=== PATIENT | female | born 1945 | race Caucasian/White ===

== ENCOUNTER 2018-04-28 12:58 | Inpatient (IN) | payer MEDICARE, OTHER ==
--- NOTE | 2017-05-03 07:02 | NUR ---
NO CHANGE IN PT'S STATUS, DENIES, ANY DISCOMFORTS. REPORTED OFF TO KASIE BRANHAM
[~2018-04-28] VITALS: Ht 162.6 cm; Wt 86.3 kg
[~2018-04-28 12:58] MED LIST: ALDACTONE25 MG PO; ASPIRIN81 MG PO; COREG CR10 MG PO; FISH OIL500 MG PO; GABAPENTIN300 MG PO; GLIPIZIDE10 MG PO; JANUVIA100 MG PO; LASIX40 MG PO; LEVOTHYROXINE50 MCG PO; LIPITOR10 MG PO; METFORMIN HCL500 MG PO; PLAVIX75 MG PO; VENLAFAXINE HCL50 MG PO; VITAMIN B-121000 MCG PO; VITAMIN D32000 UNI1 PO; ZESTRIL10 MG PO
--- OUTSIDE RECORDS SUMMARY | 2018-04-28 13:02 | XMS REPORT | Continuity of Care Document ---
Author Author [facility] Interface Address Unknown Phone Unavailable Problems Problem Status Onset Date Classification Date Reported Comments Source RIGHT ARM Active 11/12/2017 [facility] LT HEART CATH / CORONARY STENTS Active 09/06/2017 [facility] LT HEAT CATH / STENT PLACEMENT Active 08/21/2017 [facility] HTN heart dis, benign, with CHF Active Problem 10/30/2013 [facility] Hypercholesterolemia Active Problem 10/30/2013 Grace Weldon NE Old myocardial infarction Active Problem 10/30/2013 Mohannamarie Weldon Claudication Active Problem 10/30/2013 [facility] Weldon Chest pain at rest Active Problem 10/30/2013 [facility] Weldon Chronic diastolic heart failure Active Problem 10/30/2013 Grace Weldon PTCA Status Active Problem 10/30/2013 Mohannamarie Weldon Abnormal EKG Active Problem 10/30/2013 Grace Weldon Angina Active Problem 10/30/2013 Grace Weldon Dizziness and giddiness Active Problem 10/30/2013 Mohannamarie Weldon CHF Chronic Systolic Heart Failure Active Problem 10/30/2013 Grace Weldon Unspecified acute edema of lung Active Problem 10/30/2013 Grace Weldon LBBB Left Bundle Branch Block Active Problem 10/30/2013 Grace Weldon Diabetes with renal manifestations, type II or unspecified type, not stated as uncontrolled Active Problem 10/30/2013 Grace Weldon CAD, [place] Coronary Artery Active Problem 10/30/2013 Grace Weldon Hearing decreased Active Problem 09/11/2017 [facility] Depression Active Problem 09/11/2017 [facility] DM (<span ID="[id number]">Confirmed</span>) Active Problem 09/11/2017 [facility] Thyroid disease Active Problem 09/11/2017 [facility] SOB on exertion(<span ID="[id number]">Confirmed</span>) Active Problem 09/11/2017 [facility] Hypercholesteremia Active Problem 09/11/2017 [facility] HTN (<span ID="[id number]">Confirmed</span>) Active Problem 09/11/2017 [facility] Heart attack Resolved Problem 09/11/2017 [facility] ATHSCL HEART DISEASE OF [place] CORONARY Active [facility] STIFFNESS OF RIGHT SHOULDER, NOT ELSEWHE Active [facility] ADHESIVE CAPSULITIS OF RIGHT SHOULDER Active [facility] OTHER SHOULDER LESIONS, RIGHT SHOULDER Active [facility] PAIN IN RIGHT SHOULDER Active [facility] Medications Medication Details Route Status Patient Instructions Ordering Provider Order Date Source pioglitazone 15 mg, 1 tab, Route: PO, Drug form: TAB, Daily, Dosing Weight 80.909, kg, Start date: 09/08/17 9:00:00 CDT, Duration: 30 day, Stop date: 10/07/17 9:00:00 CDTNotes: (Same as: Actos) Inactive 09/08/2017 [facility] Fish Oil 1,200 mg, Route: PO, Drug form: CAP, TID, Dosing Weight 80.909, kg, Start date: 09/08/17 9:00:00 CDT, Duration: 30 day, Stop date: 10/07/17 17:00:00 CDT No Longer Active 09/08/2017 [facility] 24 HR Metoprolol Tartrate 25 MG Extended Release Tablet [Toprol] 25 mg, 1 tab, Route: PO, Drug form: ERTAB, Daily, Start date: 09/08/17 9:00:00 CDT, Duration: 30 day, Stop date: 10/07/17 9:00:00 CDTNotes: (Same as: Toprol XL) Do Not Crush Inactive 09/08/2017 [facility] Lisinopril 10 mg, 2 tab, Route: PO, Drug form: TAB, Daily, Dosing Weight 80.909, kg, Start date: 09/08/17 9:00:00 CDT, Duration: 30 day, Stop date: 10/07/17 9:00:00 CDTNotes: (Same as: Prinivil, Zestril) Inactive 09/08/2017 [facility] gabapentin 300 MG Oral Capsule 300 mg, 1 cap, Route: PO, Drug form: CAP, Daily, Dosing Weight 80.909, kg, Start date: 09/08/17 9:00:00 CDT, Duration: 30 day, Stop date: 10/07/17 9:00:00 CDTNotes: (Same as: Neurontin) Inactive 09/08/2017 [facility] Furosemide 20 MG Oral Tablet 20 mg, 1 tab, Route: PO, Drug form: TAB, Daily, Dosing Weight 80.909, kg, Start date: 09/08/17 9:00:00 CDT, Duration: 30 day, Stop date: 10/07/17 9:00:00 CDTNotes: (Same as: Lasix) May cause GI upset. Give with food or milk. Inactive 09/08/2017 [facility] clopidogrel 75 mg, 1 tab, Route: PO, Drug form: TAB, Daily, Dosing Weight 80.909, kg, Start date: 09/08/17 9:00:00 CDT, Duration: 30 day, Stop date: 10/07/17 9:00:00 CDTNotes: (Same As: Plavix) Inactive 09/08/2017 [facility] atorvastatin 20 mg, 2 tab, Route: PO, Drug form: TAB, Daily, Dosing Weight 80.909, kg, Start date: 09/08/17 9:00:00 CDT, Duration: 30 day, Stop date: 10/07/17 9:00:00 CDTNotes: (Same As: Lipitor) Inactive 09/08/2017 [facility] MaxEPA 1 gm, 1 cap, Route: PO, Drug form: CAP, TID, Start date: 09/08/17 9:00:00 CDT, Duration: 30 day, Stop date: 10/07/17 17:00:00 CDTNotes: (Same as: MaxEPA, [place] 3 fish oil ) Non-Formulary Drug Inactive 09/08/2017 [facility] Thyroxine 100 microgram, 1 tab, Route: PO, Drug form: TAB, Q630AM, Dosing Weight 80.909, kg, Start date: 09/08/17 6:30:00 CDT, Duration: 30 day, Stop date: 10/07/17 6:30:00 CDTNotes: Take 1 hour before or 2 hours after meal; Enteral feeds may interefere with the absorption of this medication. (Same as:Levothroid, Synthroid) Inactive 09/08/2017 [facility] Famotidine 20 mg, 1 tab, Route: PO, Drug form: TAB, Q24H, Dosing Weight 80.909, kg, Start date: 09/07/17 21:00:00 CDT, Duration: 30 day, Stop date: 10/06/17 21:00:00 CDTNotes: (Same as: Pepcid) No Longer Active 09/08/2017 [facility] Aspirin 81 MG Enteric Coated Tablet 81 mg, 1 tab, Route: PO, Drug form: ECTAB, Daily, Dosing Weight 80.909, kg, Start date: 09/07/17 18:14:00 CDT, Duration: 30 day, Stop date: 10/07/17 9:00:00 CDTNotes: Do not crush or chew. (Same As: Ecotrin) No Longer Active 09/07/2017 [facility] Nitroglycerin 0.4 mg, 1 tab, Route: SL, Drug form: TAB, Q5Min, Dosing Weight 80.909, kg, PRN Chest Pain, Start date: 09/07/17 17:48:00 CDT, Duration: 3 doses or times, Stop date: Limited # of timesNotes: (Same as: Nitroquick, Nitrostat) "Do Not Crush" Sublingual tablet No Longer Active 09/07/2017 [facility] Diphenhydramine 25 mg, 1 tab, Route: PO, Drug form: TAB, Bedtime, Dosing Weight 80.909, kg, PRN Insomnia, Start date: 09/07/17 17:48:00 CDT, Duration: 30 day, Stop date: 10/07/17 17:47:00 CDT No Longer Active 09/07/2017 [facility] Morphine 4 mg, 2 mL, Route: IVP, Drug form: SOLN, Q2H, Dosing Weight 80.909, kg, PRN Pain Score 7-10, Start date: 09/07/17 17:48:00 CDT, Duration: 30 day, Stop date: 10/07/17 17:47:00 CDT No Longer Active 09/07/2017 [facility] Ondansetron 4 mg, 1 tab, Route: PO, Drug form: TAB, Q8H, Dosing Weight 80.909, kg, PRN Nausea & Vomiting, Start date: 09/07/17 17:48:00 CDT, Duration: 30 day, Stop date: 10/07/17 17:47:00 CDTNotes: (Same as: Zofran) No Longer Active 09/07/2017 [facility] Acetaminophen 325 MG / Hydrocodone Bitartrate 5 MG Oral Tablet 1 tab, Route: PO, Drug Form: TAB, Dosing Weight 80.909, kg, Q4H, PRN Pain Score 4-6, Start date: 09/07/17 17:48:00 CDT, Duration: 30 day, Stop date: 10/07/17 17:47:00 CDTNotes: (Same as: [place] 325/5) Do not exceed 4gm/day of acetaminophen. No Longer Active 09/07/2017 [facility] Sodium Chloride 0.9% IV 750 mL 750 mL, Rate: 75 ml/hr, Infuse over: 10 hr, Route: IV, Dosing Weight 80.909 kg, Total Volume: 750, Start date: 09/07/17 17:48:00 CDT, Duration: 10 hr, Stop date: 09/08/17 3:47:00 CDT, 1.94, m2 No Longer Active 09/07/2017 [facility] Sodium Chloride 0.9% IV 1,000 mL 1,000 mL, Rate: 100 ml/hr, Infuse over: 10 hr, Route: IV, Dosing Weight 80.909 kg, Total Volume: 1,000, Start date: 09/07/17 12:42:00 CDT, Duration: 30 day, Stop date: 10/07/17 12:41:00 CDT, 1.94, m2 No Longer Active 09/07/2017 [facility] Benadryl 50 mg, Route: PO, ONCE, Dosing Weight 80.909, kg, Start date: 09/07/17 12:42:00 CDT, Stop date: 09/07/17 12:42:00 CDT Inactive 09/07/2017 [facility] Alprazolam 0.5 MG Oral Tablet [Xanax] 0.5 mg, Route: PO, Drug form: TAB, ONCE, Dosing Weight 80.909, kg, Start date: 09/07/17 12:42:00 CDT, Stop date: 09/07/17 12:42:00 CDT Inactive 09/07/2017 [facility] Vitamin D3 See Instructions, 0 Refill(s) Active 09/07/2017 [facility] naproxen 500 mg oral tablet 500 mg=1 tab, PO, BID, # 60 tab, 0 Refill(s) Active 09/07/2017 [facility] ciprofloxacin 500 mg/5 mL oral liquid 250 mg=2.5 mL, PO, Q12H, # 100 mL, 0 Refill(s) Active 09/07/2017 [facility] Nitroglycerin 0.4 mg, Route: SL, Drug form: TAB, Q5Min, Dosing Weight 81.818, kg, PRN Chest Pain, Start date: 08/29/17 16:50:00 CDT, Duration: 3 doses or times, Stop date: Limited # of times Inactive 08/29/2017 [facility] Acetaminophen 325 MG / Hydrocodone Bitartrate 5 MG Oral Tablet 1 tab, Route: PO, Dosing Weight 81.818, kg, Q4H, PRN Pain Score 4-6, Start date: 08/29/17 16:50:00 CDT, Duration: 30 day, Stop date: 09/28/17 16:49:00 CDT Inactive 08/29/2017 [facility] Morphine 4 mg, Route: IVP, Q2H, Dosing Weight 81.818, kg, PRN Pain Score 7-10, Start date: 08/29/17 16:50:00 CDT, Duration: 30 day, Stop date: 09/28/17 16:49:00 CDT Inactive 08/29/2017 [facility] Sodium Chloride 0.9% IV 750 mL 750 mL, Rate: 75 ml/hr, Infuse over: 10 hr, Route: IV, Dosing Weight 81.818 kg, Total Volume: 750, Start date: 08/29/17 16:50:00 CDT, Duration: 10 hr, Stop date: 08/30/17 2:49:00 CDT, 1.95, m2 Inactive 08/29/2017 [facility] clopidogrel 75 mg oral tablet 75 mg=1 tab, PO, Daily, # 90 tab, 1 Refill(s) Active 08/29/2017 [facility] normal saline 0.9% IV 1,000 mL 1,000 mL, Rate: 100 ml/hr, Infuse over: 10 hr, Route: IV, Dosing Weight 81.818 kg, Total Volume: 1,000, Start date: 08/29/17 14:40:00 CDT, Duration: 30 day, Stop date: 09/28/17 14:39:00 CDT, 1.95, m2 Inactive 08/29/2017 [facility] Benadryl 50 mg, 1 cap, Route: PO, Drug form: CAP, ONCE, Dosing Weight 81.818, kg, Start date: 08/29/17 14:17:00 CDT, Stop date: 08/29/17 14:17:00 CDTNotes: (Same as: Benadryl) Inactive 08/29/2017 [facility] Alprazolam 0.5 MG Oral Tablet [Xanax] 0.5 mg, 1 tab, Route: PO, Drug form: TAB, TID, Dosing Weight 81.818, kg, PRN Anxiety, Start date: 08/29/17 14:17:00 CDT, Duration: 30 day, Stop date: 09/28/17 14:16:00 CDTNotes: With food or milk (Same as: Xanax) Inactive 08/29/2017 [facility] Acetaminophen 300 MG / Codeine Phosphate 60 MG Oral Tablet 1 tab, PO, Q6H, 0 Refill(s) Active 08/23/2017 [facility] Fish Oil 1200 mg oral capsule 1,200 mg=1 cap, PO, TID, 0 Refill(s) Active 08/23/2017 [facility] Aspirin 81 MG Enteric Coated Tablet 81 mg=1 tab, PO, Daily, # 90 tab, 3 Refill(s) Active 08/23/2017 [facility] metFORMIN 1000 mg oral tablet, extended release 1,000 mg=1 tab, PO, Daily, 0 Refill(s) Active 08/23/2017 [facility] lisinopril 10 mg oral tablet 10 mg=1 tab, PO, Daily, 0 Refill(s) Active 08/23/2017 [facility] levothyroxine 100 mcg (0.1 mg) oral tablet 100 microgram=1 tab, PO, Daily, 0 Refill(s) Active 08/23/2017 [facility] Vitamin D2 PO, 0 Refill(s) Active 08/23/2017 [facility] atorvastatin 20 mg oral tablet 20 mg=1 tab, PO, Daily, 0 Refill(s) Active 08/23/2017 [facility] pioglitazone 15 mg oral tablet 15 mg=1 tab, PO, Daily, 0 Refill(s) Active 08/23/2017 [facility] gabapentin 300 MG Oral Capsule 300 mg=1 cap, PO, Daily, # 90 cap, 0 Refill(s) Active 08/23/2017 [facility] Furosemide 20 MG Oral Tablet 20 mg=1 tab, PO, Daily, 0 Refill(s) Active 08/23/2017 [facility] metoprolol 25 mg oral tablet, extended release 25 mg=1 tab, PO, Daily, # 30 tab, 0 Refill(s) Active 08/23/2017 [facility] Allergies, Adverse Reactions, Alerts Substance Category Reaction Severity Reaction type Status Date Reported Comments Source Immunizations Immunization Date Given Site Status Last Updated Comments Source Results Order Name Results Value Reference Range Date Interpretation Comments Source ELECTROLYTES AGAP 15.4 meq/L 10.0 - 20.0 09/07/2017 [facility] ELECTROLYTES eGFR 30 mL/min/1.73m2 09/07/2017 Result Comment: The eGFR is calculated using the CKD-EPI formula. In most young, healthy individuals the eGFR will be >90 mL/min/1.73m2. The eGFR declines with age. An eGFR of 60-89 may be normal in some populations, particularly the elderly, for whom the CKD-EPI formula has not been extensively validated. Use of the eGFR is not recommended in the following populations: Individuals with unstable creatinine concentrations, including patients and those with serious co-morbid conditions. Patients with extremes in muscle mass or diet. The data above are obtained from the National Kidney Disease Education Program (NKDEP) which additionally recommends that when the eGFR is used in patients with extremes of body mass index for purposes of drug dosing, the eGFR should be multiplied by the estimated BMI. [facility] ELECTROLYTES Potassium Lvl 4.4 meq/L 3.5 - 5.1 09/07/2017 [facility] ELECTROLYTES Sodium Lvl 142 meq/L 135 - 145 09/07/2017 [facility] ELECTROLYTES Calcium Lvl 9.2 mg/dL 8.5 - 10.5 09/07/2017 [facility] ELECTROLYTES CO2 26 meq/L 24 - 32 09/07/2017 [facility] ELECTROLYTES Chloride Lvl 105 meq/L 95 - 109 09/07/2017 [facility] ELECTROLYTES Creatinine Lvl 1.69 mg/dL 0.50 - 1.40 09/07/2017 [facility] ELECTROLYTES BUN 22 mg/dL 7 - 22 09/07/2017 [facility] ELECTROLYTES Glucose Lvl 89 mg/dL 70 - 99 09/07/2017 [facility] HEMATOLOGY Basophils # 0.1 K/CMM 0.0 - 0.2 09/07/2017 [facility] HEMATOLOGY Lymphocytes # 2.8 K/CMM 1.0 - 5.5 09/07/2017 [facility] HEMATOLOGY Monocytes # 1.1 K/CMM 0.0 - 0.8 09/07/2017 [facility] HEMATOLOGY Segs-Bands # 6.2 K/CMM 1.5 - 8.1 09/07/2017 [facility] Basophils 0.7 % 0.0 - 1.0 09/07/2017 [facility] HEMATOLOGY Eosinophils # 0.3 K/CMM 0.0 - 0.5 09/07/2017 [facility] HEMATOLOGY Segs 58.8 % 45.0 - 75.0 09/07/2017 [facility] Monocytes 10.9 % 2.0 - 12.0 09/07/2017 [facility] Eosinophils 2.6 % 0.0 - 4.0 09/07/2017 [facility] Lymphocytes 27.0 % 20.0 - 40.0 09/07/2017 [facility] MCHC 33.3 g/dL 32.0 - 36.0 09/07/2017 [facility] RDW 12.3 % 11.5 - 14.5 09/07/2017 [facility] Platelet 249 K/CMM 133 - 450 09/07/2017 [facility] MPV 9.1 fL 7.4 - 10.4 09/07/2017 [facility] MCH 33.0 pg 27.0 - 31.0 09/07/2017 [facility] MCV 99.0 fL 80.0 - 98.0 09/07/2017 [facility] Hgb 10.4 g/dL 12.0 - 16.0 09/07/2017 [facility] Hct 31.2 % 36.0 - 48.0 09/07/2017 [facility] RBC 3.15 M/CMM 4.20 - 5.40 09/07/2017 [facility] WBC 10.4 K/CMM 3.7 - 10.4 09/07/2017 [facility] CHEM PANEL eGFR 41 mL/min/1.73m2 08/23/2017 Result Comment: The eGFR is calculated using the CKD-EPI formula. In most young, healthy individuals the eGFR will be >90 mL/min/1.73m2. The eGFR declines with age. An eGFR of 60-89 may be normal in some populations, particularly the elderly, for whom the CKD-EPI formula has not been extensively validated. Use of the eGFR is not recommended in the following populations: Individuals with unstable creatinine concentrations, including patients and those with serious co-morbid conditions. Patients with extremes in muscle mass or diet. The data above are obtained from the National Kidney Disease Education Program (NKDEP) which additionally recommends that when the eGFR is used in patients with extremes of body mass index for purposes of drug dosing, the eGFR should be multiplied by the estimated BMI. [facility] CHEM PANEL Alk Phos 56 unit/L 39 - 136 08/23/2017 [facility]M PANEL Bili Total 0.4 mg/dL 0.2 - 1.3 08/23/2017 [facility]M PANEL ALT 16 unit/L 0 - 65 08/23/2017 [facility] PANEL AST 17 unit/L 0 - 37 08/23/2017 [facility] PAN[facility] Sodium Lvl 144 meq/L 135 - 145 08/23/2017 [facility] Creatinine Lvl 1.29 mg/dL 0.50 - 1.40 08/23/2017 [facility] Chloride Lvl 105 meq/L 95 - 109 08/23/2017 [facility] PANEL Potassium Lvl 3.7 meq/L 3.5 - 5.1 08/23/2017 [facility]M PANEL CO2 30 meq/L 24 - 32 08/23/2017 [facility] PAN[facility] BUN 18 mg/dL 7 - 22 08/23/2017 [facility] PAN[facility] Glucose Lvl 192 mg/dL 70 - 99 08/23/2017 [facility] PANEL Total Protein 8.0 g/dL 6.4 - 8.4 08/23/2017 [facility] PAN[facility] Calcium Lvl 9.6 mg/dL 8.5 - 10.5 08/23/2017 [facility] PANEL Albumin Lvl 3.4 g/dL 3.5 - 5.0 08/23/2017 [facility] PAN[facility] Globulin 4.6 g/dL 2.7 - 4.2 08/23/2017 [facility] PAN[facility] A/G Ratio 0.7 0.7 - 1.6 08/23/2017 [facility] PAN[facility] B/C Ratio 14 6 - 25 08/23/2017 [facility]M PANEL AGAP 12.7 meq/L 10.0 - 20.0 08/23/2017 [facility] HEMATOLOGY INR 0.94 0.85 - 1.17 08/23/2017 [facility] HEMATOLOGY PT 12.6 s 12.0 - 14.7 08/23/2017 [facility] HEMATOLOGY Eosinophils # 0.1 K/CMM 0.0 - 0.5 08/23/2017 [facility] HEMATOLOGY Monocytes # 0.6 K/CMM 0.0 - 0.8 08/23/2017 [facility] HEMATOLOGY Eosinophils 1.5 % 0.0 - 4.0 08/23/2017 [facility] HEMATOLOGY Basophils 0.5 % 0.0 - 1.0 08/23/2017 [facility] HEMATOLOGY Lymphocytes # 1.6 K/CMM 1.0 - 5.5 08/23/2017 [facility] HEMATOLOGY Segs-Bands # 5.2 K/CMM 1.5 - 8.1 08/23/2017 [facility] HEMATOLOGY Segs 68.6 % 45.0 - 75.0 08/23/2017 [facility] HEMATOLOGY Monocytes 8.2 % 2.0 - 12.0 08/23/2017 [facility] Lymphocytes 21.2 % 20.0 - 40.0 08/23/2017 [facility] HEMATOLOGY MPV 9.1 fL 7.4 - 10.4 08/23/2017 [facility] HEMATOLOGY RDW 11.9 % 11.5 - 14.5 08/23/2017 [facility] HEMATOLOGY Platelet 248 K/CMM 133 - 450 08/23/2017 [facility] MCHC 33.5 g/dL 32.0 - 36.0 08/23/2017 [facility] Hgb 10.8 g/dL 12.0 - 16.0 08/23/2017 [facility] HEMATOLOGY RBC 3.30 M/CMM 4.20 - 5.40 08/23/2017 [facility] WBC 7.6 K/CMM 3.7 - 10.4 08/23/2017 [facility] MCH 32.8 pg 27.0 - 31.0 08/23/2017 [facility] HEMATOLOGY MCV 98.1 fL 80.0 - 98.0 08/23/2017 [facility] HEMATOLOGY Hct 32.4 % 36.0 - 48.0 08/23/2017 [facility] LIPIDS VLDL 16 08/23/2017 [facility] LIPIDS LDL (Calculated) 68 mg/dL <=99 mg/dL 08/23/2017 [facility] LIPIDS Chol 138 mg/dL <=199 mg/dL 08/23/2017 [facility] LIPIDS Trig 80 mg/dL <=149 mg/dL 08/23/2017 [facility] LIPIDS HDL 54 mg/dL >=61 mg/dL 08/23/2017 [facility] LIPIDS CHD Risk 2.56 3.90 - 5.80 08/23/2017 [facility] Vital Signs Vital Sign Value Date Comments Source Respitory Rate 10 09/08/2017 [facility] Systolic (mm Hg) 132 09/08/2017 [facility] Diastolic (mm Hg) 60 09/08/2017 [facility] Respitory Rate 11 09/08/2017 [facility] Systolic (mm Hg) 129 09/08/2017 [facility] Diastolic (mm Hg) 55 09/08/2017 [facility] Systolic (mm Hg) 129 09/08/2017 [facility] Diastolic (mm Hg) 72 09/08/2017 [facility] Respitory Rate 15 09/08/2017 [facility] BMI Calculated 30.62 09/07/2017 [facility] Weight 80.909 09/07/2017 [facility] Height 162.56 cm 09/07/2017 [facility] Height 162.56 cm 08/29/2017 [facility] Weight 81.818 08/29/2017 [facility] BMI Calculated 30.96 08/29/2017 [facility] Respitory Rate 16 08/23/2017 [facility] Systolic (mm Hg) 164 08/23/2017 [facility] Diastolic (mm Hg) 79 08/23/2017 [facility] Heart Rate 69 08/23/2017 [facility] Temperature Oral (F) 98.2 F 08/23/2017 [facility] BMI Calculated 29.76 08/23/2017 [facility] Height 162.56 cm 08/23/2017 [facility] Weight 78.636 08/23/2017 [facility] Encounters Location Location Details Encounter Type Encounter Number Reason For Visit Attending Provider ADM Date DC Date Status Source Grace Weldon MD PA Unknown [id number] 10/15/2013 10/15/2013 Grace Weldon [facility] Bedded Outpatient [id number] Bebo Goldstein 08/29/2017 08/30/2017 [facility] Bedded Outpatient [id number] Junior Young 09/07/2017 09/08/2017 [facility] Procedures Procedure Code Date Perfomer Comments Source Cardiac catheterisation [id number] 04/10/2010 [facility] Bilateral tubal ligation [id number] [facility] Cardiac catheterization [id number] [facility] Cholecystectomy [id number] [facility] Stent placement [id number] [facility]
--- OUTSIDE RECORDS SUMMARY | 2018-04-28 13:02 | XMS REPORT | Summary of Care ---
Author Author [facility] Organization [facility] Address Unknown Phone Unavailable Encounter ROBINA Taylor(PRACHI) [id number] Date(s): 08/29/17 - 08/29/17 [facility] [address] [place] [address]- Discharge Disposition: Home or Self Care Attending Physician: Junior Young MD Referring Physician: Bebo Hernandez MD Vital Signs Most recent to 1 2 oldest [Reference Range]: Height 162.56 cm 162.56 cm (08/29/17 2:12 PM) (08/23/17 11:32 AM) Temperature Oral 98.2 DegF [96.4-99.1 DegF] (08/23/17 11:33 AM) Blood Pressure 164/79 mmHg [90-140/60-90 mmHg] *HI* (08/23/17 11:33 AM) Respiratory Rate 16 BRMIN [14-20 BRMIN] (08/23/17 11:33 AM) Peripheral Pulse 69 bpm Rate [60-100 bpm] (08/23/17 11:33 AM) Weight 81.818 kg 78.636 kg (08/29/17 2:12 PM) (08/23/17 11:32 AM) Body Mass Index 30.96 m2 29.76 m2 (08/29/17 2:12 PM) (08/23/17 11:32 AM) Problem List Condition Effective Dates Status Health Status Informant Hearing Active decreased(Confirmed) Depression(Confirmed Active ) DM (diabetes Active mellitus)(Confirmed) Thyroid Active disease(Confirmed) SOB (shortness of Active breath) on exertion(Confirmed) Hypercholesteremia(C Active onfirmed) HTN Active (hypertension)(Confi rmed) Heart Resolved attack(Confirmed) Allergies, Adverse Reactions, Alerts Substance Reaction Severity Status NKDA Active Medications acetaminophen-codeine 300 mg-60 mg oral tablet 1 tab, PO, Q6H, 0 Refill(s) Start Date: 08/23/17 Status: Ordered acetaminophen-hydrocodone 325 mg-5 mg oral tablet 1 tab, Route: PO, Dosing Weight 81.818, kg, Q4H, PRN Pain Score 4-6, Start date: 08/29/17 16:50:00 CDT, Duration: 30 day, Stop date: 09/28/17 16:49:00 CDT Start Date: 08/29/17 Stop Date: 08/29/17 Status: Discontinued aspirin 81 mg tablet, enteric coated 81 mg=1 tab, PO, Daily, # 90 tab, 3 Refill(s) Start Date: 08/23/17 Status: Ordered atorvastatin 20 mg oral tablet 20 mg=1 tab, PO, Daily, 0 Refill(s) Start Date: 08/23/17 Status: Ordered Benadryl 50 mg, 1 cap, Route: PO, Drug form: CAP, ONCE, Dosing Weight 81.818, kg, Start d ate: 08/29/17 14:17:00 CDT, Stop date: 08/29/17 14:17:00 CDT Notes: (Same as: Benadryl) Start Date: 08/29/17 Stop Date: 08/29/17 Status: Ordered clopidogrel 75 mg oral tablet 75 mg=1 tab, PO, Daily, # 90 tab, 1 Refill(s) Start Date: 08/29/17 Stop Date: 02/25/18 Status: Ordered Fish Oil 1200 mg oral capsule 1,200 mg=1 cap, PO, TID, 0 Refill(s) Start Date: 08/23/17 Status: Ordered furosemide 20 mg oral tablet 20 mg=1 tab, PO, Daily, 0 Refill(s) Start Date: 08/23/17 Status: Ordered gabapentin 300 mg oral capsule 300 mg=1 cap, PO, Daily, # 90 cap, 0 Refill(s) Start Date: 08/23/17 Status: Ordered levothyroxine 100 mcg (0.1 mg) oral tablet 100 microgram=1 tab, PO, Daily, 0 Refill(s) Start Date: 08/23/17 Status: Ordered lisinopril 10 mg oral tablet 10 mg=1 tab, PO, Daily, 0 Refill(s) Start Date: 08/23/17 Status: Ordered metFORMIN 1000 mg oral tablet, extended release 1,000 mg=1 tab, PO, Daily, 0 Refill(s) Start Date: 08/23/17 Status: Ordered metoprolol 25 mg oral tablet, extended release 25 mg=1 tab, PO, Daily, # 30 tab, 0 Refill(s) Start Date: 08/23/17 Status: Ordered morphine Sulfate 4 mg, Route: IVP, Q2H, Dosing Weight 81.818, kg, PRN Pain Score 7-10, Start date : 08/29/17 16:50:00 CDT, Duration: 30 day, Stop date: 09/28/17 16:49:00 CDT Start Date: 08/29/17 Stop Date: 08/29/17 Status: Discontinued nitroglycerin SL Tab 0.4 mg, Route: SL, Drug form: TAB, Q5Min, Dosing Weight 81.818, kg, PRN Chest Pa in, Start date: 08/29/17 16:50:00 CDT, Duration: 3 doses or times, Stop date: Taylor gillette # of times Start Date: 08/29/17 Stop Date: 08/29/17 Status: Discontinued normal saline 0.9% IV 1,000 mL 1,000 mL, Rate: 100 ml/hr, Infuse over: 10 hr, Route: IV, Dosing Weight 81.818 k g, Total Volume: 1,000, Start date: 08/29/17 14:40:00 CDT, Duration: 30 day, Sto p date: 09/28/17 14:39:00 CDT, 1.95, m2 Start Date: 08/29/17 Stop Date: 08/29/17 Status: Discontinued pioglitazone 15 mg oral tablet 15 mg=1 tab, PO, Daily, 0 Refill(s) Start Date: 08/23/17 Status: Ordered Sodium Chloride 0.9% IV 750 mL 750 mL, Rate: 75 ml/hr, Infuse over: 10 hr, Route: IV, Dosing Weight 81.818 kg, Total Volume: 750, Start date: 08/29/17 16:50:00 CDT, Duration: 10 hr, Stop date : 08/30/17 2:49:00 CDT, 1.95, m2 Start Date: 08/29/17 Stop Date: 08/29/17 Status: Discontinued Vitamin D2 PO, 0 Refill(s) Start Date: 08/23/17 Status: Ordered Xanax 0.5 mg oral tablet 0.5 mg, 1 tab, Route: PO, Drug form: TAB, TID, Dosing Weight 81.818, kg, PRN Anx iety, Start date: 08/29/17 14:17:00 CDT, Duration: 30 day, Stop date: 09/28/17 1 4:16:00 CDT Notes: With food or milk(Same as: Xanax) Start Date: 08/29/17 Stop Date: 08/29/17 Status: Discontinued Results ELECTROLYTES Most recent to 1 oldest [Reference Range]: Sodium Lvl [135-145 144 mEq/L mEq/L] (08/23/17 11:43 AM) Potassium Lvl 3.7 mEq/L [3.5-5.1 mEq/L] (08/23/17 11:43 AM) Chloride Lvl [95-109 105 mEq/L mEq/L] (08/23/17 11:43 AM) CO2 [24-32 mEq/L] 30 mEq/L (08/23/17 11:43 AM) AGAP [10.0-20.0 12.7 mEq/L mEq/L] (08/23/17 11:43 AM) CHEM PANEL Most recent to 1 oldest [Reference Range]: Creatinine Lvl 1.29 mg/dL [0.50-1.40 mg/dL] (08/23/17 11:43 AM) eGFR 41 mL/min/1.73m2 1 *NA* (08/23/17 11:43 AM) BUN [7-22 mg/dL] 18 mg/dL (08/23/17 11:43 AM) B/C Ratio [6-25] 14 (08/23/17 11:43 AM) Glucose Lvl [70-99 192 mg/dL mg/dL] *HI* (08/23/17 11:43 AM) Total Protein 8.0 g/dL [6.4-8.4 g/dL] (08/23/17 11:43 AM) Albumin Lvl [3.5-5.0 3.4 g/dL g/dL] *LOW* (08/23/17 11:43 AM) Globulin [2.7-4.2 4.6 g/dL g/dL] *HI* (08/23/17 11:43 AM) A/G Ratio [0.7-1.6] 0.7 (08/23/17 11:43 AM) Calcium Lvl 9.6 mg/dL [8.5-10.5 mg/dL] (08/23/17 11:43 AM) ALT [0-65 unit/L] 16 unit/L (08/23/17 11:43 AM) AST [0-37 unit/L] 17 unit/L (08/23/17 11:43 AM) Alk Phos [39-136 56 unit/L unit/L] (08/23/17 11:43 AM) Bili Total [0.2-1.3 0.4 mg/dL mg/dL] (08/23/17 11:43 AM) 1Result Comment: The eGFR is calculated using the [...] from the National Kidney Disease Education Program ( NKDEP) which additionally recommends that when the eGFR is used in patients with extremes of body mass index for purposes of drug dosing, the eGFR should be mul tiplied by the estimated BMI. LIPIDS Most recent to 1 oldest [Reference Range]: CHD Risk [3.90-5.80] 2.56 *LOW* (08/23/17 11:43 AM) Chol [<=199 mg/dL] 138 mg/dL (08/23/17 11:43 AM) Trig [<=149 mg/dL] 80 mg/dL (08/23/17 11:43 AM) HDL [>=61 mg/dL] 54 mg/dL *LOW* (08/23/17 11:43 AM) LDL (Calculated) 68 mg/dL [<=99 mg/dL] (08/23/17 11:43 AM) VLDL 16 *NA* (08/23/17 11:43 AM) HEMATOLOGY Most recent to 1 oldest [Reference Range]: WBC [3.7-10.4 K/CMM] 7.6 K/CMM (08/23/17 11:43 AM) RBC [4.20-5.40 3.30 M/CMM M/CMM] *LOW* (08/23/17 11:43 AM) Hgb [12.0-16.0 g/dL] 10.8 g/dL *LOW* (08/23/17 11:43 AM) Hct [36.0-48.0 %] 32.4 % *LOW* (08/23/17:43 AM) MCV [80.0-98.0 fL] 98.1 fL *HI* (08/23/17:43 AM) MCH [27.0-31.0 pg] 32.8 pg *HI* (08/23/17 11:43 AM) MCHC [32.0-36.0 33.5 g/dL g/dL] (08/23/17 11:43 AM) RDW [11.5-14.5 %] 11.9 % (08/23/17 11:43 AM) MPV [7.4-10.4 fL] 9.1 fL (08/23/17 11:43 AM) Platelet [133-450 248 K/CMM K/CMM] (08/23/17 11:43 AM) Segs [45.0-75.0 %] 68.6 % (08/23/17 11:43 AM) Lymphocytes 21.2 % [20.0-40.0 %] (08/23/17 11:43 AM) Monocytes [2.0-12.0 8.2 % %] (08/23/17 11:43 AM) Eosinophils [0.0-4.0 1.5 % %] (08/23/17 11:43 AM) Basophils [0.0-1.0 0.5 % %] (08/23/17 11:43 AM) Segs-Bands # 5.2 K/CMM [1.5-8.1 K/CMM] (08/23/17 11:43 AM) Lymphocytes # 1.6 K/CMM [1.0-5.5 K/CMM] (08/23/17 11:43 AM) Monocytes # [0.0-0.8 0.6 K/CMM K/CMM] (08/23/17 11:43 AM) Eosinophils # 0.1 K/CMM [0.0-0.5 K/CMM] (08/23/17 11:43 AM) PT [12.0-14.7 12.6 seconds seconds] (08/23/17 11:43 AM) INR [0.85-1.17] 0.94 (08/23/17 11:43 AM) Immunizations No data available for this section Procedures Procedure Date Related Diagnosis Body Site Status Cardiac catheterisation 2010 Completed Bilateral tubal ligation Completed Cholecystectomy Completed Social History Social History Type Response Smoking Status Never smoker; Exposure to Tobacco Smoke None; Cigarette Smoking Last 365 Days No; Reg Smoking Cessation Counseling No entered on: 08/29/17 Assessment and Plan No data available for this section
--- OUTSIDE RECORDS SUMMARY | 2018-04-28 13:02 | XMS REPORT ---
Author Author Grace Weldon Organization [employer] Address Unknown Phone Unavailable Care Team Providers Care Ream Cutter Name Role Phone Grace Weldon CP Unavailable Encounters Encounter Location Date Unknown Grace Weldon MD [place] October 15, 2013 Problems Problem Type Condition ICD-9 Code Onset Dates Condition Status Problem HTN heart dis, benign, with CHF 402.11 Active Problem Hypercholesterolemia 272.0 Active Problem PA Old myocardial infarction 412 Active Problem Claudication 443.9 Active Problem Chest pain at rest 786.50 Active Problem Chronic diastolic heart failure 428.32 Active Problem PTCA Status V45.82 Active Problem Abnormal EKG 794.31 Active Problem Angina 413.9 Active Problem Dizziness and giddiness 780.4 Active Problem CHF Chronic Systolic Heart Failure 428.22 Active Problem Unspecified acute edema of lung 518.4 Active Problem LBBB Left Bundle Branch Block 426.3 Active Problem Diabetes with renal manifestations, type II or unspecified type, not stated as uncontrolled 250.40 Active Problem CAD, [place] Coronary Artery 414.01 Active Social History Social History Element Qualifiers Date Reported Smoking . Status Never Smoker September 16, 2013 Alcohol Use No. September 16, 2013 Alcohol Screening: No. Points: 0, Interpretation: Negative September 16, 2013 Marital Status: . September 16, 2013 Do you drink alcohol? No. September 16, 2013 Summary Purpose [employer] Submission
--- OUTSIDE RECORDS SUMMARY | 2018-04-28 13:03 | XMS REPORT | Summary of Care ---
Author Author [facility] Organization [facility] Address Unknown Phone Unavailable Encounter ROBINA Taylor(PRACHI) [id number] Date(s): 09/07/17 - 09/08/17 [facility] [address] [place] [address]- [phone] Discharge Disposition: Home or Self Care Attending Physician: Junior Young MD Referring Physician: Junior Young MD Vital Signs 1 2 3 Most recent to oldest [Reference Range]: 162.56 cm (09/07/17 11:24 AM) Height 132/60 mmHg (09/08/17 6:00 AM) 129/55 mmHg (09/08/17 2:00 AM) 129/72 mmHg (09/08/17 12:00 AM) Blood Pressure [90-140/60-90 mmHg] 10 BRMIN *LOW* (09/08/17 6:00 AM) 11 BRMIN *LOW* (09/08/17 2:00 AM) 15 BRMIN (09/08/17 12:00 AM) Respiratory Rate [14-20 BRMIN] 80.909 kg (09/07/17 11:24 AM) Weight 30.62 m2 (09/07/17 11:24 AM) Body Mass Index Problem List Condition Effective Dates Status Health Status Informant Hearing Active decreased(Confirmed) Depression(Confirmed Active ) DM (diabetes Active mellitus)(Confirmed) Thyroid Active disease(Confirmed) SOB (shortness of Active breath) on exertion(Confirmed) Hypercholesteremia(C Active onfirmed) HTN Active (hypertension)(Confi rmed) Heart Resolved attack(Confirmed) Allergies, Adverse Reactions, Alerts Substance Reaction Severity Status NKDA Active Medications acetaminophen-hydrocodone 325 mg-5 mg oral tablet 1 tab, Route: PO, Drug Form: TAB, Dosing Weight 80.909, kg, Q4H, PRN Pain Score 4-6, Start date: 09/07/17 17:48:00 CDT, Duration: 30 day, Stop date: 10/07/17 17 :47:00 CDT Notes: (Same as: [place] 325/5) Do not exceed 4gm/day of acetaminophen. Start Date: 09/07/17 Stop Date: 09/08/17 Status: Discontinued aspirin 81 mg tablet, enteric coated 81 mg, 1 tab, Route: PO, Drug form: ECTAB, Daily, Dosing Weight 80.909, kg, Star t date: 09/07/17 18:14:00 CDT, Duration: 30 day, Stop date: 10/07/17 9:00:00 CDT Notes: Do not crush or chew.(Same As: Ecotrin) Start Date: 09/07/17 Stop Date: 09/08/17 Status: Discontinued atorvastatin 20 mg, 2 tab, Route: PO, Drug form: TAB, Daily, Dosing Weight 80.909, kg, Start date: 09/08/17 9:00:00 CDT, Duration: 30 day, Stop date: 10/07/17 9:00:00 CDT Notes: (Same As: Lipitor) Start Date: 09/08/17 Stop Date: 09/08/17 Status: Discontinued Benadryl 50 mg, Route: PO, ONCE, Dosing Weight 80.909, kg, Start date: 09/07/17 12:42:00 CDT, Stop date: 09/07/17 12:42:00 CDT Start Date: 09/07/17 Stop Date: 09/07/17 Status: Completed ciprofloxacin 500 mg/5 mL oral liquid 250 mg=2.5 mL, PO, Q12H, # 100 mL, 0 Refill(s) Start Date: 09/07/17 Stop Date: 09/17/17 Status: Ordered clopidogrel 75 mg, 1 tab, Route: PO, Drug form: TAB, Daily, Dosing Weight 80.909, kg, Start date: 09/08/17 9:00:00 CDT, Duration: 30 day, Stop date: 10/07/17 9:00:00 CDT Notes: (Same As: Plavix) Start Date: 09/08/17 Stop Date: 09/08/17 Status: Discontinued diphenhydrAMINE 25 mg, 1 tab, Route: PO, Drug form: TAB, Bedtime, Dosing Weight 80.909, kg, PRN Insomnia, Start date: 09/07/17 17:48:00 CDT, Duration: 30 day, Stop date: 17:47:00 CDT Start Date: 09/07/17 Stop Date: 09/08/17 Status: Discontinued famotidine 20 mg, 1 tab, Route: PO, Drug form: TAB, Q24H, Dosing Weight 80.909, kg, Start d ate: 09/07/17 21:00:00 CDT, Duration: 30 day, Stop date: 10/06/17 21:00:00 CDT Notes: (Same as: Pepcid) Start Date: 09/07/17 Stop Date: 09/08/17 Status: Discontinued Fish Oil 1,200 mg, Route: PO, Drug form: CAP, TID, Dosing Weight 80.909, kg, Start date: 09/08/17 9:00:00 CDT, Duration: 30 day, Stop date: 10/07/17 17:00:00 CDT Start Date: 09/08/17 Stop Date: 09/07/17 Status: Deleted furosemide 20 mg oral tablet 20 mg, 1 tab, Route: PO, Drug form: TAB, Daily, Dosing Weight 80.909, kg, Start date: 09/08/17 9:00:00 CDT, Duration: 30 day, Stop date: 10/07/17 9:00:00 CDT Notes: (Same as: Lasix) May cause GI upset. Give with food or milk. Start Date: 09/08/17 Stop Date: 09/08/17 Status: Discontinued gabapentin 300 mg oral capsule 300 mg, 1 cap, Route: PO, Drug form: CAP, Daily, Dosing Weight 80.909, kg, Start date: 09/08/17 9:00:00 CDT, Duration: 30 day, Stop date: 10/07/17 9:00:00 CDT Notes: (Same as: Neurontin) Start Date: 09/08/17 Stop Date: 09/08/17 Status: Discontinued levothyroxine 100 microgram, 1 tab, Route: PO, Drug form: TAB, Q630AM, Dosing Weight 80.909, k g, Start date: 09/08/17 6:30:00 CDT, Duration: 30 day, Stop date: 10/07/17 6:30: 00 CDT Notes: Take 1 hour before or 2 hours after meal; Enteral feeds may interefere wi th the absorption of this medication. (Same as:Levothroid, Synthroid) Start Date: 09/08/17 Stop Date: 09/08/17 Status: Discontinued lisinopril 10 mg, 2 tab, Route: PO, Drug form: TAB, Daily, Dosing Weight 80.909, kg, Start date: 09/08/17 9:00:00 CDT, Duration: 30 day, Stop date: 10/07/17 9:00:00 CDT Notes: (Same as: Prinivil, Zestril) Start Date: 09/08/17 Stop Date: 09/08/17 Status: Discontinued MaxEPA 1 gm, 1 cap, Route: PO, Drug form: CAP, TID, Start date: 09/08/17 9:00:00 CDT, D uration: 30 day, Stop date: 10/07/17 17:00:00 CDT Notes: (Same as: MaxEPA, [place] 3 fish oil )Non-Formulary Drug Start Date: 09/08/17 Stop Date: 09/08/17 Status: Discontinued morphine Sulfate 4 mg, 2 mL, Route: IVP, Drug form: SOLN, Q2H, Dosing Weight 80.909, kg, PRN Pain Score 7-10, Start date: 09/07/17 17:48:00 CDT, Duration: 30 day, Stop date: 17:47:00 CDT Start Date: 09/07/17 Stop Date: 09/08/17 Status: Discontinued naproxen 500 mg oral tablet 500 mg=1 tab, PO, BID, # 60 tab, 0 Refill(s) Start Date: 09/07/17 Status: Ordered nitroglycerin SL Tab 0.4 mg, 1 tab, Route: SL, Drug form: TAB, Q5Min, Dosing Weight 80.909, kg, PRN C hest Pain, Start date: 09/07/17 17:48:00 CDT, Duration: 3 doses or times, Stop d ate: Limited # of times Notes: (Same as:Nitroquick, Nitrostat)"Do Not Crush" Sublingual tablet Start Date: 09/07/17 Stop Date: 09/08/17 Status: Discontinued ondansetron 4 mg, 1 tab, Route: PO, Drug form: TAB, Q8H, Dosing Weight 80.909, kg, PRN Nause a & Vomiting, Start date: 09/07/17 17:48:00 CDT, Duration: 30 day, Stop date: 10/07/17 17:47:00 CDT Notes: (Same as: Zofran) Start Date: 09/07/17 Stop Date: 09/08/17 Status: Discontinued pioglitazone 15 mg, 1 tab, Route: PO, Drug form: TAB, Daily, Dosing Weight 80.909, kg, Start date: 09/08/17 9:00:00 CDT, Duration: 30 day, Stop date: 10/07/17 9:00:00 CDT Notes: (Same as: Actos) Start Date: 09/08/17 Stop Date: 09/08/17 Status: Discontinued Sodium Chloride 0.9% IV 1,000 mL 1,000 mL, Rate: 100 ml/hr, Infuse over: 10 hr, Route: IV, Dosing Weight 80.909 k g, Total Volume: 1,000, Start date: 09/07/17 12:42:00 CDT, Duration: 30 day, Sto p date: 10/07/17 12:41:00 CDT, 1.94, m2 Start Date: 09/07/17 Stop Date: 09/08/17 Status: Discontinued Sodium Chloride 0.9% IV 750 mL 750 mL, Rate: 75 ml/hr, Infuse over: 10 hr, Route: IV, Dosing Weight 80.909 kg, Total Volume: 750, Start date: 09/07/17 17:48:00 CDT, Duration: 10 hr, Stop date : 09/08/17 3:47:00 CDT, 1.94, m2 Start Date: 09/07/17 Stop Date: 09/08/17 Status: Completed Toprol-XL 25 mg oral tablet, extended release 25 mg, 1 tab, Route: PO, Drug form: ERTAB, Daily, Start date: 09/08/17 9:00:00 C DT, Duration: 30 day, Stop date: 10/07/17 9:00:00 CDT Notes: (Same as: Toprol XL) Do Not Crush Start Date: 09/08/17 Stop Date: 09/08/17 Status: Discontinued Vitamin D3 See Instructions, 0 Refill(s) Start Date: 09/07/17 Status: Ordered Xanax 0.5 mg oral tablet 0.5 mg, Route: PO, Drug form: TAB, ONCE, Dosing Weight 80.909, kg, Start date: 0 09/07/17 12:42:00 CDT, Stop date: 09/07/17 12:42:00 CDT Start Date: 09/07/17 Stop Date: 09/07/17 Status: Completed Results ELECTROLYTES Most recent to 1 oldest [Reference Range]: Sodium Lvl [135-145 142 mEq/L mEq/L] (09/07/17 11:26 AM) Potassium Lvl 4.4 mEq/L [3.5-5.1 mEq/L] (09/07/17 11:26 AM) Chloride Lvl [95-109 105 mEq/L mEq/L] (09/07/17 11:26 AM) CO2 [24-32 mEq/L] 26 mEq/L (09/07/17 11:26 AM) AGAP [10.0-20.0 15.4 mEq/L mEq/L] (09/07/17 11:26 AM) CHEM PANEL Most recent to 1 oldest [Reference Range]: Creatinine Lvl 1.69 mg/dL [0.50-1.40 mg/dL] *HI* (09/07/17 11:26 AM) eGFR 30 mL/min/1.73m2 1 *NA* (09/07/17 11:26 AM) BUN [7-22 mg/dL] 22 mg/dL (09/07/17 11:26 AM) Glucose Lvl [70-99 89 mg/dL mg/dL] (09/07/17 11:26 AM) Calcium Lvl 9.2 mg/dL [8.5-10.5 mg/dL] (09/07/17 11:26 AM) 1Result Comment: The eGFR is calculated [...] be mul tiplied by the estimated BMI. HEMATOLOGY Most recent to 1 oldest [Reference Range]: WBC [3.7-10.4 K/CMM] 10.4 K/CMM (09/07/17 11: AM) RBC [4.20-5.40 3.15 M/CMM M/CMM] *LOW* (09/07/17: AM) Hgb [12.0-16.0 g/dL] 10.4 g/dL *LOW* (09/07/17: AM) Hct [36.0-48.0 %] 31.2 % *LOW* (09/07/17: AM) MCV [80.0-98.0 fL] 99.0 fL *HI* (09/07/17: AM) MCH [27.0-31.0 pg] 33.0 pg *HI* (09/07/17: AM) MCHC [32.0-36.0 33.3 g/dL g/dL] (09/07/17 11: AM) RDW [11.5-14.5 %] 12.3 % (09/07/17 11: AM) MPV [7.4-10.4 fL] 9.1 fL (09/07/17 11: AM) Platelet [133-450 249 K/CMM K/CMM] (09/07/17 11:26 AM) Segs [45.0-75.0 %] 58.8 % (09/07/17 11: AM) Lymphocytes 27.0 % [20.0-40.0 %] (09/07/17 11: AM) Monocytes [2.0-12.0 10.9 % %] (09/07/17 11:26 AM) Eosinophils [0.0-4.0 2.6 % %] (09/07/17 11:26 AM) Basophils [0.0-1.0 0.7 % %] (09/07/17 11:26 AM) Segs-Bands # 6.2 K/CMM [1.5-8.1 K/CMM] (09/07/17 11:26 AM) Lymphocytes # 2.8 K/CMM [1.0-5.5 K/CMM] (09/07/17 11:26 AM) Monocytes # [0.0-0.8 1.1 K/CMM K/CMM] *HI* (09/07/17 11:26 AM) Eosinophils # 0.3 K/CMM [0.0-0.5 K/CMM] (09/07/17 11:26 AM) Basophils # [0.0-0.2 0.1 K/CMM K/CMM] (09/07/17 11:26 AM) Immunizations No data available for this section Procedures Procedure Date Related Diagnosis Body Site Status Cardiac catheterisation 2010 Completed Bilateral tubal ligation Completed Cardiac catheterization Completed Cholecystectomy Completed Stent placement Completed Social History Social History Type Response Alcohol Never Smoking Status Never smoker; Exposure to Tobacco Smoke None; Cigarette Smoking Last 365 Days No; Reg Smoking Cessation Counseling No entered on: 09/07/17 Assessment and Plan No data available for this section
--- OUTSIDE RECORDS SUMMARY | 2018-04-28 13:03 | XMS REPORT ---
Author Author [facility] Address Unknown Phone Unavailable Care Team Providers Care Head Of Geography Name Role Phone Unavailable Unavailable Payers Payer Name Policy Type Policy Number Effective Date Expiration Date Problems This patient has no known problems. Allergies, Adverse Reactions, Alerts Allergy Name Allergy Type Status Severity Reaction(s) Onset Date Inactive Date Treating Clinician Comments OSCAR Solares 2014-06-19 00:00:00 Medications This patient has no known medications.
[2018-04-28] MEDS ORDERED: SODIUM CHLORIDE 0.9% 1000ML 1,000 ML IV STA (13:07)
[2018-04-28] MEDS ORDERED: ONDANSETRON HCL INJ 2MG/ML 2ML 2 MG/ML VIAL IV ONE (13:30)
--- NOTE | 2018-04-28 13:36 | Diagnostic Imaging Report ---
A single frontal view of the chest. HISTORY: Vomiting blood COMPARISON: Chest radiograph March 19, 2011 DISCUSSION: Portable technique, limits sensitivity of the exam. Soft tissue attenuation partially limits sensitivity of the exam. Tubes/Lines: None Lungs and pleura: The lungs are well inflated. No evidence of a consolidative pneumonia or pulmonary alveolar edema. No definite pleural effusion or pneumothorax is identified. Heart and mediastinum: The cardiomediastinal silhouette appears unremarkable. Bones and soft tissues: Appear unremarkable, given this limited exam. IMPRESSION: 1. No acute radiographic abnormality. 2. No significant interval change. Signed by: Dr. Clayton Ambrocio D.O., M.M.M. on 04/28/2018 1:32 PM
[2018-04-28 13:47] LABS: BASOPHILS # (AUTO) 0.1 (0.0-0.1); BASOPHILS % 0.5 % (0.0-1.0); EOSINOPHILS # (AUTO) 0.1 (0.0-0.4); LYMPHOCYTES # (AUTO) 1.8 (1.0-3.2); LYMPHOCYTES % 18.2 % (18.0-39.1); MEAN CORPUSCULAR HEMOGLOBIN 33.2 pg (28-32); MEAN CORPUSCULAR HGB CONC 31.4 g/dL (31-35); MEAN CORPUSCULAR VOLUME 105.5 fL (81-99); MONOCYTES # (AUTO) 0.6 (0.2-0.8); MONOCYTES % 6.1 % (4.4-11.3); NEUTROPHILS # (AUTO) 7.3 (2.1-6.9); NEUTROPHILS % 73.8 % (38.7-80.0); PLATELET COUNT 217 x10e3/uL (140-360); RED BLOOD COUNT 1.99 x10e6/uL (3.6-5.1); RED CELL DISTRIBUTION WIDTH 12.6 % (11.7-14.4)
[2018-04-28] MEDS ORDERED: AMLODIPINE BESYL5 MG PO (13:51)
[2018-04-28] MEDS ORDERED: METOPROLOL SUCC25 MG (13:51)
[2018-04-28] MEDS ORDERED: METFORMIN HCL500 M2 PO (13:51)
[2018-04-28] MEDS ORDERED: LEVOTHYROXINE75 MCG PO (13:51)
[2018-04-28] MEDS ORDERED: ATORVASTATIN CA10 MG PO (13:51)
[2018-04-28] MEDS ORDERED: PIOGLITAZONE HC45 MG PO (13:51)
[2018-04-28 13:53] LABS: HEMOGLOBIN 6.6 g/dL (12.0-16.0)
[2018-04-28] MEDS ORDERED: SODIUM CHLORIDE 0.9% 250ML 250 ML IV ONE (14:00)
[2018-04-28] MEDS ORDERED: PANTOPRAZOLE 40 MG 10ML VIAL IV ONE (14:00)
[2018-04-28] MEDS: D5.45%NS/KCL 20MEQ 1,000 ML IV SCH ×2 (14:01→22:01)
[2018-04-28 14:03] LABS: INR 1.04; PROTHROMBIN TIME 14.5 seconds (11.9-14.5)
[2018-04-28 14:04] LABS: PARTIAL THROMBOPLASTIN TIME 25.2 seconds (23.8-35.5)
[2018-04-28 14:12] LABS: ALBUMIN 2.9 g/dL (3.5-5.0); ALBUMIN/GLOBULIN RATIO 0.8 (0.8-2.0); ANION GAP 17.9 mmol/L (8-16); CREATININE, SERUM 1.46 mg/dL (0.57-1.11); POTASSIUM 4.9 mmol/L (3.5-5.1)
[2018-04-28] MEDS ORDERED: OCTREOTIDE ACETATE 0.05 MG/ML AMP IV ONE (14:15)
[2018-04-28] MEDS ORDERED: OCTREOTIDE ACETATE 500 MCG in SODIUM CHLORIDE 0.9% 500ML 1 ML IV SCH (14:15)
[2018-04-28 14:20] LABS: CREATINE KINASE MB 1.8 ng/mL (0-5.0)
[2018-04-28 14:34] LABS: COLOR,URINE YELLOW (YELLOW)
[2018-04-28 14:35] LABS: BILIRUBIN,URINE NEGATIVE (NEGATIVE); KETONES,URINE TRACE (NEGATIVE); LEUKOCYTE ESTERASE ,URINE NEGATIVE (NEGATIVE); NITRITE,URINE NEGATIVE (NEGATIVE); PROTEIN,URINE DIPSTICK TRACE (NEGATIVE); URINE UROBILINOGEN 0.2 mg/dL (0.2 - 1)
[2018-04-28 14:37] LABS: CLARITY,URINE CLEAR (CLEAR)
[2018-04-28] MEDS ORDERED: DEXTROSE 50% SYRINGE 50 ML IV PRN ×2 (14:45→22:45)
[2018-04-28] MEDS ORDERED: OCTREOTIDE ACETATE 500 MCG in SODIUM CHLORIDE 0.9% 250ML 249 ML SQ SCH (14:45)
[2018-04-28 14:52] LABS: EPITHELIAL CELLS,URINE FEW /LPF; RBC,URINE 0-5 /HPF (0-5)
[2018-04-28] MEDS: OCTREOTIDE ACETATE 500 MCG in SODIUM CHLORIDE 0.9% 250ML 249 ML IV SCH (15:11)
[2018-04-28] MEDS: PANTOPRAZOL 40MG/SOD CHL 0.9% 50 ML IV SCH (15:28)
[2018-04-28] MEDS: INSULIN REGULAR, HUMAN 100 UNIT/1 ML 3ML VIAL SQ SCH ×2 (16:30→21:00)
[2018-04-28] MEDS ORDERED: ONDANSETRON HCL INJ 2MG/ML 2ML 2 MG/ML VIAL IV PRN (16:30)
[2018-04-28] MEDS ORDERED: METOCLOPRAMIDE HCL 10 MG/2ML VIAL ONE (16:41)
--- NOTE | 2018-04-28 16:45 | NUR ---
1ST UNIT BLOOD TRANSFUSING AT THIS TIME. SEE FLOW SHEET FOR DETAILS
[2018-04-28] MEDS: METOCLOPRAMIDE HCL 10 MG/2ML VIAL IV PRN (16:49)
--- NOTE | 2018-04-28 18:00 | NUR ---
Received patient from ER blood transfusion infusing, to right forearm IV site # 20 gauge, Octreotide drip infusing to IV site left forearm, #18 gauge. she is alert and oriented x3, assisted patient to bathroom, patient had a bowel movement dark stool. No redness, no open areas to buttocks, skin is intact. Oriented to room and use of call light verbalized understanding to call when needing assistance.
[2018-04-28] MEDS ORDERED: SODIUM CHLORIDE 0.9% 250ML 250 ML ONE (19:56)
[2018-04-28 20:00] VITALS: BP 165/57
[2018-04-28] MEDS ORDERED: ATORVASTATIN 10 MG TAB PO SCH (21:00)
--- NOTE | 2018-04-28 21:55 | NUR ---
PT TOLERATED BLOOD TRANSFUSION WELL, RESTING WITH EYES CLOSED EASY TO AWAKEN.
[2018-04-28 22:34] LABS: HEMOGLOBIN 7.3 g/dL (12.0-16.0)
[2018-04-28 22:36] LABS: HEMATOCRIT 22.9 % (34.2-44.1)
[2018-04-28] MEDS ORDERED: FUROSEMIDE INJ 10 MG/ML 2 ML VIAL IV ONE (22:45)
[2018-04-29] VITALS (12 sets, daily range): BP systolic 114–156; BP diastolic 39–82
[2018-04-29] MEDS: PANTOPRAZOL 40MG/SOD CHL 0.9% 50 ML IV SCH ×3 (01:00→06:31)
[2018-04-29] MEDS: GABAPENTIN 300 MG CAP PO SCH ×2 (01:29→08:22)
[2018-04-29] MEDS: OCTREOTIDE ACETATE 500 MCG in SODIUM CHLORIDE 0.9% 250ML 249 ML IV SCH (01:30)
[2018-04-29] MEDS: METOCLOPRAMIDE HCL 10 MG/2ML VIAL IV PRN (01:31)
[2018-04-29] MEDS: ACETAMINOPHEN/CODEINE 300MG - 30MG TAB PO PRN ×3 (01:31→22:12)
--- NOTE | 2018-04-29 03:14 | NUR ---
RECEIVED REPORT FROM YANDEL MCCAULEY ON PT AT PT'S BEDSIDE, ONE UNIT OF PRBC'S INFUSING AT THIS TIME. PT'S FAMILY SPOUSE & DAUGHTER AT BEDSIDE. . TEACHING REGARDING ADMINISTRATION OF BLOOD AND WHAT TYPE'S OF REACTION SIGNS TO LOOK FOR. PT VERBALIZED UNDERSTAND.
--- NOTE | 2018-04-29 03:54 | NUR ---
BLOOD TRANSFUSION COMPLETED, FAMILY WENT HOME TO CATCH ON MUCH NEEDED REST. INFORMED PT USE CALL BPERIANAL CARE PROVIDED DUE TO INCONTINENT EPISO,
--- NOTE | 2018-04-29 05:00 | NUR ---
PT'S MONITOR STARTS BEEPING PT HEART RATE IS LOW, APPEARS TO BE BRADYCARDIA, PT SLEEPY, LETHARGIC, HOWEVER EASILY AROUSABLE.
[2018-04-29 05:47] LABS: BASOPHILS % 0.3 % (0.0-1.0); HEMOGLOBIN 7.3 g/dL (12.0-16.0); LYMPHOCYTES # (AUTO) 1.7 (1.0-3.2); LYMPHOCYTES % 14.2 % (18.0-39.1); MEAN CORPUSCULAR HEMOGLOBIN 31.7 pg (28-32); MEAN CORPUSCULAR HGB CONC 32.9 g/dL (31-35); MEAN CORPUSCULAR VOLUME 96.5 fL (81-99); MONOCYTES # (AUTO) 1.3 (0.2-0.8); MONOCYTES % 11.3 % (4.4-11.3); NEUTROPHILS # (AUTO) 8.7 (2.1-6.9); NEUTROPHILS % 73.5 % (38.7-80.0); PLATELET COUNT 164 x10e3/uL (140-360); RED CELL DISTRIBUTION WIDTH 15.6 % (11.7-14.4)
[2018-04-29 05:56] LABS: HEMATOCRIT 22.2 % (34.2-44.1)
[2018-04-29] MEDS: D5.45%NS/KCL 20MEQ 1,000 ML IV SCH (06:01)
[2018-04-29 06:04] LABS: ANION GAP 15.6 mmol/L (8-16); CALCIUM 8.4 mg/dL (8.4-10.2); CREATININE, SERUM 1.48 mg/dL (0.57-1.11); POTASSIUM 4.6 mmol/L (3.5-5.1)
[2018-04-29 06:29] LABS: FERRITIN 42.69 ng/mL (4.63-204.00)
--- NOTE | 2018-04-29 07:20 | NUR ---
CALLED DR. MONTEJO REGARDING PT'S HEART RATE DROPPING, CRITICAL LAB VALUE OF HGB 7.3/HCT 22.2, AND MEDICATION METOPROLOL BEING HELD LAST NIGHT. NEW ORDERS GIVEN TO HOLD NEURONTIN. EKG OBTAINED VAI PROTOCOL, PT ABLE TO ANSWER QUESTIONS, EASILY AROUSABLE TO VERBAL STIMULI, YANDEL LEE NURSE WAS STANDING NEXT TO THIS NURSE WHEN DR. MONTEJO WAS GIVING VERBAL ORDERS.
[2018-04-29] MEDS: INSULIN LISPRO 100 UNIT/1 ML 3ML VIAL SQ SCH ×4 (07:30→21:00)
[2018-04-29] MEDS: LEVOTHYROXINE SODIUM 75 MCG TAB PO SCH (07:30)
[2018-04-29] MEDS ORDERED: DIATRIZOATE MEGL/DIATRIZOA SOD 30 ML BTL PO ONE (08:05)
[2018-04-29] MEDS: AMLODIPINE BESYLATE 5 MG TAB PO SCH (08:24)
[2018-04-29] MEDS ORDERED: PANTOPRAZOLE 40 MG 10ML VIAL IV SCH (09:00)
[2018-04-29] MEDS ORDERED: PIOGLITAZONE HCL 45 MG TAB PO SCH (09:00)
[2018-04-29] MEDS ORDERED: METOPROLOL SUCCINATE 25 MG TAB XL PO SCH (09:00)
[2018-04-29] MEDS ORDERED: METFORMIN HCL 500 MG TAB CR PO SCH (09:00)
--- NOTE | 2018-04-29 09:57 | Diagnostic Imaging Report ---
EXAM: CT of the abdomen and pelvis WITHOUT contrast HISTORY: Abdominal pain, anemia, upper GI bleed, renal impairment COMPARISON: None available. TECHNIQUE: The abdomen and pelvis were scanned utilizing a multidetector helical scanner. Coronal and sagittal reformats are available. PROTOCOL: Routine IV CONTRAST: None, which limits sensitivity and specificity of evaluation of the soft tissues and vascular structures. ORAL CONTRAST: Dilute Gastrografin RADIATION DOSE: Total DLP: 565.74 mGy*cm Estimated effective dose: (DLP x 0.015 x size factor) Dose modulation, iterative reconstruction, and/or weight based adjustment of the mA/kV was utilized to reduce the radiation dose to as low as reasonably achievable. COMPLICATIONS: None FINDINGS: LOWER THORAX: Small low-density left pleural effusion with adjacent atelectasis. HEPATOBILIARY: No definite focal hepatic lesions. No biliary ductal dilatation. Metallic clips in the right upper quadrant of the abdomen are compatible with prior cholecystectomy. SPLEEN: No splenomegaly. Numerous punctate calcifications within the spleen. PANCREAS: No focal masses or ductal dilatation. Severe diffuse parenchymal atrophy. ADRENALS: No adrenal nodule. KIDNEYS/URETERS: The kidneys bilaterally appear small, 7.8 cm craniocaudal. Bilaterally punctate nonobstructing calcifications, small stones versus vascular calcifications. PELVIC ORGANS/BLADDER: The urinary bladder is distended. PERITONEUM / RETROPERITONEUM: No free air or fluid. GI TRACT: Radiopaque contrast material within the stomach, small bowel, and proximal colon. Postsurgical changes of the stomach. Prominent heterogeneous intraluminal debris versus clot within the stomach, intermixed with the radiopaque contrast. LYMPH NODES: No pathologically enlarged lymph nodes. VESSELS: Low density blood pool, compatible with anemia. Scattered atherosclerotic vascular calcifications, including the coronary arteries. BONES: Diffusely decreased mineralization of the osseous structures limits bone detail. Multilevel mild to severe degenerative changes throughout the visualized axial skeleton. SOFT TISSUES: Diffuse muscle atrophy. Superficial soft tissue edema. IMPRESSION: 1. Heterogeneous debris versus blood clot within the stomach along with postsurgical changes of the stomach. 2. Anemia. 3. Small left pleural effusion with adjacent atelectasis. 4. Diffuse osseous demineralization. 5. Coronary atherosclerosis. 6. A few punctate nonobstructing renal calculi versus intrarenal vascular calcifications. Signed by: Dr. Clayton Ambrocio D.O., M.M.M. on 04/29/2018 9:53 AM
--- NOTE | 2018-04-29 10:00 | NUR ---
spoke to er and had the attending physician changed to dr. owen.
[2018-04-29] MEDS ORDERED: FOLIC ACID 1 MG TAB PO ONE (10:30)
[2018-04-29] MEDS: CYANOCOBALAMIN INJ 1,000 MCG/ML VIAL IM SCH (10:34)
--- NOTE | 2018-04-29 12:26 | History and Physical ---
PRIMARY CARE PROVIDER: Dr. Kristi Fiore. CONSULTANTS 1. Dr. Junior Young. 2. Dr. Enrique Weems. CHIEF COMPLAINT: Symptomatic anemia and shortness of breath. HISTORY OF PRESENT ILLNESS: The patient is a pleasant 72-year-old female complaining of nausea and vomiting and abdominal cramps. Patient has the symptoms for the past few days. Came into the hospital, patient found to have significant anemia. Her hemoglobin and hematocrit was low 6.6 and 21.0. Patient apparently had multiple stents. Previously she was on Plavix and aspirin. The last stent is greater than [address] Junior Young. Patient antiplatelet platelet medication stopped and she did receive 2 units of blood transfusion. Patient had tachy-geovanny syndrome. Her heart rate went up to as high as in the 100 and then came down to the 40. Patient was on beta tessie at home. She is otherwise stable. She is in the [facility] for further workup. PAST MEDICAL HISTORY 1. Coronary disease with previous stents. 2. Chronic kidney disease. 3. Hypertension. 4. Hypothyroidism. 5. Diabetes type 2. 6. Dyslipidemia. 7. Morbid obesity. PAST SURGICAL HISTORY 1. Abdominal surgery including cholecystectomy. 2. Hysterectomy. 3. Skin cancer removal. SOCIAL HISTORY: Patient lives with her spouse. She does not smoke or use alcohol. No recreational drug use. ALLERGIES: NO KNOWN ALLERGY. HOME MEDICATIONS 1. Norvasc. 2. Aspirin. 3. Lipitor. 4. Plavix. 5. Gabapentin. 6. Levothyroxine. 7. Metformin. 8. Metoprolol. 9. Actos. 10. Coleman-3 fatty acid. PHYSICAL EXAMINATION GENERAL: The patient seems comfortable. She is not in any distress. She is communicating. She had no focal weakness to complain of. VITAL SIGNS: Temperature is 99.5, blood pressure 136/48, pulse rate 40 to 98, respirations 18 to 20. HEENT: Normocephalic and atraumatic. NECK: Supple grossly. PULMONARY: Clear. CARDIOVASCULAR: Geovanny-tachy episode. ABDOMEN: Obese. Midline scar. Non-distention, nontender. EXTREMITIES: No cyanosis. There is multiple petechial rash in the lower extremities (most likely from Plavix and aspirin.) NEUROLOGIC: Exam no focal deficit. Awake and alert x3. LABORATORY: Sodium is 141, potassium 4.9, chloride 107, bicarb 21, BUN is 52, creatinine 1.46, glucose 192. WBC is 9.8, hemoglobin 6.6. Hematocrit 21, platelets is 217. Urinalysis trace protein, trace ketone. Serology is influenza A and B negative. AST 11, ALT 10, alkaline phosphatase 45, troponin are negative. Albumin is 2.9, globulin 3.6, vitamin B12 is 124, Roche is 13, iron is 161. Total iron binding capacity 301 and iron saturation is 53, transferrin is 250. IMPRESSION 1. Pernicious anemia with low B12 level. 2. Chronic kidney disease. 3. Tachy-geovanny syndrome. 4. Coronary disease previously with stent greater than 6 months on Plavix and aspirin. 5. Morbid obesity with multiple chronic medical problem. PLAN: Since the patient anemia is most likely a combination of pernicious anemia, B12 deficiency and chronic kidney disease, we will give the patient B12 injection. She will need to continue with further workup, however, for blood loss anemia. At the same time, she did receive 2 units of blood. With her tachy-geovanny she will need to see Dr. Junior Young, but in the meantime, we will discontinue her beta tessie and obtain echocardiogram. We will check for stool for occult blood. Dr. Enrique Weems has seen the patient. We will continue to monitor closely. Stop IV fluids. No need for potassium replacement and continue with monitor her blood count. Insulin sliding scale coverage. Discontinue metformin due to chronic kidney disease and discontinue Actos due to coronary disease. We will adjust the patient's home medications and go from there. Job#: [id number] STY cc:DR. KRISTI FIORE
--- NOTE | 2018-04-29 16:35 | NUR ---
Dr. Basilia Young in to do consult on patient, I received orders to notify Chan Weems to hold EGD for tomorrow, because patient requires pacemaker insertion.
--- NOTE | 2018-04-29 17:16 | Consultation ---
DATE OF CONSULTATION: April 29, 2018 CARDIOLOGY CONSULTATION NOTE INDICATION: Bradycardia. HISTORY OF PRESENT ILLNESS: Ms. Mendez is a 72-year-old female with past history of stent, comes in with GI bleeding. She has received blood transfusion. She was found to have marked bradycardia. She is asymptomatic, but does feel weak and lethargic. She has had an old left bundle branch block. PAST MEDICAL HISTORY: As listed above. SOCIAL HISTORY: No smoking or drinking. She is accompanied by her . ALLERGIES: NO KNOWN DRUG ALLERGIES. REVIEW OF SYSTEMS: Negative except as dictated in the history of present illness. PHYSICAL EXAMINATION VITALS: Temperature 99.3, heart rate 40, blood pressure 132/56. CARDIOVASCULAR: Irregular rhythm, systolic murmur. LUNGS: Clear to auscultation bilaterally. ABDOMEN: Soft, mildly distended, and tender. LABORATORY DATA: Reviewed. EKG shows marked second-degree AV block. Hemoglobin is 7.3. Serum creatinine is 1.5. TSH is normal. ASSESSMENT: Symptomatic bradycardia with heart block and left bundle branch block. RECOMMENDATIONS: Continue on telemetry. The patient is asymptomatic. Electrophysiology consult for permanent pacemaker placement. Beta tessie should be held. It is okay to hold her dual-antiplatelet therapy given her GI bleed and her stents are more than 6 months of age. I thank, Dr. Ellis for this consultation. Job#: [id number] HAILY
[2018-04-29] MEDS: SODIUM CHLORIDE 0.9% 1000ML 1,000 ML IV SCH ×2 (20:00→22:00)
--- NOTE | 2018-04-29 20:12 | NUR ---
Spoke with Dr. Young and he ordered a Left Heart Catheterization and temporary pacemaker placement. Called Dr. Eldridge to clarify the procedure for tomorrow morning since Hannah was wanting to come in at [address] Eldridge will clarify with Dr. Young on when the procedure is taking place.
[2018-04-29] MEDS ORDERED: MIDAZOLAM HCL 2 MG/2 ML VIAL ONE (20:37)
[2018-04-29] MEDS ORDERED: IOPAMIDOL 370 MG/ML 200 ML INFUS..BTL INJ ONE (20:37)
[2018-04-29] MEDS ORDERED: HEPARIN SOD/SOD CHLORIDE 2,000 ML ONE (20:37)
[2018-04-29] MEDS ORDERED: FENTANYL CITRATE/PF 100MCG/2 ML INJ ONE (20:37)
[2018-04-29] MEDS ORDERED: SODIUM CHLORIDE 0.9% 1000ML 1,000 ML ONE (20:38)
[2018-04-29] MEDS ORDERED: LIDOCAINE HCL 1% LOCAL INJ 20 ML VIAL ONE (20:38)
--- NOTE | 2018-04-29 20:59 | NUR ---
INTERVENTIONAL PAIN PHYSICIAN TEAM HAS SHOWN UP AND GETTING THE PATIENT READY TO GO TO THE PROCEDURE.
--- NOTE | 2018-04-29 21:03 | NUR ---
NOTIFIED THE FAMILY OF THE PROCEDURE. THE PATIENT WAS TAKEN TO [employer] TRA[employer] AND ACCESSORIES SALESPERSON
--- NOTE | 2018-04-29 21:48 | NUR ---
REPORT FROM DESIGN ENGINEER NURSE.
--- NOTE | 2018-04-29 22:00 | NUR ---
PATIENT ARRIVED ON THE UNIT IN STABLE CONDITION POST HEART CATH.
[2018-04-29] MEDS ORDERED: SODIUM CHLORIDE 0.9% 500ML 500 ML ONE (22:01)
--- NOTE | 2018-04-29 23:29 | Operative Report ---
DATE OF PROCEDURE: April 29, 2018 INDICATIONS 1. Unstable angina. 2. Complete heart block. 3. Cardiogenic shock. PROCEDURES PERFORMED 1. Left heart catheterization, selective coronary angiography. 2. Placement of temporary transvenous pacemaker. 3. Placement of 7-Brazilian central venous catheter. 4. Placement of arterial line. COMPLICATIONS: None. RECOMMENDATIONS: Biventricular pacemaker placement in the morning, continued medical therapy for coronary artery disease. Access obtained in the right femoral artery. A 4-Brazilian sheath was placed. Access obtained in the right femoral vein. A 7-Brazilian sheath was placed. A 6-Brazilian temporary venous pacemaker was advanced into the right ventricular apex and pacing initiated with excellent capture and threshold. Coronary angiography demonstrated mild disease in the left main. The left anterior descending with bifurcating stents extending into the diagonal artery is widely patent. Circumflex, right coronary artery and remaining left anterior descending artery had moderate 30% to 50% stenosis. No intervention was deemed necessary. Central line was used for venous access. Arterial line was transduced for measurement of invasive blood pressure due to hypotension and cardiogenic shock. The patient's sheath was secured in place. The patient was transferred to the ICU in stable condition. Job#: [id number]
[2018-04-30] VITALS (26 sets, daily range): BP systolic 110–185; BP diastolic 45–72
[2018-04-30] MEDS: SODIUM CHLORIDE 0.9% 1000ML 1,000 ML IV SCH (04:00)
[2018-04-30 04:54] LABS: BASOPHILS % 0.3 % (0.0-1.0); EOSINOPHILS # (AUTO) 0.1 (0.0-0.4); EOSINOPHILS % 0.5 % (0.0-6.0); LYMPHOCYTES # (AUTO) 1.9 (1.0-3.2); LYMPHOCYTES % 16.2 % (18.0-39.1); MEAN CORPUSCULAR HEMOGLOBIN 33.8 pg (28-32); MEAN CORPUSCULAR HGB CONC 34.9 g/dL (31-35); MEAN CORPUSCULAR VOLUME 96.9 fL (81-99); MONOCYTES # (AUTO) 1.6 (0.2-0.8); MONOCYTES % 13.7 % (4.4-11.3); NEUTROPHILS # (AUTO) 7.9 (2.1-6.9); NEUTROPHILS % 68.1 % (38.7-80.0); PLATELET COUNT 168 x10e3/uL (140-360); RED BLOOD COUNT 1.95 x10e6/uL (3.6-5.1); RED CELL DISTRIBUTION WIDTH 15.7 % (11.7-14.4)
[2018-04-30 05:13] LABS: ANION GAP 11.9 mmol/L (8-16); CALCIUM 8.5 mg/dL (8.4-10.2); CREATININE, SERUM 1.46 mg/dL (0.57-1.11); POTASSIUM 3.9 mmol/L (3.5-5.1)
[2018-04-30 05:50] LABS: HEMATOCRIT 18.9 % (34.2-44.1)
[2018-04-30 05:57] LABS: HEMOGLOBIN 6.6 g/dL (12.0-16.0)
--- NOTE | 2018-04-30 06:06 | NUR ---
PAGED DR. Chan RODRIGUEZ REGARDING THE H&H.
--- NOTE | 2018-04-30 06:13 | NUR ---
DR.M. RODRIGUEZ ORDERED 2 UNITS OF PRBC TO BE TRANSFUSED
[2018-04-30] MEDS ORDERED: SODIUM CHLORIDE 0.9% 250ML 250 ML IV ONE (06:15)
[2018-04-30] MEDS ORDERED: MIDAZOLAM HCL 2 MG/2 ML VIAL ONE (06:58)
[2018-04-30] MEDS ORDERED: BACITRACIN 50,000 UNIT VIAL ONE (06:59)
[2018-04-30] MEDS ORDERED: FENTANYL CITRATE/PF 100MCG/2 ML INJ ONE (06:59)
--- NOTE | 2018-04-30 07:00 | NUR ---
BEDSIDE REPORT RECVD. ASSESSMENT COMPLETED AND RECORDED. VSS AND RECORDED. PT WITH TEMP PACEMAKER IN GROIN, PULSES PRESENT AND PALP. DENIES PAIN AT THIS TIME. AT BEDSIDE. DISCUSSED POC THEY VERBALIZE UNDERSTANDING AND CONSENT OF CURRENT CARE
[2018-04-30] MEDS ORDERED: SODIUM CHLORIDE 0.9% 500ML 500 ML ONE ×2 (07:03→07:05)
[2018-04-30] MEDS ORDERED: SODIUM CHLORIDE 0.9% 1000ML 0 ML ONE (07:04)
--- NOTE | 2018-04-30 07:20 | NUR ---
PT TAKEN TO OR
[2018-04-30] MEDS ORDERED: LIDOCAINE HCL 1% LOCAL INJ 20 ML VIAL ONE (07:30)
[2018-04-30] MEDS: INSULIN LISPRO 100 UNIT/1 ML 3ML VIAL SQ SCH ×2 (07:30→21:00)
[2018-04-30] MEDS ORDERED: HEPARIN SOD/SOD CHLORIDE 0 ML ONE (07:30)
[2018-04-30] MEDS ORDERED: SODIUM CHLORIDE 0.9% 250ML 250 ML ONE ×2 (07:32→10:18)
--- NOTE | 2018-04-30 08:09 | NUR ---
DR MONTEJO MAKING ROUNDS, PT IN OR, ORDERS RECVD AND TO BE COMPLETED.
[2018-04-30] MEDS ORDERED: FUROSEMIDE INJ 10 MG/ML 2 ML VIAL IV ONE ×2 (08:30→16:15)
--- NOTE | 2018-04-30 08:47 | Operative Report ---
DATE OF PROCEDURE: 04/30/2018. PREOPERATIVE DIAGNOSES 1. High-degree atrioventricular block. 2. Symptomatic bradycardia. 3. Left bundle branch block. PROCEDURE PERFORMED: Temporary screw-in permanent pacemaker lead placement and removal of the groin pacemaker. Patient was brought into the EP lab in fasting state. Right neck was prepped and draped in a sterile fashion. Conscious sedation with 12 of Versed and 25 of fentanyl was administered for 20 minutes while O2 sat and blood pressure was being monitored by me and the circulating nurse. One guidewire was inserted into the right internal jugular vein using modified Seldinger technique. No complications. Pacer lead advanced to the RV apex and fixated in place with excellent numbers. Sensing 5, threshold less than 1. Pacemaker wire was sutured to the skin and connected to an externalized permanent pacemaker, which was later stitched to the skin. At this point, the groin temporary pacemaker was removed. The sheath was removed, and manual compression was applied. CONCLUSION: Temporary permanent pacemaker lead placement through internal jugular and removal of the groin pacemaker. Moderate sedation. PLAN: For biventricular pacemaker placement when hemoglobin is stabilized. Job#: [id number] JAM ENGLE
--- NOTE | 2018-04-30 08:57 | Consultation ---
DATE OF CONSULTATION: April 29, 2018 REASON FOR CONSULTATION: Severe symptomatic bradycardia. Ms. Mendez is a 72-year-old woman with a past medical history of coronary artery disease, now presenting with severe GI bleed. She has had left bundle branch block and complex stent to LAD and diagonal. Yesterday, she became severely bradycardic. Code almost was called, but she recovered. I had to start her on dopamine and transfer her to the unit. Also, she got a urgent right heart cath yesterday to check for the stents, which were patent. PAST MEDICAL HISTORY: Coronary artery disease, left bundle branch block, AV block, GI bleed. SOCIAL HISTORY: No drugs or smoking. FAMILY HISTORY: Negative for atrial fibrillation. REVIEW OF SYSTEMS: Other than above was negative for fever, chills, loss of vision, blurry vision, ear pain or discharge, numbness. Positive for chest pain and palpitations. Negative for cough, sputum, nausea, vomiting, dysuria, frequency, rash, or bruise. Positive for bleeding. Negative for clots. Negative for anxiety or depression. PHYSICAL EXAMINATION VITALS: Blood pressure 160/70, heart rate is 50 beats per minute. GENERAL: Patient is laying in bed in no apparent distress. NECK: Has no lymphadenopathy. Thyroid exam is normal. CARDIOVASCULAR: S1 and S2. Bradycardic. LUNGS: Clear bilaterally. ABDOMEN: Soft. EXTREMITIES: Warm and dry. NEURO: Nonfocal. SKIN: Has no new rash. No anxiety or depression. EKG I reviewed which show left bundle branch block and occasional PACs, bradycardia, frequent pauses. Echo shows an EF of 35% to 40%. Cath showed patent stents. ASSESSMENT AND PLAN: A 72-year-old woman with gastrointestinal bleeding and also severe high-grade atrioventricular block due to left bundle branch block and pauses and non-conducted beats. She is a candidate for biventricular pacemaker. However, currently hemoglobin is dropping and now it is 6.6. The safest approach is to do a temporary screw-in pacemaker, which is more secure than the groin pacemaker. Once the hemoglobin is stabilized and gastroenterology workup done in the next day or 2, we will plan for left-sided conventional permanent biventricular pacemaker. Thank you very much for the consultation. Job#: [id number] MN
[2018-04-30] MEDS: CYANOCOBALAMIN INJ 1,000 MCG/ML VIAL IM SCH (08:59)
[2018-04-30] MEDS ORDERED: PANTOPRAZOLE 40 MG 10ML VIAL IV SCH (09:00)
[2018-04-30] MEDS: ACETAMINOPHEN/CODEINE 300MG - 30MG TAB PO PRN ×2 (09:00→20:14)
[2018-04-30] MEDS: FOLIC ACID 1 MG TAB PO SCH (09:00)
[2018-04-30] MEDS: AMLODIPINE BESYLATE 5 MG TAB PO SCH (09:00)
[2018-04-30] MEDS: PANTOPRAZOLE 40 MG 10ML VIAL IV SCH ×2 (09:09→21:21)
[2018-04-30 10:15] LABS: EOSINOPHILS % (MANUAL) 2 % (0-7); LYMPHOCYTES % (MANUAL) 18 % (19-48); MONOCYTES % (MANUAL) 14 % (3.4-9.0); NEUTROPHILS % (MANUAL) 66 % (40-74)
[2018-04-30 10:18] LABS: HOWELL-JOLLY BODIES FEW
[2018-04-30 10:31] LABS: ANISOCYTOSIS SLIGHT; HYPOCHROMASIA MODERATE; PLATELET ESTIMATE ADEQUATE; PLATELET MORPHOLOGY COMMENT FEW LARGE; RBC MORPHOLOGY COMMENT NORMAL
[2018-04-30] MEDS: PIPER-TAZ 3.375 GM 50 ML IV SCH ×3 (14:38→21:21)
[2018-04-30] MEDS: NIFEDIPINE CR 30 MG TAB PO SCH (16:19)
[2018-04-30] MEDS ORDERED: HYDRALAZINE HCL 20 MG/ML VIAL IV PRN (22:30)
--- NOTE | 2018-04-30 23:44 | Progress Note ---
DATE: April 30, 2018 CARDIOLOGY PROGRESS NOTE SUBJECTIVE: Had screw in temporary pacemaker lead placed this morning by EP, awaiting a permanent pacemaker placement. Pending resolution of GI bleeding and severe anemia. OBJECTIVE: VITAL SIGNS: Temperature 99.5, pulse 64, respiratory rate 18, blood pressure 168/57, satting 96% on 3 liters nasal cannula. GENERAL: Obese white female, in no acute distress. CARDIOVASCULAR: Regular rate and rhythm. No murmurs, rubs, or gallops. LUNGS: Clear to auscultation. ABDOMEN: Soft, mildly distended and mildly tender. NEURO AND PSYCH: Alert and oriented to person, place, and time. Normal affect. CARDIOVASCULAR MEDICATIONS: Reviewed. LABORATORY DATA: Reviewed. ASSESSMENT AND PLAN: 1. Symptomatic bradycardia. 2. Advanced heart block and left bundle-branch block. RECOMMENDATIONS: Continue to monitor on telemetry. Will await her GI bleeding to resolve and hemoglobin to improve prior to placement of biventricular pacemaker to be done by EP. Patient will be low risk for perioperative cardiovascular events in case of any GI procedures that may be required. Thank you for this consult. Will continue to follow. Job#: [id number]
[2018-05-01] VITALS (24 sets, daily range): BP systolic 87–157; BP diastolic 41–95
[2018-05-01] MEDS: ACETAMINOPHEN/CODEINE 300MG - 30MG TAB PO PRN ×4 (00:24→18:15)
[2018-05-01] MEDS ORDERED: ACETAMINOPHEN/CODEINE 300MG - 30MG TAB PO ONE (00:45)
[2018-05-01] MEDS: PIPER-TAZ 3.375 GM 50 ML IV SCH ×4 (02:40→20:41)
[2018-05-01 04:46] LABS: BASOPHILS # (AUTO) 0.1 (0.0-0.1); BASOPHILS % 0.4 % (0.0-1.0); EOSINOPHILS # (AUTO) 0.3 (0.0-0.4); EOSINOPHILS % 2.4 % (0.0-6.0); HEMATOCRIT 25.5 % (34.2-44.1); HEMOGLOBIN 8.6 g/dL (12.0-16.0); LYMPHOCYTES # (AUTO) 1.8 (1.0-3.2); LYMPHOCYTES % 14.6 % (18.0-39.1); MEAN CORPUSCULAR HEMOGLOBIN 31.7 pg (28-32); MEAN CORPUSCULAR HGB CONC 33.7 g/dL (31-35); MEAN CORPUSCULAR VOLUME 94.1 fL (81-99); MONOCYTES # (AUTO) 1.6 (0.2-0.8); MONOCYTES % 12.8 % (4.4-11.3); NEUTROPHILS # (AUTO) 8.4 (2.1-6.9); NEUTROPHILS % 68.5 % (38.7-80.0); PLATELET COUNT 149 x10e3/uL (140-360); RED BLOOD COUNT 2.71 x10e6/uL (3.6-5.1); RED CELL DISTRIBUTION WIDTH 15.9 % (11.7-14.4)
[2018-05-01 05:04] LABS: ANION GAP 11.1 mmol/L (8-16); CALCIUM 8.2 mg/dL (8.4-10.2); CREATININE, SERUM 1.41 mg/dL (0.57-1.11)
[2018-05-01 05:06] LABS: POTASSIUM 3.1 mmol/L (3.5-5.1)
[2018-05-01] MEDS ORDERED: POTASSIUM CHLORIDE 20 MEQ TAB CR PO STA (06:30)
[2018-05-01] MEDS: LEVOTHYROXINE SODIUM 75 MCG TAB PO SCH ×2 (06:52→06:54)
--- NOTE | 2018-05-01 07:07 | NUR ---
Dr. Ellis notified of potassium level of 3.1 New orders received. INformed oncoming shift of lab results and orders to be executed.
[2018-05-01 07:17] LABS: EOSINOPHILS % (MANUAL) 3 % (0-7); LYMPHOCYTES % (MANUAL) 8 % (19-48); MONOCYTES % (MANUAL) 6 % (3.4-9.0); NEUTROPHILS % (MANUAL) 83 % (40-74); PLATELET ESTIMATE SLIGHTLY DECREASED
[2018-05-01 07:18] LABS: ANISOCYTOSIS SLIGHT; HYPOCHROMASIA SLIGHT; PLATELET MORPHOLOGY COMMENT NORMAL
[2018-05-01 07:19] LABS: RBC MORPHOLOGY COMMENT NORMAL
[2018-05-01] MEDS: INSULIN LISPRO 100 UNIT/1 ML 3ML VIAL SQ SCH ×4 (07:30→21:35)
[2018-05-01] MEDS ORDERED: POTASSIUM CHLORIDE 20 MEQ TAB CR PO ONE (08:00)
--- NOTE | 2018-05-01 08:05 | NUR ---
DR. LARA RETURNED PAGE AND GAVE TELEPHONE ORDER FOR CARDIAC CLEARANCE FOR PATIENT TO GO FOR EGD PROCEDURE TODAY.
[2018-05-01] MEDS: CYANOCOBALAMIN INJ 1,000 MCG/ML VIAL IM SCH (09:00)
[2018-05-01] MEDS: PANTOPRAZOLE 40 MG 10ML VIAL IV SCH ×2 (09:09→20:41)
[2018-05-01] MEDS: FOLIC ACID 1 MG TAB PO SCH (09:09)
--- NOTE | 2018-05-01 09:45 | NUR ---
DR. RIOS AND ASSOCIATE HERE TO SEE PATIENT AND HE ALSO SPOKE WITH .
[2018-05-01] MEDS ORDERED: SODIUM CHLORIDE 0.9% 1000ML 1,000 ML ONE (11:54)
--- NOTE | 2018-05-01 14:05 | NUR ---
TAKEN TO OR BY 2 OR TEAM MEMBERS. PATIENT'S V/S ARE STABLE AND SHE DENIES ANY PAIN OR DISCOMFORT. RESPIRATIONS ARE EVEN AND UNLABORED. 24 HOUR SUMMARY REPORT SENT WITH PATIENT TO OR ALONG WITH PRE-OP CHECKLIST. DAUGHTER AT BEDSIDE AND CALLING HER FATHER TO INFORM HIM OF PATIENT NOW GOING TO OR FOR EGD.
--- NOTE | 2018-05-01 15:35 | NUR ---
Sleeve Sewer to bedside to discuss plan of care with patient/family. CM/SW role and care transitions discussed. Anticipated discharge plan discussed along with duration of care. CM/SW discussed patients right to make decisions in care. CM/SW work hours given. Patient lives: with her Rafy Admit/Transfer: thru ED POA/Emergency contact: Rafy Mendez [phone] Current/Previous Home Health: none at this time. states she used to have home health but didn't like it. PCP/Follow-up Care: Dr. Lees; educated pt about making follow up appointments within 7 days of discharge Current/Previous DME: has walker and wheelchair at home, but does not use them Other Services: none Employment Status: retired Areas of Concerns: none at this time Referral Needs: may need home health Education Needs: medical management IMM/MUKHERJEE given and signed (if applicable): none at this time Goal for discharge: home; will provide transportation CM/SW left business card at the bedside with contact information. Name and number was also written on the patients whiteboard. Patient verbalized understanding of discussion. CM will follow-up with ongoing discharge and transition of care needs.
--- NOTE | 2018-05-01 15:48 | Operative Report ---
DATE OF PROCEDURE: May 01, 2018 REFERRING PHYSICIAN: Dr. Janelle Montejo PROCEDURE PERFORMED: Esophagogastroduodenoscopy with biopsies. INDICATIONS FOR EGD: Hematemesis. MEDICATION: Patient was done under MAC. Please see anesthesiologist's note. PROCEDURE: With the patient in the left lateral decubitus position, the flexible fiberoptic Olympus gastroscope was introduced into the esophagus under direct visualization without any difficulty. There was some patchy erythema noted in the distal esophagus. The GE junction was ulcerated. There was no active bleeding. The scope was then advanced with ease into the stomach, and it appears that the patient has had a vertical as well as a horizontal gastroplasty with a gastrogastrostomy in the vertical gastroplasty, and the gastrogastrostomy site was ulcerated. The horizontal gastroplasty was noted at approximately 10 cm distal to the GE junction. That was traversed with gentle persistent pressure with the scope. Mucosa overlying the distal body and antrum revealed some patchy erythema and moderate edema, and biopsies were obtained and sent to stain for H. pylori. Pylorus was of normal contour and shape. It was intubated with ease, and the scope was advanced all the way to the 2nd portion of the duodenum. The scope was then withdrawn slowly. Mucosa overlying the proximal 2nd portion as well as the duodenal bulb appeared to be within normal limits. The scope was then withdrawn above the horizontal gastroplasty and retroflexed. Mucosa overlying the fundus and the cardia appeared to be within normal limits. The scope was then straightened out. It was subsequently withdrawn. Patient tolerated the procedure well. IMPRESSION 1. Distal esophagitis. 2. Ulcerated gastroesophageal junction. 3. Vertical gastroplasty with gastrogastrostomy site ulcerated. 4. Transverse gastroplasty noted at approximately 10 cm distal to the gastroesophageal junction. 5. Gastritis, biopsied. Biopsies sent to stain for H. pylori. PLAN: Follow up histology. Initiate full liquid diet. Add Carafate 1 gram p.o. a.c. t.i.d. and nightly. Continue PPI therapy. Job#: [id number] cc:JANELLE MONTEJO MD
--- NOTE | 2018-05-01 16:10 | NUR ---
PATIENT RETURNED FROM EGD PROCEDURE VIA HER OWN BED AND TOLERATED PROCEDURE. DENIES ANY PAIN OR DISCOMFORT. RESPIRATIONS ARE EVEN AND UNLABORED. V/S ARE STABLE.
[2018-05-01] MEDS: SUCRALFATE 1 GM/10 ML SUSP NG SCH ×2 (16:30→20:41)
--- NOTE | 2018-05-01 16:40 | NUR ---
WOUND CARE CONSULTATION - INITIAL EVALUATION Patient admitted for Nausea & Vomiting Blood, ABD Cramping. Patient since has undergone EGD with Biopsy on 05/01/18, Removal of Pacemaker and placement of temporary external pacemaker 04/28/18. WBC12.3 Hgb8.6 Hct25.5 Neut%8.4 [id number] HbA1C5.4 WC Consulted for Sacral Wound Evaluation. - Patient in bed calm and in good spirits. - Patient on Bed fuentes at time of visit. Assisted with bedpan and noticed clear yellow urine. - No Rash identified. - Noted wound to sacrum. 0.8x0.3x0.2cm linear. - Patient states that wound has been there for past six months. States to be using cream that was prescribed but is not going away. Also states she had a fall this past year and was previously diagnosed with fractured tail bone. Area painful at times. - Periwound has pink healthy scar tissue. Possibly shearing forces not allowing wound to fully close. - Patient is eager to get out of bed. - Able to turn self - Waldemar Score 18 - Alternating Air Mattress in place. IMPRESSION: Sacral- Non-Healing Stage II Pressure Ulcer- Shear Friction Wound- Present on Admission RECOMMENDATION: Sacrum - Stage II - Pressure Ulcer - Shear Friction- Present on Admission. - Cleanse wound with NS and 4x4 gauze then pat dry thoroughly. - Apply Silver Alginate( Maxsorb Ag+) and cover with Allevyn Foam Sacrum Daily. - Continue Alternating Pressure Air Mattress - Shear Friction Precautions. Thank you for consulting with Wound Care. Addendum: 05/01/18 at 1654 by Scottie Bernal RN Amended: Links added.
[2018-05-01] MEDS ORDERED: PROPOFOL IV EMULSION 10 MG/ML 20 ML VIAL ONE (17:37)
[2018-05-01] MEDS ORDERED: LIDOCAINE HCL 2% LOCAL INJ 5 ML SDV VIAL INJ ONE (17:37)
[2018-05-01] MEDS: SODIUM CHLORIDE 0.9% 1000ML 1,000 ML IV SCH (19:00)
--- NOTE | 2018-05-01 19:26 | Progress Note ---
DATE: May 01, 2018 CARDIOLOGY PROGRESS NOTE SUBJECTIVE: No major events overnight. Patient had EGD done today, shows esophagitis and gastritis and perhaps some erosion of her previously placed stomach stapling surgery many years ago. Patient denies any chest pain or shortness of breath. OBJECTIVE: VITAL SIGNS: Temperature afebrile, pulse 76, respiratory rate 16, blood pressure 113/46, satting 95% on 3 liters nasal cannula. GENERAL: Elderly white female, obese, in no acute distress. CARDIOVASCULAR: Regular rate and rhythm. No murmurs, rubs, or gallops. LUNGS: Clear to auscultation bilaterally. Diminished breath sounds at the bases. ABDOMEN: Obese, soft, nontender, nondistended. NEURO AND PSYCH: Alert and oriented to person, place, and time. Normal affect. CARDIOVASCULAR MEDICATIONS: Reviewed. LABORATORY DATA: Reviewed. ASSESSMENT AND PLAN: 1. Symptomatic bradycardia. 2. Advanced heart block and left bundle-branch block. 3. Status post screw in pacemaker lead with attached pacemaker generator that is taped to her neck. RECOMMENDATIONS: Patient's hemoglobin has now been stable for 24 hours. Will discuss with GI and plan for biventricular pacemaker placement either tomorrow or . Patient does need ischemic workup, however, given ongoing recent severe GI bleeding, will defer any ischemic evaluation until patient is cleared for dual antiplatelet therapy by gastroenterology. Thank you for this consult. Will continue to follow. Job#: [id number]
[2018-05-02] VITALS (22 sets, daily range): BP systolic 85–150; BP diastolic 47–67
[2018-05-02] MEDS: PIPER-TAZ 3.375 GM 50 ML IV SCH ×4 (03:17→21:03)
[2018-05-02 04:55] LABS: BASOPHILS # (AUTO) 0.1 (0.0-0.1); BASOPHILS % 0.5 % (0.0-1.0); EOSINOPHILS # (AUTO) 0.5 (0.0-0.4); EOSINOPHILS % 4.8 % (0.0-6.0); LYMPHOCYTES # (AUTO) 1.7 (1.0-3.2); LYMPHOCYTES % 17.4 % (18.0-39.1); MEAN CORPUSCULAR HEMOGLOBIN 31.7 pg (28-32); MEAN CORPUSCULAR HGB CONC 33.3 g/dL (31-35); MEAN CORPUSCULAR VOLUME 95.1 fL (81-99); MONOCYTES # (AUTO) 1.4 (0.2-0.8); MONOCYTES % 14.5 % (4.4-11.3); PLATELET COUNT 176 x10e3/uL (140-360); RED BLOOD COUNT 2.84 x10e6/uL (3.6-5.1); RED CELL DISTRIBUTION WIDTH 15.4 % (11.7-14.4)
[2018-05-02 05:12] LABS: ANION GAP 11.2 mmol/L (8-16); CREATININE, SERUM 1.32 mg/dL (0.57-1.11); POTASSIUM 3.2 mmol/L (3.5-5.1)
[2018-05-02 05:44] LABS: MAGNESIUM 1.6 MG/DL (1.3-2.1); PHOSPHORUS 2.3 MG/DL (2.3-4.7)
[2018-05-02] MEDS: INSULIN LISPRO 100 UNIT/1 ML 3ML VIAL SQ SCH ×4 (07:30→21:00)
[2018-05-02] MEDS: SUCRALFATE 1 GM/10 ML SUSP NG SCH ×4 (08:18→21:03)
[2018-05-02] MEDS: LEVOTHYROXINE SODIUM 75 MCG TAB PO SCH (08:18)
[2018-05-02] MEDS: NIFEDIPINE CR 30 MG TAB PO SCH (10:04)
[2018-05-02] MEDS: CYANOCOBALAMIN INJ 1,000 MCG/ML VIAL IM SCH (10:04)
[2018-05-02] MEDS: PANTOPRAZOLE 40 MG 10ML VIAL IV SCH ×2 (10:04→21:03)
[2018-05-02] MEDS: FOLIC ACID 1 MG TAB PO SCH (10:04)
[2018-05-02] MEDS ORDERED: POTASSIUM CHLORIDE 20 MEQ TAB CR PO ONE (10:55)
--- NOTE | 2018-05-02 17:10 | NUR ---
Visit made by the Spiritual Care Department Pastoral Visitor, Musa Parra. PV provided pastoral presence, prayer, hospitality, and supportive listening. Pastoral Visitor informed pt/family of the scope of [facility] and availability. DAVID CHAHAL Help Desk Support Specialist Spiritual Care Department O: [phone] Pager: [phone] ([phone] number calling from)
[2018-05-02] MEDS: SODIUM CHLORIDE 0.9% 1000ML 1,000 ML IV SCH (17:20)
--- NOTE | 2018-05-02 18:23 | Progress Note ---
DATE: May 02, 2018 CARDIOLOGY PROGRESS NOTE SUBJECTIVE: No major events overnight. OBJECTIVE VITAL SIGNS: Temperature 98.8, pulse 69, blood pressure 130/49, satting 98% on room air. GENERAL: Elderly white female, obese, no acute distress. CARDIOVASCULAR: Regular rate and rhythm. No murmurs, rubs or gallops. LUNGS: Clear to auscultation bilaterally. Diminished breath sounds at the bases. ABDOMEN: Obese, soft, nontender, nondistended. NEURO AND PSYCH: Alert and oriented to person, place and time. Normal affect. CARDIOVASCULAR MEDICATIONS: Reviewed. LABORATORY DATA: Reviewed. ASSESSMENT AND PLAN 1. Symptomatic bradycardia status post temporary pacemaker. 2. Advanced heart block and left bundle branch block. 3. Acute upper gastrointestinal bleed. RECOMMENDATIONS: Hemoglobin is now stable. I discussed with EP regarding permanent biventricular pacemaker placement, likely to be done later this week. Continue current cardiovascular medications otherwise. Thank you for this consult. Will continue to follow. Job#: [id number] EV
--- NOTE | 2018-05-02 19:00 | NUR ---
received report on pt from off going nurse @ pt's bedside, pt aaox3 breathing even and unlabored on room air, Pt denies pain at this time., Pt asked to walk to the potty, off going nurse states she's ok to ambulate with assistance. Assisted patient to the bathroom and back to bed.
--- NOTE | 2018-05-02 19:09 | NUR ---
Report given to CARROL Carolina.
[2018-05-03] VITALS (20 sets, daily range): BP systolic 125–160; BP diastolic 49–88
--- NOTE | 2018-05-03 01:00 | NUR ---
Dr. Weems here to assess pt's status, pt ask when she was going to get pacemaker, he informed her thats up to the room service food service attendant to decide, i'm the stomach pt ststed ok and went back to sleep
[2018-05-03] MEDS: PIPER-TAZ 3.375 GM 50 ML IV SCH ×4 (04:40→20:49)
--- NOTE | 2018-05-03 05:00 | NUR ---
ASSISTED PT BACK BATHROOM WITH WALKER AND BACK TO BED, PT DEFECATED ONE MED LOOSE BLACK/GREEN STOOL, DENIES ANY DISCOMFORTS TO ABDOMINAL AREA
--- NOTE | 2018-05-03 07:27 | NUR ---
Bedside report from CARROL Carolina. Per Dr Young request, paged Dr Sheriff to inquire of possible permanent pacemaker placement.
[2018-05-03] MEDS: INSULIN LISPRO 100 UNIT/1 ML 3ML VIAL SQ SCH ×4 (07:30→22:20)
[2018-05-03 08:53] LABS: BASOPHILS % 0.4 % (0.0-1.0); EOSINOPHILS # (AUTO) 0.4 (0.0-0.4); EOSINOPHILS % 5.4 % (0.0-6.0); HEMATOCRIT 26.4 % (34.2-44.1); HEMOGLOBIN 8.7 g/dL (12.0-16.0); LYMPHOCYTES # (AUTO) 1.3 (1.0-3.2); MEAN CORPUSCULAR HEMOGLOBIN 31.5 pg (28-32); MEAN CORPUSCULAR VOLUME 95.7 fL (81-99); MONOCYTES # (AUTO) 1.1 (0.2-0.8); MONOCYTES % 14.3 % (4.4-11.3); NEUTROPHILS # (AUTO) 4.9 (2.1-6.9); PLATELET COUNT 184 x10e3/uL (140-360); RED BLOOD COUNT 2.76 x10e6/uL (3.6-5.1); RED CELL DISTRIBUTION WIDTH 15.3 % (11.7-14.4)
[2018-05-03 09:08] LABS: ANION GAP 9.5 mmol/L (8-16); CALCIUM 8.1 mg/dL (8.4-10.2); CREATININE, SERUM 1.28 mg/dL (0.57-1.11); POTASSIUM 3.5 mmol/L (3.5-5.1)
--- NOTE | 2018-05-03 09:30 | NUR ---
ASSESSMENT: Spiritual concern Pt states she hopes to feel better following procedure. Pt enjoys her children and grandchildren. Intervention: Provided unhurried pastoral conversation and empathic listening. Facilitated storytelling. Outcome: Provided information on how to reach multimedia editor, if needed. Will follow as able. DAVID CHAHAL Wood Drilling Machine Operator Spiritual Care Department O: [phone] Pager: [phone] ([phone] number calling from)
[2018-05-03] MEDS: LEVOTHYROXINE SODIUM 75 MCG TAB PO SCH (09:32)
[2018-05-03] MEDS: SUCRALFATE 1 GM/10 ML SUSP NG SCH ×4 (09:32→20:49)
[2018-05-03] MEDS: PANTOPRAZOLE 40 MG 10ML VIAL IV SCH ×2 (09:33→20:49)
[2018-05-03] MEDS: NIFEDIPINE CR 30 MG TAB PO SCH (09:33)
[2018-05-03] MEDS: CYANOCOBALAMIN INJ 1,000 MCG/ML VIAL IM SCH (09:33)
[2018-05-03] MEDS: FOLIC ACID 1 MG TAB PO SCH (09:33)
[2018-05-03] MEDS: SODIUM CHLORIDE 0.9% 1000ML 1,000 ML IV SCH (14:59)
--- NOTE | 2018-05-03 15:07 | NUR ---
Nutrition Intervention Note RD Recommendation(s) for Physician: -Rec advancing to GI soft/ cardiac diet as medically feasible -Rec Ensure Compact BID to promote protein-calorie intake -Rec MVi w/ minerals and vitamin C to support wound healing Plan of Care: RD following, monitoring for tolerance and adequacy, ONS Nutrition reason for involvement: LOS RD Assessment 05/03 Chart reviewed. Pt was discussed during rounds. Pt will be NPO for permanent pacemarker placement today. Visited pt in the room. Pt is awake, alert and in no acute distress. Pt has an appetite and is eager to eat. Full liquid diet is well tolerated. No GI complains noted. LBM 05/03, no bleeding noted. Pt denies any chewing or swallowing difficulty. Will continue to monitor and follow. Principal Problems/Diagnoses: 1. Symptomatic bradycardia status post temporary pacemaker. 2. Advanced heart block and left bundle branch block. 3. Acute upper gastrointestinal bleed. PMH: CAD, CKD, HTN, hypothyroidism, DM, dyslipidemia, morbid obesity GI: LBM 05/03 Skin: Sacral- Non-Healing Stage II Pressure Ulcer, per wound care notes Labs: (05/03) Glucose 162 H, Ca 8.1 L Meds: Protonix, folic acid, vitamin B12 Ht: 64in Wt: 190lb BMI: 32.6kg/m2 IBW: 120lb Malnutrition Evaluation (05/03/18) The patient does not meet criteria for a specified degree of malnutrition at this time. Will re-evaluate at follow-up as appropriate. Nutrition Prescription (Diet Order): Full liquid diet Estimated Nutritional Needs: Calories: 1375- 1650kcal(25-30kcal/kg/d) Weight used : IBW Protein : 83 138g(1.5-2.5g/kg/d) Weight used: IBW Diet Adequacy: Not meeting calorie needs, Not meeting protein needs full liquid diet Diet Education Needs Assessment: Diet education indicated and pt requested for RD to return later for education Nutrition Care Level: low Nutrition Diagnosis: Increased protein needs related to altered skin integrity as evidenced by non-healing Stage II pressure ulcer on sacrum. Goal: Patient will meet 75-100% of estimated needs by follow up Progress: N/A Interventions: Texture-modified diet, Commercial beverage, Multivitamin/mineral supplement therapy Monitoring/Evaluation: Total energy intake, Total protein intake, Modified diet, Liquid supplement, Weight change Signed: Arielle Nam MS, RD, LD
--- NOTE | 2018-05-03 18:00 | NUR ---
Patient to laboratory animal care veterinarian via bed with monitor in place. waiting in room.
[2018-05-03] MEDS ORDERED: HEPARIN SOD/SOD CHLORIDE 1,000 ML ONE (18:18)
[2018-05-03] MEDS ORDERED: MIDAZOLAM HCL 2 MG/2 ML VIAL ONE (18:18)
[2018-05-03] MEDS ORDERED: VANCOMYCIN 1GM/NS 250 ML 250 ML ONE (18:18)
[2018-05-03] MEDS ORDERED: FENTANYL CITRATE/PF 100MCG/2 ML INJ ONE (18:18)
[2018-05-03] MEDS ORDERED: SODIUM CHLORIDE 0.9% 1000ML 1,000 ML ONE (18:19)
[2018-05-03] MEDS ORDERED: SODIUM CHLORIDE 0.9% 500ML 500 ML ONE (18:19)
[2018-05-03] MEDS ORDERED: BACITRACIN 50,000 UNIT VIAL ONE (18:29)
[2018-05-03] MEDS ORDERED: LIDOCAINE HCL 1% LOCAL INJ 20 ML VIAL ONE (18:29)
--- NOTE | 2018-05-03 18:56 | NUR ---
Report given to CARROL Pulido.
--- NOTE | 2018-05-03 19:00 | NUR ---
patient off the unit getting pacemaker placed
--- NOTE | 2018-05-03 19:30 | Progress Note ---
DATE: May 03, 2018 CARDIOLOGY PROGRESS NOTE SUBJECTIVE: No major events overnight. OBJECTIVE VITAL SIGNS: Temperature 99.0, pulse 66, respiratory rate 14, blood pressure 138/64, satting 99% on room air. GENERAL: Elderly female, in no acute distress. CARDIOVASCULAR: Regular rate and rhythm. No murmurs, rubs or gallops. Palpable carotid pulses. Palpable radial pulses. LUNGS: Clear to auscultation bilaterally. ABDOMEN: Soft, nontender, nondistended. Obese. NEURO: Intact. Alert and oriented to person, place, and time. CARDIOVASCULAR MEDICATIONS: Reviewed. LABORATORY DATA: Reviewed. ASSESSMENT AND PLAN 1. Symptomatic bradycardia, status post temporary pacemaker. 2. Advanced heart block and left bundle branch block. 3. Acute upper gastrointestinal bleeding. RECOMMENDATIONS: Plan for permanent pacemaker, biventricular, by EP later today. Continue other cardiovascular medications otherwise. Thank you for this consult. Will continue to follow. Job#: [id number]
[2018-05-03] MEDS: ACETAMINOPHEN/CODEINE 300MG - 30MG TAB PO PRN (22:20)
[2018-05-04] VITALS (19 sets, daily range): BP systolic 118–165; BP diastolic 57–96
[2018-05-04] MEDS: SODIUM CHLORIDE 0.9% 1000ML 1,000 ML IV SCH ×3 (00:20→17:32)
[2018-05-04] MEDS: ACETAMINOPHEN/CODEINE 300MG - 30MG TAB PO PRN ×3 (02:29→17:26)
[2018-05-04] MEDS: PIPER-TAZ 3.375 GM 50 ML IV SCH ×4 (02:30→21:32)
[2018-05-04 04:34] LABS: BASOPHILS % 0.4 % (0.0-1.0); EOSINOPHILS # (AUTO) 0.3 (0.0-0.4); HEMATOCRIT 25.2 % (34.2-44.1); HEMOGLOBIN 8.7 g/dL (12.0-16.0); LYMPHOCYTES # (AUTO) 1.5 (1.0-3.2); LYMPHOCYTES % 17.1 % (18.0-39.1); MEAN CORPUSCULAR HEMOGLOBIN 32.3 pg (28-32); MEAN CORPUSCULAR HGB CONC 34.5 g/dL (31-35); MEAN CORPUSCULAR VOLUME 93.7 fL (81-99); MONOCYTES # (AUTO) 1.3 (0.2-0.8); MONOCYTES % 14.6 % (4.4-11.3); NEUTROPHILS # (AUTO) 5.4 (2.1-6.9); NEUTROPHILS % 63.4 % (38.7-80.0); PLATELET COUNT 178 x10e3/uL (140-360); RED BLOOD COUNT 2.69 x10e6/uL (3.6-5.1); RED CELL DISTRIBUTION WIDTH 15.2 % (11.7-14.4)
[2018-05-04 04:50] LABS: ANION GAP 12.2 mmol/L (8-16); CALCIUM 8.3 mg/dL (8.4-10.2); CREATININE, SERUM 1.18 mg/dL (0.57-1.11); POTASSIUM 3.2 mmol/L (3.5-5.1)
[2018-05-04 05:21] LABS: MAGNESIUM 1.8 MG/DL (1.3-2.1); PHOSPHORUS 2.6 MG/DL (2.3-4.7)
[2018-05-04] MEDS: INSULIN LISPRO 100 UNIT/1 ML 3ML VIAL SQ SCH ×4 (07:30→21:00)
[2018-05-04] MEDS: SUCRALFATE 1 GM/10 ML SUSP NG SCH ×4 (08:04→21:32)
[2018-05-04] MEDS: LEVOTHYROXINE SODIUM 75 MCG TAB PO SCH (08:32)
[2018-05-04] MEDS: FOLIC ACID 1 MG TAB PO SCH (08:33)
[2018-05-04] MEDS: NIFEDIPINE CR 30 MG TAB PO SCH (08:33)
[2018-05-04] MEDS ORDERED: SODIUM CHLORIDE 0.9% 500ML 500 ML ONE (08:34)
[2018-05-04] MEDS ORDERED: POTASSIUM CHLORIDE 20 MEQ TAB CR PO STA (09:46)
[2018-05-04] MEDS: PANTOPRAZOLE 40 MG 10ML VIAL IV SCH ×2 (09:56→21:32)
[2018-05-04] MEDS: CYANOCOBALAMIN INJ 1,000 MCG/ML VIAL IM SCH (09:56)
[2018-05-04] MEDS ORDERED: MAGNESIUM SULFATE 2GM/50ML 50 ML IV ONE (10:00)
--- NOTE | 2018-05-04 11:15 | NUR ---
PATIENT ARRIVED TO ROOM 295 AT THIS TIME. SHE IS IN STABLE CONDITION. PATIENT AND FAMILY ORIENTED TO ROOM AND POLICIES. CALL LIGHT WITHIN REACH. BED IN THE LOWEST POSITION.
[2018-05-04] MEDS: LISINOPRIL 10 MG TAB PO SCH (11:55)
[2018-05-04] MEDS: CARVEDILOL 12.5 MG TAB PO SCH ×2 (11:55→17:13)
--- NOTE | 2018-05-04 14:06 | NUR ---
IMM EXPLAINED, SIGNED AND PLACED IN CHART COPY IN PT'S TRANSITION CARE FOLDER GAVE PT MY CARD FOR QUESTIONS/CONCERNS
--- NOTE | 2018-05-04 16:20 | Progress Note ---
DATE: May 04, 2018 CARDIOLOGY PROGRESS NOTE SUBJECTIVE: Had her BIVI pacemaker placed yesterday. No complications. Pacemaker checked and within normal limits. Dressing in place. OBJECTIVE VITAL SIGNS: Temperature afebrile, pulse 68, respiratory rate 16, blood pressure 140/64, satting 96% on room air. GENERAL: Elderly female in no acute distress. CARDIOVASCULAR: Regular rate and rhythm. No murmurs, rubs or gallops. LUNGS: Clear to auscultation bilaterally. ABDOMEN: Soft, nontender and nondistended. NEURO AND PSYCH: Alert and oriented to person, place and time. Normal affect. INPATIENT MEDICATIONS: Reviewed. LABORATORY DATA: Reviewed. IMAGING DATA: Reviewed. TELEMETRY DATA: Reviewed. Shows BIVI paced rhythm. ASSESSMENT AND PLAN 1. Symptomatic bradycardia: Status post biventricular pacemaker placement. 2. Acute systolic heart failure exacerbation. 3. Acute upper gastrointestinal bleeding. RECOMMENDATIONS: Doing well post pacemaker implant. Her EF is 35% to 40%. Will start her on beta tessie and BIJU inhibitors now that her pressure has improved and hemoglobin is stable. Patient is okay to be discharged from a cardiovascular standpoint. She will follow up and if remains stable from a GI perspective. Will get an outpatient coronary angiogram performed. Thank you for this consult. Will continue to follow. Job#: [id number] JAM
--- NOTE | 2018-05-04 16:52 | NUR ---
CALLED DR. MONTEJO TO NOTIFY HIM THAT DR. Cameron ACOSTA STATED PATIENT COULD GO HOME TODAY, PER DR. MONTEJO HE WILL DISCHARGE PATIENT TOMORROW.
--- NOTE | 2018-05-04 18:06 | NUR ---
CALLED DR. Cameron ACOSTA IN REGARDS TO ORDER FOR DOPAMINE, NO ANSWER, LVM
--- NOTE | 2018-05-04 18:57 | NUR ---
CALLED DR. Cameron ACOSTA AGAIN FOR DOPAMINE ORDER. DR. LARA UNHAIRER RECEIVED ORDER TO DC DOPAMINE.
--- NOTE | 2018-05-04 19:12 | NUR ---
REPORT GIVEN TO ONCOMING NURSE, PATIENT IS IN STABLE CONDITION. NO SOB, NO ACUTE DISTRESS NOTED. CALL LIGHT WITHIN REACH. BED IN THE LOWEST POSITION. BED ALARM ON.
--- NOTE | 2018-05-04 21:40 | NUR ---
PATIENT WAS ASSISTED TO THE REST ROOM, SHE NOW BACK IN BED WITHOUT DISTRESS. BED ALARM ON, CALL LIGHT WITHIN EASY REACH.
--- NOTE | 2018-05-05 00:38 | NUR ---
PATIENT WATCHING TV, NO ACUTE DISTRESS OBSERVED, SHE DENIES PAIN. BED ALARM ON, CALL LIGHT WITHIN EASY REACH, SHE'S INSTRUCTED TO CALL FOR ASSISTANCE NEEDED.
[2018-05-05 01:00] VITALS: BP 152/69
[2018-05-05] MEDS: PIPER-TAZ 3.375 GM 50 ML IV SCH ×2 (03:18→08:35)
--- NOTE | 2018-05-05 04:05 | NUR ---
PATIENT ASSISTED TO THE TOILET, SHE HAD MODERATE AMOUNT OF GREEN LOOSE STOOL. HAND HYGIENE PROVIDED, PATIENT IS NOW BACK IN BED WITH BED ALARM ON AND CALL LIGHT WITHIN EASY REACH.
[2018-05-05 05:27] VITALS: BP 144/63
--- NOTE | 2018-05-05 07:04 | NUR ---
RECEIVED PATIENT RESTING IN BED WITH EYES CLOSED. NO ACUTE DISTRESS NOTED. CALL LIGHT WITHIN REACH. BED IN THE LOWEST POSITION. BED ALARM ON.
[2018-05-05 07:20] VITALS: BP 150/67
[2018-05-05] MEDS: INSULIN LISPRO 100 UNIT/1 ML 3ML VIAL SQ SCH (07:30)
[2018-05-05] MEDS: PANTOPRAZOLE 40 MG 10ML VIAL IV SCH (08:35)
[2018-05-05] MEDS: SUCRALFATE 1 GM/10 ML SUSP NG SCH (08:35)
[2018-05-05] MEDS: LEVOTHYROXINE SODIUM 75 MCG TAB PO SCH (08:35)
[2018-05-05] MEDS: CYANOCOBALAMIN INJ 1,000 MCG/ML VIAL IM SCH (08:35)
[2018-05-05] MEDS: FOLIC ACID 1 MG TAB PO SCH (08:35)
[2018-05-05] MEDS: CARVEDILOL 12.5 MG TAB PO SCH (08:35)
[2018-05-05] MEDS: NIFEDIPINE CR 30 MG TAB PO SCH (08:35)
[2018-05-05] MEDS: LISINOPRIL 10 MG TAB PO SCH (08:35)
[2018-05-05] MEDS: SODIUM CHLORIDE 0.9% 1000ML 1,000 ML IV SCH (08:37)
--- NOTE | 2018-05-05 10:25 | NUR ---
RECEIVED DISCHARGE ORDER FROM MD. PATIENT IS IN STABLE CONDITION. IV LINE TO LEFT AC AND LEFT FA DC'D WITH TIP INTACT, PRESSURE APPLIED, NO BLEEDING NOTED. DISCHARGE TEACHING PROVIDED TO PATIENT AND , THEY BOTH VERBALIZED UNDERSTANDING. DISCHARGE FOLDER ON HAND WHICH HAS THE DISCHARGE PAPERWORK AND PRESCRIPTIONS. PERSONAL ITEMS ON HAND. PATIENT WAS ACCOMPANIED TO PRIVATE AUTO VIA WHEELCHAIR BY STAFF.
--- NOTE | 2018-05-05 12:21 | Discharge Summary ---
PRIMARY CARE PHYSICIAN: Dr. Juan Lees. CONSULTANTS 1. Dr. Enrique Weems. 2. Dr. Tito Robledo. 3. Dr. Junior Young FINAL DIAGNOSES 1. Acute blood loss anemia with hematemesis status post esophagogastroduodenoscopy, has multiple gastric ulcers with history of gastric bypass surgery with gastrectomy. 2. Sick sinus syndrome with a severe mohini tachycardia status post permanent pacemaker in the left chest. 3. B12 deficiency, on B12 injection. 4. Multiple blood transfusions. 5. Electrolyte disorder, corrected. 6. Baseline diabetes type 2. 7. History of coronary stenting greater than 6 months. 8. Obesity. DISCHARGE INSTRUCTIONS HOME MEDICATIONS She will continue including Lipitor, vitamin B12, gabapentin, levothyroxine, metformin, omega-3 fatty acid. Home medication was stopped including Norvasc, aspirin, Plavix, metoprolol succinate, and Actos. NEW PRESCRIPTION Nifedipine XL 60 mg daily. Lisinopril 10 mg daily. B12 1000 mcg IM monthly. Hematin Plus 1 tablet b.i.d. Colace 100 mg b.i.d. Carafate suspension 1 g p.o. q.h.s. Coreg 12.5 mg b.i.d. Doxycycline monohydrate 100 mg b.i.d. for 7 days. Omeprazole 40 mg twice a day for 3 months. Tylenol Number 3 one q.6 hours, p.r.n. for pain. HOSPITAL COURSE: The patient is a 72-year-old female who came in with hematemesis severely anemic with increasing shortness of breath and also symptomatic anemia severely, heart rate in the 30s or 40s. The patient's hemoglobin and hematocrit was very low on admission contributing to the patient's symptoms. Her hemoglobin and hematocrit was 7.3 and 22.2 respectively. BUN and creatinine was 56 and 1.48. The patient admitted to the hospital for treatment. She was on aspirin and Plavix. She had coronary stent greater than 6 months. The patient also has history of partial gastrectomy for weight loss surgery. Her B12 level was very low on admission. The laboratory showed that her B12 was 124, folic acid was 13, hemoglobin and hematocrit was 6.6 and 21.0. In the emergency room, the patient did receive 2 units blood transfusion. Hemoglobin and hematocrit on inpatient was 7.3 and 22.9 after 2 units blood transfusion. The patient was having hematemesis. She has also had dark stool. She had acute blood loss anemia. Her heart rate in the 30s to 40s. Subsequently underwent repeated blood transfusions and subsequently had a permanent pacemaker placement. After that, the patient underwent EGD and found that she has ulcerated at the gastrectomy site. There was active bleed. There was an ulcer in the EG junction. The patient was given IV Protonix as well. She did better and continued to improve. The patient subsequently transferred out of the ICU. Her hemoglobin and hematocrit today is 8.7 and 25.2. BUN and creatinine is 13 and 1.1. The patient is otherwise stable. She did receive physical therapy. The patient is going to go home today. She is well cared for by her family. Her is in the room. She is ambulatory. Instruction was given for patient to followup with her permanent pacemaker in the left upper chest area. Instructions for the permanent pacemaker care. She will follow up with Dr. Juan Lees in approximately [address] Enrique Weems in approximately 1 to [address] Junior Young in approximately 1 to 2 weeks for permanent pacemaker followup. The patient is otherwise stable, discharged home today. Medication reconciliation is done and prescriptions are given. The patient is to followup as instructed. Patient is stable to discharge home today. Job#: [id number] SUNIL
--- NOTE | 2018-05-08 15:30 | Operative Report ---
DATE OF PROCEDURE: May 03, 2018 PREOPERATIVE DIAGNOSES 1. High-degree atrioventricular block. 2. Left bundle branch block. 3. Low ejection fraction. 4. Requirement of pacing. PROCEDURES PERFORMED 1. Implantation of a biventricular pacemaker with explanation of a temporary pacemaker. 2. Moderate sedation with 2 of Versed and 50 of fentanyl for 60 minutes while O2 sat, heart rate and blood pressure was being monitored by me and the circulating nurse. The patient was brought into the EP lab in fasting state. Left chest was prepped and draped in a sterile fashion. Conscious sedation was administered. venogram was performed. Vancomycin and Ancef were given. A 4 cm skin incision was made. Subcutaneous tissue and pocket were dissected. Three guidewires were inserted inside the left axillary vein using modified Seldinger technique. No complications. A pacing lead advanced through the RV apex. Sensing 10. Threshold 0.9. Impedance 520 Ohms. Coronary sinus cannulated using a Wooly wire. A closed venography was performed and showed a suitable posterolateral branch, which was cannulated using a long spiral quadripolar catheter with excellent numbers. Sensing 5. Threshold 1.2. Impedance 500 Ohms. Pacing lead advanced to the right atrial appendage and fixated in place. Sensing was 3. Threshold 2. Impedance 380 Ohms. All leads sutured to the fascia using 0 silk. Pocket was profusely irrigated using antibiotic solution. Leads were connected. Two [employer] BIVI pacemaker, serial number [id number]. Generator placed inside the pocket and sutured to the fascia using 0 silk. Subcutaneous tissue approximated with 2-0 Vicryl in 2 layers. Skin was approximated with 4-0 Vicryl and Dermabond. At this point, the sutures on the right IJ temporary pacemaker was removed. The helix was retracted. The temporary pacemaker was disconnected from the lead by placing a stylette and was removed from the heart. Manual compression was applied for this site. The patient tolerated the procedure well with no complications. CONCLUSION: Implantation of a biventricular pacemaker. Moderate sedation. Explanation of a temporary pacemaker. Follow up in 2 weeks. Job#: [id number] JAM ENGEL
== END 2018-05-05 10:44 | disposition home or self-care (01) | DRG 228 ==
LOC: ER 12:58 → ERHOLD 15:51 → IMCU 18:03 → ICU 04-29 18:39 → MED/SURG3 05-04 11:25
PROVIDERS: ADMIT Internal Medicine; ATTEND Internal Medicine
PROC: 02HV33Z Insertion of Infusion Device into Superior Vena Cava, Percutaneous Approach (ICD-10-PCS; 2018-04-28)
PROC: 30233N1 Transfusion of Nonautologous Red Blood Cells into Peripheral Vein, Percutaneous Approach (ICD-10-PCS; 2018-04-28)
PROC: 02HK3NZ Insertion of Intracardiac Pacemaker into Right Ventricle, Percutaneous Approach (ICD-10-PCS; 2018-04-29)
PROC: 4A023N7 Measurement of Cardiac Sampling and Pressure, Left Heart, Percutaneous Approach (ICD-10-PCS; 2018-04-29)
PROC: B2111ZZ Fluoroscopy of Multiple Coronary Arteries using Low Osmolar Contrast (ICD-10-PCS; 2018-04-29)
PROC: B2151ZZ Fluoroscopy of Left Heart using Low Osmolar Contrast (ICD-10-PCS; 2018-04-29)
PROC: 0JPT0PZ Removal of Cardiac Rhythm Related Device from Trunk Subcutaneous Tissue and Fascia, Open Approach (ICD-10-PCS; 2018-04-30)
PROC: 02HK3JZ Insertion of Pacemaker Lead into Right Ventricle, Percutaneous Approach (ICD-10-PCS; 2018-04-30)
PROC: 0DB48ZX Excision of Esophagogastric Junction, Via Natural or Artificial Opening Endoscopic, Diagnostic (ICD-10-PCS; 2018-05-01)
PROC: 0DB78ZX Excision of Stomach, Pylorus, Via Natural or Artificial Opening Endoscopic, Diagnostic (ICD-10-PCS; 2018-05-01)
PROC: 0JH606Z Insertion of Pacemaker, Dual Chamber into Chest Subcutaneous Tissue and Fascia, Open Approach (ICD-10-PCS; principal; 2018-05-03)
PROC: 02H43JZ Insertion of Pacemaker Lead into Coronary Vein, Percutaneous Approach (ICD-10-PCS; 2018-05-03)
PROC: 02HK3JZ Insertion of Pacemaker Lead into Right Ventricle, Percutaneous Approach (ICD-10-PCS; 2018-05-03)
PROC: 02H63JZ Insertion of Pacemaker Lead into Right Atrium, Percutaneous Approach (ICD-10-PCS; 2018-05-03)
DX: I49.5 Sick sinus syndrome (principal); K25.4 Chronic or unspecified gastric ulcer with hemorrhage; K95.89 Other complications of other bariatric procedure; D62 Acute posthemorrhagic anemia; I25.10 Atherosclerotic heart disease of native coronary artery without angina pectoris; Z95.5 Presence of coronary angioplasty implant and graft; Z68.32 Body mass index [BMI] 32.0-32.9, adult; I44.7 Left bundle-branch block, unspecified; E66.01 Morbid (severe) obesity due to excess calories; D51.0 Vitamin B12 deficiency anemia due to intrinsic factor deficiency; I12.9 Hypertensive chronic kidney disease with stage 1 through stage 4 chronic kidney disease, or unspecified chronic kidney disease; E11.22 Type 2 diabetes mellitus with diabetic chronic kidney disease; N18.3 Chronic kidney disease, stage 3 (moderate); Z79.4 Long term (current) use of insulin; I44.1 Atrioventricular block, second degree
CPT/HCPCS: 33208; 33210; 33216; 33225; 33234; 36415; 43239; 71045; 74176; 80048; 80053; 81001; 82550; 82553; 82607; 82728; 82746; 82948; 83036; 83540; 83690; 83735; 84100; 84443; 84466; 84484; 85014; 85018; 85025; 85045; 85610; 85730; 86850; 86900; 86920; 87086; 87400; 88305; 88312; 93005; 93306; 93454; 96365; 96366; 96367; 99284; C1766; C1887; C1898; C1900; J0360; J1940; J2001; J2250; J2353; J2405; J2543; J2765; J3370; J3420; J3475; J7030; J7040; J7050; P9016; Q9967

== ENCOUNTER 2018-05-12 07:00 | Inpatient (IN) | payer MEDICARE ==
[~2018-05-12] VITALS: Ht 162.6 cm; Wt 77.2 kg
[~2018-05-12 07:00] MED LIST changes: +AMLODIPINE BESYL5 MG PO; +ATORVASTATIN CA10 MG PO; +LEVOTHYROXINE75 MCG PO; +METFORMIN HCL500 M2 PO; +METOPROLOL SUCC25 MG; +PIOGLITAZONE HC45 MG PO
--- NOTE | 2018-05-12 08:01 | Diagnostic Imaging Report ---
EXAMINATION: Head CT HISTORY: Syncope, fall, evaluate for CVA. COMPARISON: None. TECHNIQUE: Multidetector axial images were obtained without contrast from the foramen magnum to the vertex . The images were reconstructed using brain and bone algorithms. Thin section brain images were reformatted into coronal and sagittal planes. Image quality: Motion/streaking artifact limits the evaluation of the skull base and posterior cranial fossa. Dose modulation, iterative reconstruction, and/or weight based adjustment of the mA/kV was utilized to reduce the radiation dose to as low as reasonably achievable. FINDINGS: Parenchyma: 1. Scattered and moderate confluent supratentorial white matter hypodensities, most likely nonspecific chronic microvascular ischemic changes. 2. No mass or hemorrhage. No CT evidence of acute territorial vascular insult. Extra-axial spaces:No abnormal density. No extra-axial fluid collections Brain volume: Normal for age. Ventricles: No hydrocephalus or displacement. Arteries: No density suggestive of thrombus. Dural sinuses: No abnormal density. Extra-axial spaces: No abnormal density. Foramen magnum: No mass, Chiari malformation, or basilar invagination. Sella: No obvious mass. Paranasal/mastoid sinuses: Imaged portions unremarkable. Skull/Scalp: No lytic or blastic lesions. No fractures. IMPRESSION: 1. No acute intracranial hemorrhage or CT evidence of acute cortical infarct. 2. Moderate chronic microvessel ischemic changes. Signed by: Dr. Anca Ngo M.D. on 05/12/2018 7:58 AM
[2018-05-12 08:13] LABS: BASOPHILS # (AUTO) 0.1 (0.0-0.1); BASOPHILS % 0.6 % (0.0-1.0); EOSINOPHILS # (AUTO) 0.3 (0.0-0.4); EOSINOPHILS % 2.9 % (0.0-6.0); HEMATOCRIT 26.2 % (34.2-44.1); HEMOGLOBIN 8.6 g/dL (12.0-16.0); MEAN CORPUSCULAR HEMOGLOBIN 32.7 pg (28-32); MEAN CORPUSCULAR HGB CONC 32.8 g/dL (31-35); MEAN CORPUSCULAR VOLUME 99.6 fL (81-99); MONOCYTES % 10.1 % (4.4-11.3); NEUTROPHILS # (AUTO) 6.7 (2.1-6.9); NEUTROPHILS % 65.8 % (38.7-80.0); PLATELET COUNT 357 x10e3/uL (140-360); RED BLOOD COUNT 2.63 x10e6/uL (3.6-5.1)
[2018-05-12 08:17] LABS: BILIRUBIN,URINE NEGATIVE (NEGATIVE); CLARITY,URINE HAZY (CLEAR); COLOR,URINE YELLOW (YELLOW); KETONES,URINE NEGATIVE (NEGATIVE); LEUKOCYTE ESTERASE ,URINE NEGATIVE (NEGATIVE); NITRITE,URINE NEGATIVE (NEGATIVE); PROTEIN,URINE DIPSTICK TRACE (NEGATIVE); URINE UROBILINOGEN 0.2 mg/dL (0.2 - 1)
[2018-05-12 08:19] LABS: AMORPHOUS SEDIMENT,URINE MODERATE (FEW); BACTERIA,URINE FEW /HPF; EPITHELIAL CELLS,URINE FEW /LPF; RBC,URINE 0-5 /HPF (0-5); WBC,URINE (MAN) 0-5 /HPF (0-5)
[2018-05-12 08:20] LABS: INR 0.89; PROTHROMBIN TIME 12.9 seconds (11.9-14.5)
[2018-05-12 08:30] LABS: ALBUMIN 2.9 g/dL (3.5-5.0); ALBUMIN/GLOBULIN RATIO 0.8 (0.8-2.0); ANION GAP 16.4 mmol/L (8-16); CREATININE, SERUM 3.97 mg/dL (0.57-1.11); POTASSIUM 5.4 mmol/L (3.5-5.1)
--- NOTE | 2018-05-12 08:33 | Diagnostic Imaging Report ---
EXAMINATION: CHEST SINGLE (NOT PORTABLE) COMPARISON: Chest x-ray 04/28/2018 INDICATION: ^SYNCOPY ^[id number] ^0715 DISCUSSION: Frontal view of the chest obtained at 0713 hours. HEART AND MEDIASTINUM: Stable cardiomegaly. LINES: Multi lead pacemaker is present with wires in the right atrium, right ventricle, and coronary sinus LUNGS: Poor visualization of the left diaphragm. Patchy airspace opacities in the base of the right lung. Central pulmonary vasculature is mildly prominent. No interstitial thickening. PLEURA: No large effusions. No pneumothorax. BONES AND SOFT TISSUES: Degenerative changes of the spine and AC joints. No focal osseous lesion. The soft tissues are normal. IMPRESSION: 1. Pacemaker as described above. 2. Bibasilar atelectasis. Pneumonia cannot be excluded. Recommend correlation with PA and lateral chest x-ray when clinically feasible. Cannot exclude a small left pleural effusion. 3. Stable mild cardiomegaly. Prominence of the pulmonary vasculature may be due to portable technique. Signed by: Dr. Carolee Vidales MD on 05/12/2018 8:30 AM
[2018-05-12] MEDS ORDERED: SODIUM CHLORIDE 0.9% 1000ML 1,000 ML IV ONE (09:00)
[2018-05-12] MEDS: ONDANSETRON HCL INJ 2MG/ML 2ML 2 MG/ML VIAL IV PRN (10:14)
--- NOTE | 2018-05-12 12:16 | NUR ---
Recvd patient from ER in [facility], AA0x3, assisted her to transfer in to bed from [facility] with 2 person Assist, call light in reach, denies any pain, on O2 2L NC, On Tele, denies any SOB, at bed side, keep monitoring
--- NOTE | 2018-05-12 12:18 | NUR ---
Dr. Davis at bedside.
--- NOTE | 2018-05-12 12:30 | NUR ---
Notified DR Davis regarding lab potassium 5.7, no new orders recvd
[2018-05-12] MEDS ORDERED: DEXTROSE 50% SYRINGE 50 ML IV PRN (12:45)
[2018-05-12 13:15] VITALS: BP 119/92
[2018-05-12 13:19] VITALS: BP 150/69
--- NOTE | 2018-05-12 15:30 | NUR ---
Notified BMP @16:[address] Davis , new orders recvd Kaeyxalate 30mg po, IV Lasix 40 one, no pain medication to give tonight
[2018-05-12] MEDS ORDERED: SODIUM CHLORIDE 0.9% 1000ML 1,000 ML IV SCH (15:45)
[2018-05-12 16:17] VITALS: BP 153/65
[2018-05-12] MEDS: SUCRALFATE 1 GM/10 ML SUSP NG SCH ×2 (16:40→20:25)
[2018-05-12 17:10] LABS: ANION GAP 13.7 mmol/L (8-16); CALCIUM 8.5 mg/dL (8.4-10.2); CREATININE, SERUM 4.03 mg/dL (0.57-1.11); POTASSIUM 5.7 mmol/L (3.5-5.1)
[2018-05-12] MEDS ORDERED: SOD POLYSTYRENE SULFONATE SUSP 15 GM/60 ML BTL PO ONE (18:30)
[2018-05-12] MEDS ORDERED: FUROSEMIDE INJ 10 MG/ML 4 ML VIAL IV ONE (18:30)
--- NOTE | 2018-05-12 18:44 | NUR ---
patent resting in bed, tolerated with medications which Dr Davis ordered, bed alarm on, call light in reach
[2018-05-12 20:00] VITALS: BP 144/63
[2018-05-12] MEDS: ATORVASTATIN 10 MG TAB PO SCH (20:25)
--- NOTE | 2018-05-12 21:41 | NUR ---
Patient has a stage 1 pressure wound over the sacrum. A wound care consult has been initiated per protocol. patient has been turned to the side to keep pressure off of sacrum.
--- NOTE | 2018-05-12 22:00 | NUR ---
patient has not voided ever since receiving lasix treatment. Patients bladder has been scanned and bladder scanner shows patient is retaining urine. notified. received new order for puente catheter insertion.
[2018-05-13] VITALS (9 sets, daily range): BP systolic 137–187; BP diastolic 60–73
[2018-05-13 01:14] LABS: CREATINE KINASE MB 0.7 ng/mL (0-5.0)
[2018-05-13] MEDS: ACETAMINOPHEN 325 MG TAB PO PRN (01:44)
[2018-05-13 05:30] LABS: BASOPHILS # (AUTO) 0.1 (0.0-0.1); BASOPHILS % 0.5 % (0.0-1.0); EOSINOPHILS # (AUTO) 0.2 (0.0-0.4); EOSINOPHILS % 1.7 % (0.0-6.0); HEMOGLOBIN 7.5 g/dL (12.0-16.0); LYMPHOCYTES # (AUTO) 1.2 (1.0-3.2); LYMPHOCYTES % 12.3 % (18.0-39.1); MEAN CORPUSCULAR HEMOGLOBIN 32.8 pg (28-32); MEAN CORPUSCULAR VOLUME 99.1 fL (81-99); MONOCYTES % 9.9 % (4.4-11.3); NEUTROPHILS # (AUTO) 7.2 (2.1-6.9); NEUTROPHILS % 74.4 % (38.7-80.0); PLATELET COUNT 307 x10e3/uL (140-360); RED BLOOD COUNT 2.29 x10e6/uL (3.6-5.1); RED CELL DISTRIBUTION WIDTH 13.6 % (11.7-14.4)
[2018-05-13 05:39] LABS: HEMATOCRIT 22.7 % (34.2-44.1)
[2018-05-13 06:07] LABS: ANION GAP 16.5 mmol/L (8-16); CREATINE KINASE MB 0.6 ng/mL (0-5.0); CREATININE, SERUM 4.12 mg/dL (0.57-1.11); POTASSIUM 5.5 mmol/L (3.5-5.1)
[2018-05-13 06:08] LABS: ALBUMIN 2.5 g/dL (3.5-5.0); ALBUMIN/GLOBULIN RATIO 0.9 (0.8-2.0)
--- NOTE | 2018-05-13 06:14 | NUR ---
MD notified of morning potassium level, hemoglobin, and hematocrit level. MD states continue to monitor potassium and make sure patient is on a renal diet. Will continue to monitor patient.
--- NOTE | 2018-05-13 07:20 | NUR ---
patient resting in bed, AAOx2, Denies any pain, no distress noted, call light in reach bed alarm ON, PRICE IS INTACT
[2018-05-13] MEDS: LEVOTHYROXINE SODIUM 75 MCG TAB PO SCH (08:51)
[2018-05-13] MEDS: SUCRALFATE 1 GM/10 ML SUSP NG SCH ×4 (08:51→21:11)
[2018-05-13] MEDS: PANTOPRAZOLE SOD 40 MG TABEC PO SCH (08:51)
--- NOTE | 2018-05-13 10:52 | NUR ---
Met with Dr. Davis and notified him that pt meets inpatient criteria. He stated he will see the patient and assess.
[2018-05-13] MEDS ORDERED: FUROSEMIDE INJ 10 MG/ML 4 ML VIAL IV ONE (12:45)
[2018-05-13] MEDS ORDERED: SOD POLYSTYRENE SULFONATE SUSP 15 GM/60 ML BTL PO ONE ×2 (12:45→14:00)
[2018-05-13] MEDS ORDERED: NIFEDIPINE ER30 M1 PO (13:27)
[2018-05-13] MEDS ORDERED: SYNTHROID100 MCG PO (13:27)
[2018-05-13] MEDS ORDERED: ATORVASTATIN CA20 MG PO (13:27)
[2018-05-13] MEDS ORDERED: LISINOPRIL10 MG PO (13:27)
[2018-05-13] MEDS ORDERED: CARVEDILOL12.5 MG PO (13:27)
--- NOTE | 2018-05-13 13:32 | Progress Note ---
DATE: May 13, 2018 MEDICINE PROGRESS NOTE SUBJECTIVE: Patient reports having a little bit of twitching in the right upper extremity. Her renal function has not improved and actually gotten worse. Patient is alert and oriented during my examination today. Patient is eating diet well. Patient is on a renal diet now. OBJECTIVE VITAL SIGNS: Temperature is 98.1, it was 101 T-max last night. Pulse 66, respiratory rate is 18, blood pressure 174/73. Pulse ox 98% on 2 liters nasal cannula. GENERAL: Not in acute distress. Alert and oriented x3. Cooperative on examination. HEENT: Head is normocephalic and atraumatic. Eyes: Pupils are equal, round, and reactive to light bilaterally. Extraocular movements are intact bilaterally. Throat with no evidence of any erythema or exudates in the posterior pharynx. Has poor dentition. NECK: Supple. Good range of motion. PULMONARY: Clear to auscultation bilaterally. No wheezing. No rales. No rhonchi. No crackles appreciated. CARDIOVASCULAR: Positive S1, S2. No murmurs, rubs, or gallops appreciated. ABDOMEN: Soft, nondistended, and nontender to palpation. Bowel sounds are present. MUSCULOSKELETAL: Strength is 5/5 throughout. No evidence of any musculoskeletal deficit on examination. No weakness appreciated. NEUROLOGICAL: Cranial nerves II through XII are grossly intact. No evidence of any neurological deficits on exam. SKIN: Intact. Warm to touch. Good cap refill. PSYCHIATRIC: Normal affect and mood. EXTREMITIES: No edema. Good range of motion throughout. MICROBIOLOGY: Blood and urine cultures are . IMAGING STUDIES: CT brain was found to be negative. Chest x-ray, negative. IMPRESSION 1. Metabolic encephalopathy, likely due to acute kidney injury from underlying gabapentin and pain meds. 2. Anemia. 3. Acute kidney injury; following chronic kidney disease, stage 3. 4. Lower extremity edema. 5. History of coronary artery disease. 6. Hypothyroidism. 7. Urinary retention. PLAN: At this time, her renal function continues to not improve, actually has gotten worse since yesterday. She has lower extremity edema on exam and has little bit of twitching. Patient is alert and oriented x3. She is coherent on exam. She is doing well. She does have a pacemaker, so we are unable to perform an MRI of the brain. At this time, I am going to repeat a chemistry at 5 p.m. today. She currently has hyperkalemia. We will give a nice dose of Lasix 100 mg IV x1 now including dose of Kayexalate. She did have a T-max of 101 which we will go ahead and add IV Zosyn antibiotic to her. Her blood and urine cultures were found to be negative at this time, and her chest x-ray was found to be clear. Family did not bring the list of medications for us to restart, and they will bring them here later today which I will discuss with the nurse by phone and adjust the medications accordingly. I told the family the urgency and importance of bringing the home medications for us to restart. We are going get a TSH level tomorrow in the morning as well as a.m. labs. If the patient's renal function does not improve by tomorrow and her electrolytes are still abnormal and she has significant edema, I will go ahead and consider hemodialysis. We will consult with urology due to the urinary retention as well today. Otherwise, she seems to be stable. We are going to discontinue the IV fluids. I had a long discussion with the family. They seem to understand the plan of care and verbalized, with no other questions at this time. Job#: [id number] PAZ
[2018-05-13] MEDS: CEFEPIME 1GM/NS 0.9% 50 ML 50 ML IV SCH (14:15)
[2018-05-13] MEDS: NIFEDIPINE CR 30 MG TAB PO SCH (14:15)
[2018-05-13] MEDS: CARVEDILOL 12.5 MG TAB PO SCH (16:35)
--- NOTE | 2018-05-13 17:10 | NUR ---
patient resting in bed, Alert with no distress, tolerated with dinner, bed alarm on , call light in reach, puente is intact
[2018-05-13 17:47] LABS: ANION GAP 14.4 mmol/L (8-16); CALCIUM 8.6 mg/dL (8.4-10.2); CREATININE, SERUM 4.18 mg/dL (0.57-1.11); POTASSIUM 4.4 mmol/L (3.5-5.1)
--- NOTE | 2018-05-13 20:56 | NUR ---
RECEIVED PT BY HOSPITAL BED, PT IS AAOX1, RR EVEN AND NON-LABORED, O2 BY NC AT 2L. NO S/SX OF DISTRESS NOTED. PT ORIENTED TO HOSPITAL ROOM. BILATERAL HEEL PROTECTORS APPLIED TO PT AND DARIAN ALTERNATING PRESSURE PUMP APPLIED TO MATTRESS. LEFT PT LAYING SEMI FOWLERS IN BED, BED IN LOW LOCKED POSITION, SIDE RAILS UPX2, CALL LIGHT AND PHONE WITHIN REACH.
[2018-05-13] MEDS: ATORVASTATIN 10 MG TAB PO SCH (21:00)
[2018-05-13] MEDS: ATORVASTATIN 20 MG TAB PO SCH (21:11)
[2018-05-14] VITALS (7 sets, daily range): BP systolic 137–160; BP diastolic 62–70
[2018-05-14] MEDS: CEFEPIME 1GM/NS 0.9% 50 ML 50 ML IV SCH ×2 (01:44→12:59)
[2018-05-14 06:00] LABS: BASOPHILS % 0.4 % (0.0-1.0); EOSINOPHILS # (AUTO) 0.2 (0.0-0.4); EOSINOPHILS % 2.6 % (0.0-6.0); HEMATOCRIT 23.5 % (34.2-44.1); LYMPHOCYTES # (AUTO) 1.4 (1.0-3.2); LYMPHOCYTES % 16.1 % (18.0-39.1); MEAN CORPUSCULAR HEMOGLOBIN 32.7 pg (28-32); MEAN CORPUSCULAR VOLUME 95.9 fL (81-99); MONOCYTES % 11.5 % (4.4-11.3); NEUTROPHILS # (AUTO) 6.2 (2.1-6.9); NEUTROPHILS % 69.1 % (38.7-80.0); PLATELET COUNT 297 x10e3/uL (140-360); RED BLOOD COUNT 2.45 x10e6/uL (3.6-5.1); RED CELL DISTRIBUTION WIDTH 13.7 % (11.7-14.4)
[2018-05-14] MEDS: LEVOTHYROXINE SODIUM 75 MCG TAB PO SCH (06:00)
[2018-05-14 06:07] LABS: CALCIUM 8.1 mg/dL (8.4-10.2); CREATININE, SERUM 4.1 mg/dL (0.57-1.11)
[2018-05-14] MEDS: LEVOTHYROXINE SODIUM 100 MCG TAB PO SCH (06:17)
--- NOTE | 2018-05-14 07:27 | Diagnostic Imaging Report ---
EXAMINATION: CHEST SINGLE (PORTABLE) INDICATION: Shortness of breath. COMPARISON: Chest radiograph 05/12/2018. FINDINGS: TUBES and LINES: Left-sided pacemaker with leads in unchanged position. LUNGS/PLEURA: Lower lung volumes. Increased moderate perihilar and interstitial opacities. Patchy left retrocardiac opacity. Small left and trace right pleural effusion. No evidence of pneumothorax. HEART AND MEDIASTINUM: The cardiomediastinal silhouette is unchanged with mild cardiomegaly. BONES AND SOFT TISSUES: No acute osseous abnormality. UPPER ABDOMEN: No free air under the diaphragm. IMPRESSION: Mild cardiomegaly with increasing moderate pulmonary interstitial edema. Small left and trace right pleural effusions. Left retrocardiac opacity, likely atelectasis. Pneumonia can have a similar appearance in the appropriate clinical setting. Signed by: Dr. Mishel Jain MD on 05/14/2018 7:24 AM
--- NOTE | 2018-05-14 07:28 | NUR ---
Received patient and walking rounds complete. Patient resting in bed at this time no signs of distress. Bed in lowest position, wheels locked, call light in reach, side rails up x2. Will continue to monitor.
[2018-05-14] MEDS: CARVEDILOL 12.5 MG TAB PO SCH ×2 (08:28→16:43)
[2018-05-14] MEDS: SUCRALFATE 1 GM/10 ML SUSP NG SCH ×4 (08:28→21:00)
[2018-05-14] MEDS: PANTOPRAZOLE SOD 40 MG TABEC PO SCH (08:28)
[2018-05-14] MEDS: NIFEDIPINE CR 30 MG TAB PO SCH (08:29)
--- NOTE | 2018-05-14 08:31 | History and Physical ---
CHIEF COMPLAINT: Altered mental status. HPI: This is a 72-year-old female who has a history of sick sinus syndrome with severe mohini tachy, status post left chest permanent pacemaker placed on the last discharge, acute blood loss anemia secondary to hematemesis status post EGD with multiple gastric ulcers and history of gastric bypass, and type 2 diabetes, who comes to the ED after being found to be very altered and confused this morning. According to the at bedside as well as the family, the patient was in her normal state of mind yesterday until this morning when she woke up. She became very confused, felt like she was "kind of drunk." Last night, she took some Tylenol No. 4 due to some chronic pain that she has on her right shoulder. On presentation here, the patient was alert and oriented x4 with no issues. There was some concern of some tremors. She was found to be in acute kidney injury as well with a creatinine of close to 4. Patient has a known history of chronic kidney disease in the past, has not followed up with a vibrator equipment tester prior to this admission. Her creatinine on discharge on May 04, 2018 was 1.2 and today is 3.97. The patient in the ER, is more alert with no issues at this time. REVIEW OF SYSTEMS: Pertinent positives: Altered mental status, confusion, and dehydration. Pertinent negatives: Denies any chest pain, palpitations, nausea, vomiting, diarrhea, dysuria, hematuria, frequency, urgency, lightheadedness, dizziness, abdominal pain, headache, shortness of breath, cough, congestion, fever, or any other complaints. Rest of the 14-point review of systems is . ALLERGIES: NO KNOWN DRUG ALLERGIES. MEDICATIONS: Lipitor 10 mg daily, gabapentin ____ ____. PAST MEDICAL HISTORY 1. Sinus bradycardia, status post pacemaker placement. 2. Kidney injury and CKD stage 3. 3. Status post pacemaker placement . PHYSICAL EXAMINATION VITAL SIGNS: pulse ox 100% on 2 liters nasal cannula. GENERAL: Not in acute distress. Alert and oriented x3. Cooperative on examination. HEENT: Head is normocephalic and atraumatic. Eyes: Pupils are equal and reactive to light bilaterally. Extraocular movements are intact bilaterally. Throat with no evidence of any erythema or exudates in the posterior pharynx. Has poor dentition. NECK: Supple. Good range of motion. PULMONARY: Clear to auscultation bilaterally. No wheezing. No rales. No rhonchi. No crackles appreciated. CARDIOVASCULAR: Positive S1, S2. No murmurs, rubs, or gallops appreciated. ABDOMEN: Soft, nondistended, and nontender to palpation. Bowel sounds are present. MUSCULOSKELETAL: Strength is 5/5 throughout. No evidence of any musculoskeletal deficit on examination. No weakness appreciated. NEUROLOGICAL: Cranial nerves II through XII are grossly intact. No evidence of any neurological deficits on exam. SKIN: Intact. Warm to touch. Good cap refill. PSYCHIATRIC: Normal affect and mood. EXTREMITIES: No edema. Good range of motion throughout. LAB FINDINGS: Show white count is 10.2, hemoglobin . Coagulation: PT 12, INR 0.8, and PTT 35. Chemistries: Sodium , chloride 105, bicarb 20, anion gap of 16, BUN , which is normal at this hospital. LFTs were normal. Troponin was negative. Albumin 2.9. Urinalysis was negative. MICROBIOLOGY: Blood and urine cultures are pending. IMAGING STUDIES: Chest x-ray showed some bibasilar atelectasis. Pacemaker seen. CT of the brain revealed no acute intracranial hemorrhage or CT evidence of acute . Otherwise, negative CT brain. IMPRESSION 1. Metabolic encephalopathy likely secondary to acute kidney injury . 2. Recent tachybrady syndrome, status post pacemaker placement. 3. Recent esophagogastroduodenoscopy with gastric ulcers. 4. Dehydration leading to hyperkalemia. 5. Type 2 diabetes. 6. Lower extremity edema. PLAN: At this time, we are going to hold all sedating medications including codeine and gabapentin. This is likely the culprit of her metabolic encephalopathy. She is now alert and oriented x4 and her CT brain was negative. At this time, we are going to continue with IV fluids, hydrate her, and wait for creatinine to improve. We are going to get a.m. labs. In relation to her hyperkalemia, just repeat labs in the morning and likely, her potassium will drop appropriately. Continue with Protonix daily. May need opinion from vibrator equipment tester. I will manage this appropriately. Continue with insulin sliding scale. Hold metformin. Get PT/OT eval. If she does well, likely discharge home tomorrow to be under observation. Job#: [id number] LALIT
--- NOTE | 2018-05-14 10:05 | NUR ---
Patient A/O X2, even respirations unlabored on 2L NC. Last BM was today, bowel sounds active. Tele #3 v-paced. Pacemaker dressing still in place at this time. Patient has twitching in the RUE. BLE edema 1+ pitting, CHUCKY 1+ nonpitting. Roche in place at this time due to patient unable to void on her own, pale yellow urine. L AC 20 gauge IV saline locked. Stage 2 pressure ulcer on sacrum. Heel protectors in place, call light in reach, will continue to monitor.
--- NOTE | 2018-05-14 11:10 | Progress Note ---
DATE: May 14, 2018 MEDICINE PROGRESS NOTE SUBJECTIVE: Patient is actually much more alert today on examination. Kidney function has been quiet and stable. She has really good urine output. Approximately, 2 L were removed. OBJECTIVE VITAL SIGNS: Temperature is 97.8, pulse 80, respiratory rate is 16, blood pressure 160/70, 97% on room air. Urine output is 2 L in 24 hours via Roche catheter. GENERAL: Not in acute distress. Alert and oriented times 3. Cooperative on examination. HEENT: Head is normocephalic and atraumatic. Eyes: Pupils equal, round and reactive to light bilaterally. Extraocular movements intact bilaterally. NECK: Supple. Good range of motion. Throat with no evidence of any erythema or exudates in the posterior pharynx. Has poor dentition. PULMONARY: Clear to auscultation bilaterally. No wheezing. No rales. No rhonchi. No crackles appreciated. CARDIOVASCULAR: Positive S1 and S2. No murmurs, rubs or gallops appreciated. ABDOMEN: Soft, nondistended and nontender to palpation. Bowel sounds present. MUSCULOSKELETAL: Strength is 5/5 throughout. No evidence of any muscle deficit on examination. No weakness appreciated. NEUROLOGICAL: Cranial nerves II-XII are grossly intact. No evidence of any neurological deficits on exam. SKIN: Intact. Warm to touch. Good cap refill. PSYCHIATRIC: Normal affect and mood. EXTREMITIES: No edema. Good range of motion throughout. LAB FINDINGS: Show white count is 8.9, hemoglobin 8, hematocrit is 23.5, and platelets of 297,000. Chemistry: Sodium 141, potassium 4, chloride 110, bicarb 21, anion gap of 14, BUN is 33, creatinine is 4.1. Yesterday, it was 4.18. Glucose is 76. Calcium is 8.1. Urinalysis was negative. MICROBIOLOGY: Blood and urine cultures were found to be negative. Chest x-ray showed mild cardiomegaly with increase in moderate pulmonary interstitial edema, left retrocardiac can have a similar appearance. IMPRESSION 1. Metabolic encephalopathy: Likely to be from acute kidney injury from underlying . 2. Anemia. 3. Acute kidney injury on concomitant chronic kidney disease, stage 3. 4. Lower extremity edema. 5. History of coronary artery disease. 6. Hypothyroidism. 7. Urinary retention. PLAN: At this time, her renal function has flattened out, and it is currently 4.1. Yesterday, it was 4.18, which I feel like now she has plateaued. In the next day or 2, she will likely downtrend hopefully. Her electrolytes are stable. There is no indication for SPOT CLEANER. I discussed this with the family at the bedside. Now, in relation to her twitching, I do not see that any more. She is alert. She is oriented. She is talking to me. She is much improved compared to yesterday. Once again, we are unable to perform an MRI of the brain due to the patient's pacemaker. She was started on IV antibiotics due to this fever of 101 two days ago. Her chest x-ray this morning shows evidence of pulmonary edema, which we will continue with IV diuretics. Her blood pressure is much improved. We also consulted urology for urinary retention. At this time, we are going to go head and defer dialysis as there is no acute indication for SPOT CLEANER at this time. If her labs continue to get worse tomorrow, will continue SPOT CLEANER. Job#: [id number] JAM
--- NOTE | 2018-05-14 11:27 | NUR ---
WOUND CARE CONSULTATION: INITIAL EVALUATION Patient admitted for Acute Renal Failure, CHF, Dehydration, DM type2,Confusion, Swelling to BLE. WBC8.9 HGB8 HCT23.5 NEUT%69.1 GLU76 ALB2.5 BLE Venous Studies Done - Results Pending 2* to Swelling. WC Consulted for Sacral stage II P.U. -Waldemar Score 15 -Alternating Pressure Mattress in Place - Moderate PUP Protocol Active PATIENT VISIT: - Patient in bed calm and in good spirits. - Family at bedside. - Patient verbalizes recurrent wound to her bottom. Unable to recall last time it happened but states it happens frequently. - Diapered - Noted left gluteal non blanchable redness - Mid gluteal fold ulcer, macerated periwound with 100% granulation present, likely due to pressure+shear friction. IMPRESSION: 1. Sacral - Stage II- P.U. P.O.A. 2. Left Gluteal - Stage I - P.U. - P.O.A. RECOMMENDATION: 1. Sacral - Stage II- P.U. POA - - Cleanse wound with normal saline and 4x4 gauze - Apply Venelex Ointment and Cover with Allevyn Sacrum Foam Dressing daily and PRN Soiling 2. Left Gluteal - Stage I - P.U. - POA - - Cleanse wound with NS and 4x4 gauze. - Apply Venelex and Cover with Allevyn Sacrum Foam Dressing Daily and PRN Soiling. 3. Turn and reposition every 2 hours. 4. Offload Heels with Pillows while in bed 5. Continue Moderate PUP Protocol. 6. Continue Alternating Pressure Air Mattress. Addendum: 05/14/18 at 1138 by Scottie Bernal RN Amended: Links added.
--- NOTE | 2018-05-14 11:41 | Diagnostic Imaging Report ---
EXAM: Renal Ultrasound INDICATION: REBECCA COMPARISON: CT Abdomen/Pelvis 04/29/2018. TECHNIQUE: Transverse and longitudinal images of the kidneys and bladder were obtained. FINDINGS: Right Kidney: Length: 11.0 x 5.2 x 5.0 cm Appearance: Normal echogenicity. Collecting system: No hydronephrosis Stones: None Cyst/Mass: None Left Kidney: Length: 9.6 x 5.1 x 4.3 cm Appearance: Normal echogenicity. Collecting system: No hydronephrosis Stones: None Cyst/Mass: None Bladder: Limited evaluation with Roche catheter in a decompressed bladder. Ureteral jets are not visualized. IMPRESSION: Unremarkable renal ultrasound. No evidence of hydronephrosis or stone. Signed by: Dr. Mishel Jain MD on 05/14/2018 11:37 AM
[2018-05-14] MEDS: FUROSEMIDE INJ 10 MG/ML 4 ML VIAL IV SCH ×2 (12:01→17:36)
--- NOTE | 2018-05-14 14:41 | NUR ---
Wound care performed. Sacrum cleaned with NS and 4x4 gauze, applied Venelex ointment and covered with Allevyn sacrum foam dressing.
[2018-05-14 17:26] LABS: ANION GAP 15.1 mmol/L (8-16); CALCIUM 8.6 mg/dL (8.4-10.2); CREATININE, SERUM 4.1 mg/dL (0.57-1.11); POTASSIUM 4.1 mmol/L (3.5-5.1)
--- NOTE | 2018-05-14 20:36 | NUR ---
RECEIVED PT IN BED AOX3 .RESPIRATIONS ARE EVEN AND UNLABORED ..DENIES PAIN CALL LIGHT WITH IN REACH .FAMILY AT THE BEDSIDE .CONTINUE TO MONITOR
[2018-05-14] MEDS: ATORVASTATIN 20 MG TAB PO SCH (21:00)
[2018-05-15] VITALS (8 sets, daily range): BP systolic 133–168; BP diastolic 62–70
[2018-05-15] MEDS: CEFEPIME 1GM/NS 0.9% 50 ML 50 ML IV SCH ×2 (00:45→12:55)
[2018-05-15] MEDS: LEVOTHYROXINE SODIUM 100 MCG TAB PO SCH (06:11)
[2018-05-15] MEDS: FUROSEMIDE INJ 10 MG/ML 4 ML VIAL IV SCH ×2 (06:11)
[2018-05-15] MEDS: LEVOTHYROXINE SODIUM 75 MCG TAB PO SCH (06:11)
[2018-05-15 06:14] LABS: ANION GAP 15.2 mmol/L (8-16); CALCIUM 8.8 mg/dL (8.4-10.2); CREATININE, SERUM 4.21 mg/dL (0.57-1.11); POTASSIUM 4.2 mmol/L (3.5-5.1)
--- NOTE | 2018-05-15 06:23 | NUR ---
PT RESTED DURING THE NIGHT .NO ACUTE DISTRESS NOTED .CALL LIGHT WITH IN REACH
[2018-05-15 06:29] LABS: BASOPHILS % 0.5 % (0.0-1.0); EOSINOPHILS # (AUTO) 0.2 (0.0-0.4); EOSINOPHILS % 2.8 % (0.0-6.0); HEMATOCRIT 24.7 % (34.2-44.1); HEMOGLOBIN 8.1 g/dL (12.0-16.0); LYMPHOCYTES # (AUTO) 1.7 (1.0-3.2); LYMPHOCYTES % 20.8 % (18.0-39.1); MEAN CORPUSCULAR HGB CONC 32.8 g/dL (31-35); MEAN CORPUSCULAR VOLUME 97.6 fL (81-99); MONOCYTES # (AUTO) 1.1 (0.2-0.8); MONOCYTES % 13.7 % (4.4-11.3); PLATELET COUNT 349 x10e3/uL (140-360); RED BLOOD COUNT 2.53 x10e6/uL (3.6-5.1); RED CELL DISTRIBUTION WIDTH 13.5 % (11.7-14.4)
--- NOTE | 2018-05-15 07:07 | NUR ---
REPORT GIVEN TO THE ON COMING NURSE
--- NOTE | 2018-05-15 07:22 | NUR ---
Received patient and walking rounds complete. Patient awake in bed at this time, no signs of distress. Side rails up x2, bed in lowest position, wheels locked, call light in reach. Spouse at bedside, will continue to monitor.
[2018-05-15] MEDS: PANTOPRAZOLE SOD 40 MG TABEC PO SCH (08:04)
[2018-05-15] MEDS: SUCRALFATE 1 GM/10 ML SUSP NG SCH ×4 (08:04→21:30)
[2018-05-15] MEDS: NIFEDIPINE CR 30 MG TAB PO SCH (08:05)
[2018-05-15] MEDS: CARVEDILOL 12.5 MG TAB PO SCH ×2 (08:05→16:34)
--- NOTE | 2018-05-15 09:30 | NUR ---
Patient A/O X2, even respirations on 2LNC. Bowel sounds active. Tele #3 paced rhythm. Roche in place with yellow urine. BUE/BLE 1+ non-pitting edema. Stage 2 pressure ulcer on sacrum, sacrum foam pad over area. Left AC 20 gauge SL. Patient needs assistance with ambulation. Heel protectors in place. Will continue to monitor.
[2018-05-15] MEDS ORDERED: FUROSEMIDE INJ 10 MG/ML 2 ML VIAL IV ONE (11:00)
[2018-05-15] MEDS: BALSAM PERU/CASTOR OIL 60 GM OINT...G. TP SCH (11:07)
--- NOTE | 2018-05-15 11:17 | NUR ---
Paged Dr. Young regarding consult.
--- NOTE | 2018-05-15 12:00 | Progress Note ---
DATE: May 15, 2018 MEDICINE PROGRESS NOTE SUBJECTIVE: Patient is alert and oriented x4 on examination. She understands what we are talking about, though the daughter states that she does not. She looks more alert today than any other day. She is tolerating the diet well. Her renal function did not improve at all. OBJECTIVE VITAL SIGNS: Temperature is 98.7, pulse 65, respiratory rate 18, blood pressure 151/67, pulse ox 100% on 2 L nasal cannula. LAB FINDINGS: White count 8, hemoglobin 8.1, hematocrit 25, platelets 349. Coagulation: PT 12.9, INR 0.89, PTT 35. Chemistries: Sodium 141, potassium 4.2, chloride 107, bicarb 23, anion gap 15, BUN 36, creatinine 4.2. Initially, creatinine was 4.1. MICROBIOLOGY: Blood and urine cultures were found to be negative. PHYSICAL EXAMINATION GENERAL: Not in acute distress. Alert and oriented x3. Cooperative on examination. HEENT: Head is normocephalic and atraumatic. Eyes: Pupils are equal, round and reactive to light bilaterally. Extraocular movements intact bilaterally. NECK: Supple. Good range of motion. Throat with no evidence of any erythema or exudates in the posterior pharynx. Has poor dentition. PULMONARY: Clear to auscultation bilaterally. No wheezing. No rales. No rhonchi. No crackles appreciated. CARDIOVASCULAR: Positive S1 and S2. No murmurs, rubs or gallops appreciated. ABDOMEN: Soft, nondistended and nontender to palpation. Bowel sounds present. MUSCULOSKELETAL: Strength is 5/5 throughout. No evidence of any musculoskeletal deficit on examination. No weakness appreciated. NEUROLOGICAL: Cranial nerves II through XII are grossly intact. No evidence of any neurological deficits on exam. SKIN: Intact. Warm to touch. Good cap refill. PSYCHIATRIC: Normal affect and mood. EXTREMITIES: No edema. Good range of motion throughout. IMPRESSION 1. Metabolic encephalopathy seems to have resolved. She is alert and oriented x4 on examination. 2. Anemia, stable. 3. Acute kidney injury on chronic kidney disease, stage 3. 4. Lower extremity edema. 5. History of coronary artery disease. 6. Hypothyroidism. 7. Urinary retention. PLAN: At this time, I feel like her encephalopathy is improved. She is back to normal based on my examination. She is alert and oriented x4. In relation to her kidney function, her creatinine is 4.2, which has essentially stayed flat and plateaued over the last several days. Her electrolytes are stable. At this time, I do not feel like there is a clear indication for renal replacement therapy at this time, but the family seems that they want dialysis. They feel like she will recover much quicker. I discussed the risks and benefits involved with hemodialysis. At this time, they want to think about it and tell me tomorrow what the next plan of care is from their standpoint. At this time, the creatinine of 4.2, though not normal, has flattened out over the last several readings. She will need a renal biopsy, and we discussed this with them at bedside as well. They will give me the final decision tomorrow in relation to renal biopsy and hemodialysis. I do not know truly the etiology of what happened over the last 2 weeks and why her kidney function elevated tremendously but has been flat and has not increased any more. Her cultures have all been negative. Urine and blood cultures are negative. From a urinary retention standpoint, urology evaluated the patient and recommends to continue with the Roche and discharge with the Roche. Her other labs look to be stable with no other issues. Her renal ultrasound has been reviewed. We will get a.m. labs. I discussed the case with the family as well as with the nursing staff taking care of the patient. Job#: [id number]
--- NOTE | 2018-05-15 12:00 | NUR ---
Cleaned sacrum with NS and gauze, applied Venelex ointment, covered with sacrum foam pad.
--- NOTE | 2018-05-15 12:22 | NUR ---
Report given to nurse receiving patient in room 288.
--- NOTE | 2018-05-15 12:25 | NUR ---
Patient no longer moving to room 288. Staying in room 101.
--- NOTE | 2018-05-15 15:54 | NUR ---
Nutrition Intervention Note RD Recommendation(s) for Physician: - Continue Renal diet as tolerated - Recommend Renal MVI and Vitamin C to promote wound healing Plan of Care: RD following, monitoring for tolerance and adequacy Nutrition reason for involvement: Nutrition Risk Trigger- DX RD Assessment 05/15: 72 YOF admitted for ARF and AMS, pt seen today per dx screen. 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 Pt denies any N/V/C/D. Pt reports UBW range of 174-180#, no wt loss noted. Pt discussed during am rounds, possible need to begin HD with decision per MD pending. Will provide diet education for renal diet on dialysis as needed. Pt with PU's upon admit. Chart reviewed. Will monitor and continue to follow. Principal Problems/Diagnoses: Acute renal failure, CHF, confusion PMH: CKD III, SSS, pacemaker GI: LBM 05/15 Skin: WDL Labs: 05/15: BUN 36. Cr 4.21, GFR 10 Meds: abx, carafate, protonix, synthroid, lipitor, lasix, zofran Ht: 64 lb Wt: 182 lb BMI: 31.3 IBW: 120 lb Malnutrition Evaluation (05/15/18) The patient does not meet criteria for a specified degree of malnutrition at this time. Will re-evaluate at follow-up as appropriate. Nutrition Prescription (Diet Order): Renal Estimated Nutritional Needs: 4692-4623 calories/day (22-25 kcal/kg IBW) 33-65 g protein/day (0.6-1.2 g pro/kg IBW) Diet Adequacy: Meeting calorie needs, Meeting protein needs Diet Education Needs Assessment: Diet education not indicated, patient on temporary/transition diet. Will monitor diet education needs. Nutrition Care Level: Mod Nutrition Diagnosis: Pt requiring increased protein, vitamin, and mineral needs related to skin integrity and evidenced by stage II sacral PU and stage I L gluteal PU. Goal: Patient will meet 75-100% of estimated needs by follow up Progress: N/A Interventions: Mineral modified diet, Multivitamin/mineral supplement therapy Monitoring/Evaluation: Total energy intake, Total protein intake, Formula/Solution, Modified diet Signed: Kasey Grossman RD, LD, [facility]
--- NOTE | 2018-05-15 16:17 | NUR ---
CASE MANAGEMENT INITIAL ASSESSMENT Plumber Supervisor to bedside to discuss plan of care with patient/family. CM/SW role and care transitions discussed. Anticipated discharge plan discussed along with duration of care. CM/SW discussed patients right to make decisions in care. CM/SW work hours given. Pt AOx2, confused. at bedside. CM spoke with pt's . Patient lives: with Rafy Admit/Transfer: thru ED Hospital/ER visits since last admit: was discharged from this facility May 05, 2018; returned to ED due to disorientation and fall; was not able to get pt up, called 911 POA/Emergency contact: Rafy Mendez [phone] Current/Previous Home Health: none PCP/Follow-up Care: Dr. Lees / Dr. Young for cardiology. Mr. Mendez states his has an appointment with Dr. Young on May 24. Current/Previous DME: has walker, wheelchair, shower chair. Medications (referring to index hospitalization or the first time you were in the hospital) a. Were changes made in your medications when you were in the hospital on [date of index hospitalization]? yes b. Did you understand the changes? "not really"; stated he was given a list of what his was already on and prescriptions for new medications c. Were you able to obtain your new medications right away? yes d. Were you able to take your medications like the doctor wanted you to? yes e. Did the hospital give you an accurate, easy to understand list of medications when you left? yes Scale of 1-10 how comfortable does patient feel with disease management in outpatient settin Other Services: none Employment Status: retired Areas of Concerns: CHF, increased confusion, medications Referral Needs: may need SNF vs HH; PT ordered to eval / treat Education Needs: medication, medical management IMM/MUKHERJEE given and signed (if applicable): none at this time Goal for discharge: home with home health CM/SW left business card at the bedside with contact information. Name and number was also written on the patients whiteboard. Patient verbalized understanding of discussion. CM will follow-up with ongoing discharge and transition of care needs.
--- NOTE | 2018-05-15 20:00 | NUR ---
ASSESSMENT DONE.NO RESP.DISTRESS.NO PAIN VOICED.REPOSITIONED.BED LOCKED AND IN LOWEST POSITION.PHONE AND CALL LIGHT WITHIN REACH.INSTRUCTED TO CALL FOR ASSISTANCE NEEDED.KEEP MONITOR THE PT.
[2018-05-15] MEDS: ATORVASTATIN 20 MG TAB PO SCH (21:30)
[2018-05-16] VITALS (8 sets, daily range): BP systolic 130–162; BP diastolic 63–79
[2018-05-16] MEDS: CEFEPIME 1GM/NS 0.9% 50 ML 50 ML IV SCH ×2 (00:27→13:25)
[2018-05-16 05:39] LABS: BASOPHILS # (AUTO) 0.1 (0.0-0.1); BASOPHILS % 0.6 % (0.0-1.0); EOSINOPHILS # (AUTO) 0.2 (0.0-0.4); EOSINOPHILS % 1.8 % (0.0-6.0); HEMATOCRIT 26.8 % (34.2-44.1); HEMOGLOBIN 8.7 g/dL (12.0-16.0); LYMPHOCYTES # (AUTO) 1.3 (1.0-3.2); LYMPHOCYTES % 11.9 % (18.0-39.1); MEAN CORPUSCULAR HEMOGLOBIN 31.2 pg (28-32); MEAN CORPUSCULAR HGB CONC 32.5 g/dL (31-35); MEAN CORPUSCULAR VOLUME 96.1 fL (81-99); MONOCYTES # (AUTO) 1.6 (0.2-0.8); MONOCYTES % 14.9 % (4.4-11.3); NEUTROPHILS # (AUTO) 7.4 (2.1-6.9); NEUTROPHILS % 70.4 % (38.7-80.0); PLATELET COUNT 326 x10e3/uL (140-360); RED BLOOD COUNT 2.79 x10e6/uL (3.6-5.1); RED CELL DISTRIBUTION WIDTH 13.7 % (11.7-14.4)
[2018-05-16] MEDS: LEVOTHYROXINE SODIUM 100 MCG TAB PO SCH (05:55)
[2018-05-16 06:02] LABS: ANION GAP 15.4 mmol/L (8-16); CREATININE, SERUM 4.06 mg/dL (0.57-1.11); POTASSIUM 3.4 mmol/L (3.5-5.1)
--- NOTE | 2018-05-16 06:50 | NUR ---
Report given to the oncoming rn.walking rounds done.stable condition.
[2018-05-16 07:03] LABS: EOSINOPHILS % (MANUAL) 1 % (0-7); HYPOCHROMASIA MODERATE; LYMPHOCYTES % (MANUAL) 17 % (19-48); MONOCYTES % (MANUAL) 12 % (3.4-9.0); NEUTROPHILS % (MANUAL) 69 % (40-74); PLATELET ESTIMATE ADEQUATE; PLATELET MORPHOLOGY COMMENT NORMAL; RBC MORPHOLOGY COMMENT NORMAL
[2018-05-16] MEDS: NIFEDIPINE CR 30 MG TAB PO SCH (09:27)
[2018-05-16] MEDS: PANTOPRAZOLE SOD 40 MG TABEC PO SCH (09:27)
[2018-05-16] MEDS: CARVEDILOL 12.5 MG TAB PO SCH ×2 (09:27→17:09)
[2018-05-16] MEDS: BALSAM PERU/CASTOR OIL 60 GM OINT...G. TP SCH (09:27)
[2018-05-16] MEDS: SUCRALFATE 1 GM/10 ML SUSP NG SCH ×4 (09:27→20:12)
[2018-05-16] MEDS ORDERED: POTASSIUM CHLORIDE 20 MEQ TAB CR PO STA (10:20)
[2018-05-16] MEDS ORDERED: FUROSEMIDE INJ 10 MG/ML 4 ML VIAL IV ONE (10:30)
--- NOTE | 2018-05-16 10:49 | Progress Note ---
DATE: May 16, 2018 MEDICINE PROGRESS NOTE SUBJECTIVE: Patient is actually doing well. She is alert and oriented x4. She did have left upper extremity swelling in which a prelim result showed it being negative. I discussed overall plan of care and lab results with the family. At this time, the family wants to go ahead and do hemodialysis. I discussed with them that the creatinine did slightly improve but has been flat over the last several days as well. She is making good urine output. Her electrolytes are stable. At this time, it seems like the family wants hemodialysis and I discussed the risks and benefits involved in hemodialysis and they verbalized understanding. OBJECTIVE VITAL SIGNS: Temperature is 98.5, pulse 73, respiratory rate is 20, blood pressure 160/70, pulse ox is 97% on 2 liters nasal cannula. LAB FINDINGS: White count 10.4, hemoglobin 8.7, hematocrit is 27, platelets are 326. Chemistries: Sodium 141, potassium 3.4, chloride 105, bicarb 22, anion gap of 15, BUN 35, creatinine is 4.06, yesterday was 4.21, calcium is 9. Urinalysis and blood cultures were negative. PHYSICAL EXAMINATION GENERAL: Not in acute distress. Alert and oriented x3. Cooperative on examination. HEENT: Head is normocephalic and atraumatic. Eyes: Pupils are equal, round and reactive to light bilaterally. Extraocular movements intact bilaterally. NECK: Supple. Good range of motion. Throat with no evidence of any erythema or exudates in the posterior pharynx. Has poor dentition. PULMONARY: Clear to auscultation bilaterally. No wheezing. No rales. No rhonchi. No crackles appreciated. CARDIOVASCULAR: Positive S1 and S2. No murmurs, rubs or gallops appreciated. ABDOMEN: Soft, nondistended and nontender to palpation. Bowel sounds present. MUSCULOSKELETAL: Strength is 5/5 throughout. No evidence of any musculoskeletal deficit on examination. No weakness appreciated. NEUROLOGICAL: Cranial nerves II through XII are grossly intact. No evidence of any neurological deficits on exam. SKIN: Intact. Warm to touch. Good cap refill. PSYCHIATRIC: Normal affect and mood. EXTREMITIES: No edema. Good range of motion throughout. IMPRESSIONS 1. Metabolic encephalopathy, all resolved. 2. Anemia, resolved. 3. Acute kidney injury on chronic kidney disease, stage 3, improving. 4. Lower extremity edema. 5. History of coronary artery disease. 6. Hypothyroidism. 7. Urinary retention. PLAN: At this time, in terms of encephalopathy, it resolved. Her anemia is stable. Her kidney function is slightly decreased which is very reassuring and encouraging. Good urine output. Will replace potassium. Family at bedside truly want hemodialysis and we feel like that that is the best option for her. I discussed the risks and benefits with the family and that her labs have actually improved slightly and that her electrolytes are stable. They are still insisting on hemodialysis. At this time, I will go ahead and order an IR consult to put a temporary dialysis catheter and begin one treatment of hemodialysis later today. Discussed with dialysis nurse and floor nurse. In relation to her edema, she will get a dose of Lasix 40 mg IV x1 and also will try to remove more fluid during dialysis today. In relation to her urinary retention, urology recommends outpatient followup and continue with the Roche upon discharge. Otherwise, patient is stable, will continue the same plan of care and will monitor closely. Job#: [id number] ALEXANDRA
[2018-05-16] MEDS ORDERED: SODIUM CHLORIDE 0.9% 250ML 250 ML ONE (11:59)
--- NOTE | 2018-05-16 12:06 | NUR ---
Taken for procedure. No s/s of acute distress noted. Spoke with Marianne from [facility] and notified of new HD patient.
--- NOTE | 2018-05-16 13:15 | NUR ---
Back from procedure. Right IJ HD cath noted. Dressing clean, dry, and intact. Instructed patient to use call light for assistance.
--- NOTE | 2018-05-16 13:34 | Diagnostic Imaging Report ---
EXAMINATION: CHEST XRAY LINE PLACEMENT INDICATION: Status post hemodialysis catheter placement. COMPARISON: Chest radiograph 05/14/2018. FINDINGS: TUBES and LINES: Interval placement of right IJ non-tunneled hemodialysis catheter with tip in the mid SVC. Left-sided pacemaker with leads in unchanged positions. LUNGS: Interval resolution of mild pulmonary interstitial edema. Mild central vascular congestion. Improved left retrocardiac opacity. PLEURA: Interval resolution of small left and trace right pleural effusion. No evidence of pneumothorax. HEART AND MEDIASTINUM: Unchanged mild enlargement of the cardiomediastinal silhouette. BONES AND SOFT TISSUES: No acute osseous abnormality. UPPER ABDOMEN: No free air under the diaphragm. IMPRESSION: Right IJ non-tunneled hemodialysis catheter terminates in the mid SVC. No evidence of pneumothorax. Interval resolution of mild pulmonary interstitial edema and small left and trace right pleural effusion. Improved left retrocardiac opacity, likely atelectasis. Signed by: Dr. Mishel Jain MD on 05/16/2018 1:31 PM
[2018-05-16] MEDS ORDERED: SODIUM CHLORIDE 0.9% 1000ML 2,000 ML IV PRN (16:15)
[2018-05-16] MEDS: ACETAMINOPHEN 325 MG TAB PO PRN (17:09)
--- NOTE | 2018-05-16 19:25 | NUR ---
Report given to oncoming nurse of patient's status. No s/s of acute distress noted.
--- NOTE | 2018-05-16 19:36 | Progress Note ---
DATE: May 16, 2018 CARDIOLOGY PROGRESS NOTE SUBJECTIVE: Started on temporary dialysis today. Had pacemaker interrogation. Showed normal function. Denies any chest pain, shortness of breath. Reports some pain in her right arm with dialysis. OBJECTIVE VITAL SIGNS: Temperature 98.5, pulse 73, respiratory rate 20, blood pressure 162/70, satting 97% on nasal cannula. GENERAL: Elderly white female, obese, well developed, well nourished, no acute distress. CARDIOVASCULAR: Regular rate and rhythm. No murmurs, rubs or gallops. Palpable carotid pulses. Palpable radial pulses. LUNGS: Clear to auscultation bilaterally. Diminished breath sounds at the bases. ABDOMEN: Obese, soft, nontender, nondistended. NEURO AND PSYCH: Alert and oriented times 2. Slightly confused affect. INPATIENT MEDICATIONS: Reviewed. LABORATORY DATA: Reviewed. IMAGING DATA: Reviewed. ASSESSMENT 1. 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 2. Chronic systolic heart failure with ejection fraction of 40% to 45%. 3. Hypertension. 4. Hyperlipidemia. 5. Acute renal failure. PLAN: Temporary dialysis initiated per nephrology. Pacemaker function is normal. Hemoglobin remains stable. Had recent GI bleeding. Still needs ischemic workup for her cardiomyopathy; however, given recent acute kidney injury and recent GI bleeding and no unstable symptoms, will defer this for future admission unless patient's clinical status changes. Please continue optimal medical therapy and risk factor control. Thank you for this consult. Will continue to follow with you. Job#: [id number]
--- NOTE | 2018-05-16 19:38 | NUR ---
Received change of shift report from AM nurse. Walking rounds completed.
[2018-05-16] MEDS: ATORVASTATIN 20 MG TAB PO SCH (20:12)
--- NOTE | 2018-05-16 21:00 | NUR ---
Dialysis completed. Patient states she feel very good. Dialysis pulled off 2,000. Tele shows pacing. IV to left AC dry and intact. 18 F puente intact.
[2018-05-17] VITALS (7 sets, daily range): BP systolic 111–146; BP diastolic 58–66
[2018-05-17] MEDS: CEFEPIME 1GM/NS 0.9% 50 ML 50 ML IV SCH ×2 (00:15→11:23)
[2018-05-17] MEDS: ACETAMINOPHEN 325 MG TAB PO PRN (04:01)
[2018-05-17] MEDS: LEVOTHYROXINE SODIUM 100 MCG TAB PO SCH (06:00)
[2018-05-17 06:12] LABS: BASOPHILS # (AUTO) 0.1 (0.0-0.1); BASOPHILS % 0.7 % (0.0-1.0); EOSINOPHILS # (AUTO) 0.1 (0.0-0.4); EOSINOPHILS % 1.6 % (0.0-6.0); HEMATOCRIT 25.8 % (34.2-44.1); HEMOGLOBIN 8.3 g/dL (12.0-16.0); LYMPHOCYTES # (AUTO) 1.4 (1.0-3.2); LYMPHOCYTES % 16.2 % (18.0-39.1); MEAN CORPUSCULAR HGB CONC 32.2 g/dL (31-35); MEAN CORPUSCULAR VOLUME 96.3 fL (81-99); MONOCYTES # (AUTO) 1.2 (0.2-0.8); MONOCYTES % 13.6 % (4.4-11.3); NEUTROPHILS # (AUTO) 5.8 (2.1-6.9); NEUTROPHILS % 67.6 % (38.7-80.0); PLATELET COUNT 285 x10e3/uL (140-360); RED BLOOD COUNT 2.68 x10e6/uL (3.6-5.1); RED CELL DISTRIBUTION WIDTH 13.8 % (11.7-14.4)
[2018-05-17 06:32] LABS: ANION GAP 14.5 mmol/L (8-16); CALCIUM 8.5 mg/dL (8.4-10.2); CREATININE, SERUM 2.63 mg/dL (0.57-1.11); POTASSIUM 3.5 mmol/L (3.5-5.1)
[2018-05-17] MEDS: SUCRALFATE 1 GM/10 ML SUSP NG SCH ×4 (08:33→20:50)
[2018-05-17] MEDS: PANTOPRAZOLE SOD 40 MG TABEC PO SCH (08:33)
[2018-05-17] MEDS: CARVEDILOL 12.5 MG TAB PO SCH ×2 (08:34→16:36)
[2018-05-17] MEDS: NIFEDIPINE CR 30 MG TAB PO SCH (08:34)
[2018-05-17] MEDS: BALSAM PERU/CASTOR OIL 60 GM OINT...G. TP SCH (08:34)
[2018-05-17] MEDS: ONDANSETRON HCL INJ 2MG/ML 2ML 2 MG/ML VIAL IV PRN (09:51)
--- NOTE | 2018-05-17 10:10 | NUR ---
BIJU wrap to Left upper extremity placed as ordered. Left arm elevated.
--- NOTE | 2018-05-17 11:35 | Progress Note ---
DATE: May 17, 2018 MEDICINE PROGRESS NOTE SUBJECTIVE: Patient is doing well today. She tolerated dialysis treatment well yesterday with no issues. OBJECTIVE VITAL SIGNS: Temperature is 98.4, pulse 71, respiratory rate 20, blood pressure 139/63, pulse ox is 96% on 2 liters nasal cannula. She had 2 liters ultrafiltration on dialysis yesterday. Had also good urine output. LABS: White count 8.6, hemoglobin 8.3, hematocrit 25.8, platelets 285. Coagulation: PT 12, INR 0.89, PTT 35. Chemistries: Sodium 140, potassium 3.5, chloride 104, bicarb 25, anion gap 14, BUN 22, creatinine 2.6. Glucose is 96. Calcium is 8.5. Urinalysis and urine culture are negative. Blood cultures are negative. PHYSICAL EXAMINATION GENERAL: Not in acute distress. Alert and oriented x3. Cooperative on examination. HEENT: Head is normocephalic and atraumatic. Eyes: Pupils are equal and reactive to light bilaterally. Extraocular movements are intact bilaterally. NECK: Supple. Good range of motion. Throat with no evidence of any erythema or exudates in the posterior pharynx. Has poor dentition. PULMONARY: Clear to auscultation bilaterally. No wheezing. No rales. No rhonchi. No crackles appreciated. CARDIOVASCULAR: Positive S1 and S2. No murmurs, rubs or gallops appreciated. ABDOMEN: Soft, nondistended and nontender to palpation. Bowel sounds present. MUSCULOSKELETAL: Strength is 5/5 throughout. No evidence of any musculoskeletal deficit on examination. No weakness appreciated. NEUROLOGICAL: Cranial nerves II through XII are grossly intact. No evidence of any neurological deficits on exam. SKIN: Intact. Warm to touch. Good cap refill. PSYCHIATRIC: Normal affect and mood. EXTREMITIES: No edema. Good range of motion throughout. IMPRESSIONS 1. Metabolic encephalopathy, all resolved. 2. Anemia, resolved. 3. Acute kidney injury on chronic kidney disease, stage 3, improving. 4. Lower extremity and upper extremity edema. 5. History of coronary artery disease. 6. Hypothyroidism. 7. Urinary retention. PLAN 1. Will continue with hold on discharge per urology's recommendations. The patient had dialysis yesterday. Will repeat HD today. Will use ultrafiltration. 2. The patient's encephalopathy has all resolved. She is back to baseline. 3. She still has a separate posterior swelling pattern. Negative venous Doppler. It seems like the etiology is just swelling. We are going to have some increased wraps to wrap up the left upper extremity which I discussed with the nurse. Cardiology evaluated and recommended just continuing medical management. 4. Urinary retention. Urology recommends outpatient follow up with them and continue the Roche on discharge. Job#: [id number]
[2018-05-17] MEDS ORDERED: SODIUM CHLORIDE 0.9% 1000ML 2,000 ML IV PRN (16:30)
[2018-05-17] MEDS ORDERED: HEPARIN SOD (PORCINE) 1000 UNIT/ML SDV IV PRN (16:30)
[2018-05-17] MEDS ORDERED: HYDROCODONE/APAP 5MG-325MG TAB PO ONE (16:30)
--- NOTE | 2018-05-17 19:10 | NUR ---
Walking rounds done. Having HD at this time. No s/s of acute distress noted.
--- NOTE | 2018-05-17 19:47 | NUR ---
Received change of shift report from Am nurse. Walking rounds completed.
[2018-05-17] MEDS: ATORVASTATIN 20 MG TAB PO SCH (20:50)
--- NOTE | 2018-05-17 22:05 | NUR ---
Patient receiving dialysis. Per nurse 2,000cc taken off. Patient doing well. AAOx3. Patient denies pain or discomfort at this time. BS at 107 with no insulin required. IV and tunnel cath. intact, and patent.
[2018-05-18] VITALS: BP 133/60
[2018-05-18] MEDS: CEFEPIME 1GM/NS 0.9% 50 ML 50 ML IV SCH ×2 (00:12→16:47)
--- NOTE | 2018-05-18 00:45 | Progress Note ---
DATE: CARDIOLOGY PROGRESS NOTE SUBJECTIVE: Patient currently receiving dialysis. Denies any chest pain. Pacemaker interrogation recently showed normal function. OBJECTIVE VITAL SIGNS: Temperature 99.1, heart rate 68, respirations are 20, blood pressure is 141/64, and saturation 97% on 2 L nasal cannula. GENERAL: She is a well appearing, elderly woman, lying comfortably in bed, no apparent distress. LUNGS: Diminished breath sounds in the bilateral bases. CARDIOVASCULAR: Regular rate and rhythm. ABDOMEN: Soft, nontender. EXTREMITIES: Trace edema. LABORATORY DATA: Hemoglobin 8.3. Telemetry monitoring reviewed. IMPRESSIONS 1. High grade atrioventricular block with symptomatic bradycardia, status post pacemaker placement. 2. Chronic systolic congestive heart failure, ejection fraction of 40% to 45%. 3. Hypertension. 4. Hyperlipidemia. 5. Acute renal failure, on dialysis. 6. Coronary artery disease, status post prior percutaneous coronary intervention. RECOMMENDATIONS 1. Restart Plavix for her recent placed stents. She has bifurcating LAD diagonal stents. 2. Further ischemic workup can be done as an outpatient basis. 3. Patient evidently had recent GI bleeding; however, hemoglobin remained stabe. If okay with GI, would restart Plavix. Job#: [id number] CF
[2018-05-18] MEDS: LEVOTHYROXINE SODIUM 100 MCG TAB PO SCH (05:29)
[2018-05-18 05:58] LABS: BASOPHILS # (AUTO) 0.1 (0.0-0.1); BASOPHILS % 0.7 % (0.0-1.0); EOSINOPHILS # (AUTO) 0.2 (0.0-0.4); EOSINOPHILS % 2.4 % (0.0-6.0); HEMATOCRIT 26.5 % (34.2-44.1); HEMOGLOBIN 8.7 g/dL (12.0-16.0); LYMPHOCYTES # (AUTO) 1.7 (1.0-3.2); LYMPHOCYTES % 19.3 % (18.0-39.1); MEAN CORPUSCULAR HEMOGLOBIN 31.6 pg (28-32); MEAN CORPUSCULAR HGB CONC 32.8 g/dL (31-35); MEAN CORPUSCULAR VOLUME 96.4 fL (81-99); MONOCYTES # (AUTO) 1.2 (0.2-0.8); MONOCYTES % 14.4 % (4.4-11.3); NEUTROPHILS # (AUTO) 5.4 (2.1-6.9); NEUTROPHILS % 62.9 % (38.7-80.0); PLATELET COUNT 327 x10e3/uL (140-360); RED BLOOD COUNT 2.75 x10e6/uL (3.6-5.1); RED CELL DISTRIBUTION WIDTH 13.6 % (11.7-14.4)
[2018-05-18 06:20] LABS: ANION GAP 13.9 mmol/L (8-16); CALCIUM 9.1 mg/dL (8.4-10.2); CREATININE, SERUM 2.03 mg/dL (0.57-1.11); POTASSIUM 3.9 mmol/L (3.5-5.1)
[2018-05-18 07:08] LABS: HYPOCHROMASIA SLIGHT; PLATELET ESTIMATE ADEQUATE; PLATELET MORPHOLOGY COMMENT NORMAL; POIKILOCYTOSIS SLIGHT; RBC MORPHOLOGY COMMENT NORMAL
--- NOTE | 2018-05-18 07:37 | Diagnostic Imaging Report ---
Procedure: Right internal jugular non-tunneled hemodialysis catheter placement with ultrasound guidance insole toe snipping machine operator: Dr. Mishel Jain Pre-operative diagnosis: Requiring HD access. Post-operative diagnosis: Status post HD access placement Sedation: Local Additional Medications: Lidocaine 1% for local anesthesia Estimated blood loss: None Specimens: None Implants: 13 Fr x 15 cm Trialysis non-tunneled hemodialysis catheter TECHNIQUE/FINDINGS: Informed consent was obtained from the patient and documented in the medical record after discussion of risks and benefits. The patient was placed in the supine position. Preliminary sonographic evaluation of the right neck confirmed a patent and compressible right internal jugular vein. Incidental note is made of a right neck nodule measuring 2.1 cm, partially visualized and may be within the thyroid gland. The neck was then prepped and draped in a standard sterile fashion. Subsequently, 1% lidocaine was infiltrated into the skin and subcutaneous tissues for local anesthesia. Then under continuous sonographic guidance, a 21 gauge needle was advanced into the right internal jugular vein and an .018'' wire was placed. A 5 Fr micropuncture sheath was placed and the existing wire was exchanged for an .035'' Amplatz wire. The tract was sequentially dilated. Then, a 13 Fr x 15 cm Trialysis triple lumen non-tunneled hemodialysis catheter was advanced. The wire was then removed. Each lumen was tested and showed adequate bidirectional flow. The catheter was secured to the skin with Monocryl, flushed with saline, and covered by a sterile dressing. No evidence of immediate complication. IMPRESSION: Placement of a right IJ non-tunneled triple lumen hemodialysis catheter with ultrasound guidance as above. Indeterminate partially seen nodule in the right neck which may represent a thyroid nodule or possibly a lymph node. Dedicated neck/thyroid ultrasound is recommended for further evaluation. Per patient request, findings were discussed with the patient on 05/16/2018 at the time of the procedure. The patient understood the findings and recommendations. Signed by: Dr. Mishel Jain MD on 05/18/2018 7:34 AM
[2018-05-18 07:57] VITALS: BP 163/71
[2018-05-18] MEDS: SUCRALFATE 1 GM/10 ML SUSP NG SCH ×4 (08:30→22:13)
--- NOTE | 2018-05-18 09:09 | Progress Note ---
DATE: CARDIOVASCULAR PROGRESS NOTE SUBJECTIVE: Patient was found sleeping. Denies any events or chest pain. Shortness of breath is minimal. OBJECTIVE VITAL SIGNS: Temperature 98.3. Heart rate is 73. Respirations are 17. Blood pressure is 163/71. Oxygen saturation 98% on 2 liters nasal cannula. GENERAL: She is an obese woman in no apparent distress, lying comfortably in bed. CARDIOVASCULAR: Regular rate and rhythm. LUNGS: Diminished breath sounds in bilateral bases. ABDOMEN: Soft and nontender. EXTREMITIES: Trace edema. CARDIOVASCULAR MEDICATIONS: Reviewed. LABORATORY DATA: Reviewed. Hemoglobin 8.7. Creatinine 2.03. TELEMETRY MONITORING: Revealed ventricular paced rhythm. IMPRESSION 1. Symptomatic bradycardia status post pacemaker placement. 2. Chronic systolic congestive heart failure with ejection fraction of 40% to 45%. 3. Coronary artery disease status post prior percutaneous coronary intervention. 4. Hypertension. 5. Hyperlipidemia. 6. Acute renal failure on hemodialysis. PLAN: Would recommend reinitiation of dual antiplatelet regimen with clopidogrel and aspirin given her recently placed bifurcating LAD and diagonal stents. Evidently this was stopped due to question of a gastrointestinal bleed. If okay with primary team and gastroenterology, start her Plavix back. Further ischemic workup can be done as an outpatient basis. Continue current cardiovascular medications. Her BIJU inhibitor is being held due to acute renal failure. May consider reinitiating this as an outpatient. Job#: [id number]
[2018-05-18 10:30] VITALS: BP 163/71
--- NOTE | 2018-05-18 10:30 | NUR ---
Spoke with Dr. Davis regarding discharge plan. Informed him PT notes said SNF vs Home Health. Dr. Davis stated he does not think pt needs SNF, Ok to set up home health. Plan to discharge this weekend.
[2018-05-18 12:00] VITALS: BP 145/65
[2018-05-18] MEDS ORDERED: ALBUMIN 25% 12.5GM 50ML 100 ML IV ONE (12:15)
[2018-05-18] MEDS: ACETAMINOPHEN 325 MG TAB PO PRN (12:49)
[2018-05-18] MEDS ORDERED: HEPARIN SOD (PORCINE) 1000 UNIT/ML SDV IV PRN (13:30)
[2018-05-18] MEDS ORDERED: ALBUMIN 25% 12.5GM 0.25 GM/ML BTL IV PRN (13:30)
[2018-05-18] MEDS ORDERED: SODIUM CHLORIDE 0.9% 250ML 500 ML IV PRN (13:30)
[2018-05-18] MEDS ORDERED: MANNITOL 25% 12.5GM/50 ML VIAL IV PRN (13:30)
[2018-05-18] MEDS: HYDROCODONE/APAP 5MG-325MG TAB PO PRN (13:37)
--- NOTE | 2018-05-18 14:11 | NUR ---
Spoke to pt's Rafy Mendez regarding discharge plan for this weekend. He stated pt used to have home health but does not remember the name of the company. He had no preference as long as it is in network with insurance. Choice obtained for [facility] and [facility]. Signed copy in chart. Copy left in pt's room for . IMM letter discussed to pt's . He verbalized understanding. Signed copy in chart. Copy at bedside for .
--- NOTE | 2018-05-18 15:47 | NUR ---
Nutrition Intervention Note RD Recommendation(s) for Physician: - Continue Renal diet as tolerated - Recommend Renal MVI and Vitamin C to promote wound healing Plan of Care: RD following, monitoring for tolerance and adequacy Nutrition reason for involvement: Follow up RD Assessment 05/18: Pt was discussed during AM rounds. Pt was getting dialyzed today (temporary). No plan for terminal supervisor dialysis at this time, per RN. Pt was less confused today. Visited pt in the room. Pt reported feeling bad during my visit but denied any nausea or vomiting. Pt denied any chewing or swallowing difficulty. RN recorded 50-75% meal intake. Will continue to monitor and follow. 05/15: 72 YOF admitted for ARF and AMS, pt seen today per dx screen. Pt reports good appetite and po intake currently and BARREL COATER. Pt denies any N/V/C/D. Pt reports UBW range of 174-180#, no wt loss noted. Pt discussed during am rounds, possible need to begin HD with decision per MD pending. Will provide diet education for renal diet on dialysis as needed. Pt with PU's upon admit. Chart reviewed. Will monitor and continue to follow. Principal Problems/Diagnoses: Acute renal failure, CHF, confusion PMH: CKD III, SSS, pacemaker GI: LBM 05/15 Skin: WDL Labs: 05/18: Creatinine 2.03 H 05/15: BUN 36. Cr 4.21, GFR 10 Meds: carafate, synthroid, abx Ht: 64 lb Wt: 182 lb BMI: 31.3 IBW: 120 lb Malnutrition Evaluation (05/15/18) The patient does not meet criteria for a specified degree of malnutrition at this time. Will re-evaluate at follow-up as appropriate. Nutrition Prescription (Diet Order): Renal Estimated Nutritional Needs: 3932-6560 calories/day (22-25 kcal/kg IBW) 33-65 g protein/day (0.6-1.2 g pro/kg IBW) Diet Adequacy: Meeting calorie needs, Meeting protein needs Diet Education Needs Assessment: Diet education not indicated, patient on temporary/transition diet. Will monitor diet education needs. Nutrition Care Level: Low Nutrition Diagnosis: Pt requiring increased protein, vitamin, and mineral needs related to skin integrity and evidenced by stage II sacral PU and stage I L gluteal PU. Goal: Patient will meet 75-100% of estimated needs by follow up Progress: Some progress Interventions: Mineral modified diet, Multivitamin/mineral supplement therapy Monitoring/Evaluation: Total energy intake, Total protein intake, Formula/Solution, Modified diet Signed: Arielle Nam MS, RD, LD
[2018-05-18 16:04] VITALS: BP 139/64
--- NOTE | 2018-05-18 16:35 | Progress Note ---
DATE: May 18, 2018 INTERNAL MEDICINE PROGRESS NOTE SUBJECTIVE: Patient is doing much better today with no complaints. She is alert and oriented x3 with no other issues. She received a second treatment of dialysis yesterday. She has good urine output, and ultrafiltration has been good. OBJECTIVE VITAL SIGNS: Temperature is 98.3, pulse 73, respiratory rate 17, blood pressure 162/71, pulse ox 98% on room air. LAB FINDINGS: Show white count 8.6, hemoglobin 8.7, hematocrit is 26.5, platelets of 327. COAGULATION: None. CHEMISTRY: Sodium 139, potassium is 3.9, chloride 102, bicarb is 27, anion gap is 17, BUN is 33, creatinine is 2.03, glucose is 100, calcium is 9.1. PHYSICAL EXAMINATION GENERAL: Not in acute distress. Alert, oriented x3, cooperative on examination. HEENT: Head: Normocephalic, atraumatic. Eyes: Pupils equally round and reactive to light bilaterally. Extraocular movements intact bilaterally. Neck was supple with good range of motion. Throat: No evidence of any erythema or exudates in the posterior pharynx. Has poor dentition. PULMONARY: Clear to auscultation bilaterally. No wheezing, no rales, no rhonchi, no crackles appreciated. CARDIOVASCULAR: Positive S1/S2. No murmurs, rubs or gallops appreciated. ABDOMEN: Soft, nondistended, nontender to palpation. Bowel sounds present. MUSCULOSKELETAL: Strength is 5/5 throughout. No evidence of any musculoskeletal deficit on examination. No weakness appreciated. NEUROLOGICAL: Cranial nerves 2-12 grossly intact. No evidence of any neurological deficit on exam. SKIN: Intact. Warm to touch. Good capillary refill. PSYCHIATRIC: Normal affect and mood. EXTREMITIES: No edema. Good range of motion throughout. IMPRESSION 1. Metabolic encephalopathy, all resolved. 2. Anemia, resolved. 3. Acute kidney injury on chronic kidney disease stage 3. 4. Lower extremity and upper extremity edema, now resolving. 5. History of coronary artery disease. 6. Hypothyroidism. 7. Urinary retention. PLAN: She will continue with the Roche on discharge per urology recommendations. Will continue with PUF today, P ultrafiltration with removal of 3 or 4 liters as tolerated. Will likely be her last treatment of dialysis as she is doing well. Repeat labs in the morning. If the creatinine stays stable, will pull the line out and discharge hopefully sometime this weekend. Care Rep child welfare consultant monitoring and evaluating. Get a.m. labs. Job#: [id number] EV
[2018-05-18] MEDS: PANTOPRAZOLE SOD 40 MG TABEC PO SCH (16:47)
[2018-05-18] MEDS: CARVEDILOL 12.5 MG TAB PO SCH (16:47)
[2018-05-18] MEDS: BALSAM PERU/CASTOR OIL 60 GM OINT...G. TP SCH (16:47)
[2018-05-18] MEDS: NIFEDIPINE CR 30 MG TAB PO SCH (16:47)
--- NOTE | 2018-05-18 17:14 | NUR ---
Referral for home health faxed to [facility] at [phone] / P [phone]. CM to call and update on discharge date.
[2018-05-18 20:00] VITALS: BP 130/60
[2018-05-18] MEDS: ATORVASTATIN 20 MG TAB PO SCH (22:13)
[2018-05-19] VITALS (7 sets, daily range): BP systolic 106–147; BP diastolic 52–68
[2018-05-19] MEDS: CEFEPIME 1GM/NS 0.9% 50 ML 50 ML IV SCH ×2 (00:34→13:39)
--- NOTE | 2018-05-19 00:49 | NUR ---
walking rounds complete, patient denies needs. bed locked and in lowest position, call light within easy reach.
[2018-05-19 05:49] LABS: BASOPHILS # (AUTO) 0.1 (0.0-0.1); BASOPHILS % 0.7 % (0.0-1.0); EOSINOPHILS # (AUTO) 0.4 (0.0-0.4); EOSINOPHILS % 3.9 % (0.0-6.0); HEMATOCRIT 27.6 % (34.2-44.1); HEMOGLOBIN 9.2 g/dL (12.0-16.0); LYMPHOCYTES # (AUTO) 1.7 (1.0-3.2); LYMPHOCYTES % 18.8 % (18.0-39.1); MEAN CORPUSCULAR HEMOGLOBIN 31.9 pg (28-32); MEAN CORPUSCULAR HGB CONC 33.3 g/dL (31-35); MEAN CORPUSCULAR VOLUME 95.8 fL (81-99); MONOCYTES # (AUTO) 1.4 (0.2-0.8); MONOCYTES % 15.9 % (4.4-11.3); NEUTROPHILS # (AUTO) 5.4 (2.1-6.9); NEUTROPHILS % 60.3 % (38.7-80.0); PLATELET COUNT 319 x10e3/uL (140-360); RED BLOOD COUNT 2.88 x10e6/uL (3.6-5.1); RED CELL DISTRIBUTION WIDTH 13.5 % (11.7-14.4)
[2018-05-19 06:09] LABS: ANION GAP 16.4 mmol/L (8-16); CALCIUM 9.6 mg/dL (8.4-10.2); CREATININE, SERUM 2.65 mg/dL (0.57-1.11); POTASSIUM 3.4 mmol/L (3.5-5.1)
[2018-05-19] MEDS: LEVOTHYROXINE SODIUM 100 MCG TAB PO SCH (06:21)
[2018-05-19] MEDS: CARVEDILOL 12.5 MG TAB PO SCH ×2 (08:00→18:16)
[2018-05-19] MEDS: SUCRALFATE 1 GM/10 ML SUSP NG SCH ×4 (08:30→21:55)
[2018-05-19] MEDS: PANTOPRAZOLE SOD 40 MG TABEC PO SCH (08:30)
[2018-05-19] MEDS: NIFEDIPINE CR 30 MG TAB PO SCH (09:45)
[2018-05-19] MEDS: BALSAM PERU/CASTOR OIL 60 GM OINT...G. TP SCH (10:06)
--- NOTE | 2018-05-19 10:33 | NUR ---
ROUNDS WITH DR. GRANADOS AT THIS TIME. PLAN OF CARE DISCUSSED AMONGST DR. GRANADOS, THIS SENIOR PRINCIPAL SOFTWARE ENGINEER, PATIENT, AND PATIENT'S SPOUSE. ALL QUESTIONS ANSWERED AND CONCERNS ADDRESSED. PLAN IS FOR PT TO HAVE REPEAT LABS TOMORROW WITH POSSIBLE DISCHARGE ON HOME HEALTH WITH PT, PT WILL BE GOING HOME WITH PRICE CATHETER. PATIENT AND SPOUSE VERBALIZED UNDERSTANDING.
--- NOTE | 2018-05-19 12:54 | Progress Note ---
DATE: May 19, 2018 MEDICINE PROGRESS NOTE SUBJECTIVE: The patient is doing well today with no other complaints. She tolerated PUF treatment yesterday very well with no other issues. She denies any cough, congestion, or chest pain today with no other issues at this time. OBJECTIVE VITAL SIGNS: Temperature is 98.5, pulse 67, respiratory rate is 20, blood pressure 147/65. She is 98% on room air. GENERAL: Not in acute distress. Alert and oriented x3. Cooperative on examination. HEENT: Head is normocephalic and atraumatic. Eyes: Pupils are equal, round, and reactive to light bilaterally. Extraocular movements are intact bilaterally. Throat with no evidence of any erythema or exudates in the posterior pharynx. Has poor dentition. NECK: Supple. Good range of motion. PULMONARY: Clear to auscultation bilaterally. No wheezing. No rales. No rhonchi. No crackles appreciated. CARDIOVASCULAR: Positive S1 and S2. No murmurs, rubs, or gallops appreciated. ABDOMEN: Soft, nondistended, and nontender to palpation. Bowel sounds present. MUSCULOSKELETAL: Strength is 5/5 throughout. No evidence of any musculoskeletal deficit on examination. No weakness appreciated. NEUROLOGICAL: Cranial nerves II through XII are grossly intact. No evidence of any neurological deficits on exam. SKIN: Intact. Warm to touch. Good cap refill. PSYCHIATRIC: Normal affect and mood. EXTREMITIES: No edema. Good range of motion throughout. LABS: White count 9, hemoglobin 9.0, hematocrit is 27.6, platelets of 319. Coagulation is normal. Chemistries: Sodium 141, potassium 3.4, chloride 103, bicarb 25, anion gap 16, BUN is 21, creatinine is 2.6, glucose is 98, calcium 9.6. Urinalysis negative. Urine output is 540. IMPRESSION 1. Metabolic encephalopathy, resolved. 2. Anemia, resolved. 3. Acute kidney injury on chronic kidney disease stage 3, resolved. 4. Lower extremity edema and upper extremity edema, resolved. 5. History of coronary artery disease, stable. 6. Hypothyroidism. 7. Urinary retention, continue with Roche on discharge. PLAN: Renal function is 2.6 that is truly her baseline between 2 and 2.5. She had made some urine. It seems like she is not drinking a milk. Right now, we are going to hold dialysis. She does not need any more treatment. We are going to have encourage some fluid hydration before putting any IV fluids at this time. We are going to repeat labs in the morning. If she is stable, likely discharge home tomorrow and she will follow up outpatient with her PCP and customer service sales associate. We are going to get morning labs. Job#: [id number] SUNIL
--- NOTE | 2018-05-19 16:56 | Progress Note ---
DATE: May 19, 2018 CARDIOLOGY PROGRESS NOTE SUBJECTIVE: The patient denies chest pain or shortness of breath. OBJECTIVE VITAL SIGNS: Temperature 97.9 degrees, pulse 76, respiratory rate 18, blood pressure 106/52, oxygen saturation 100% on room air. GENERAL: Awake, alert, in no acute distress, obese. LUNGS: Diminished breath sound in bilateral bases. No wheezes or crackles. CARDIOVASCULAR: Normal rate, regular rhythm. No murmur. Normal S1 and S2. ABDOMEN: Soft, nontender. EXTREMITIES: 1+ pitting edema. CARDIAC MEDICATIONS 1. Nifedipine 60 mg p.o. daily. 2. Carvedilol 12.5 mg p.o. b.i.d. 3. Levothyroxine 100 mcg daily. 4. Atorvastatin 20 mg p.o. at bedtime. LABS: WBC 9.03, hemoglobin 9.2, hematocrit 27.6, platelets 319. Sodium 141, potassium 3.4, chloride 103, CO2 of 25, BUN 21, creatinine 2.65. TELEMETRY: V-paced. IMPRESSION 1. Symptomatic bradycardia, status post pacemaker placement. 2. Chronic systolic heart failure with ejection fraction of 40% to 45%. 3. Coronary artery disease, status post prior percutaneous coronary intervention with left anterior descending D1 percutaneous coronary intervention most recently August 2017. 4. Hypertension. 5. Hyperlipidemia. 6. Acute renal failure, on hemodialysis. RECOMMENDATIONS: Given patient's recently placed bifurcating LAD and diagonal stents less than 1 year prior, recommend reinitiation of dual-antiplatelet therapy. Volume measurement per nephrology given acute renal failure requiring hemodialysis. Continue current cardiac medications. Thank you for this consult. We will continue to follow. Job#: [id number] HAILY
[2018-05-19] MEDS: CLOPIDOGREL BISULFATE 75 MG TAB PO SCH (18:23)
[2018-05-19] MEDS: ASPIRIN 81 MG ENTERIC COATED PO SCH (18:23)
[2018-05-19] MEDS: ATORVASTATIN 20 MG TAB PO SCH (21:55)
[2018-05-20] VITALS (8 sets, daily range): BP systolic 123–153; BP diastolic 57–76
[2018-05-20] MEDS: CEFEPIME 1GM/NS 0.9% 50 ML 50 ML IV SCH ×2 (00:08→12:28)
[2018-05-20] MEDS: LEVOTHYROXINE SODIUM 100 MCG TAB PO SCH (05:50)
[2018-05-20 06:01] LABS: BASOPHILS # (AUTO) 0.1 (0.0-0.1); BASOPHILS % 0.5 % (0.0-1.0); EOSINOPHILS # (AUTO) 0.4 (0.0-0.4); EOSINOPHILS % 4.2 % (0.0-6.0); HEMATOCRIT 26.3 % (34.2-44.1); HEMOGLOBIN 8.8 g/dL (12.0-16.0); LYMPHOCYTES # (AUTO) 1.9 (1.0-3.2); LYMPHOCYTES % 18.7 % (18.0-39.1); MEAN CORPUSCULAR HEMOGLOBIN 31.8 pg (28-32); MEAN CORPUSCULAR HGB CONC 33.5 g/dL (31-35); MEAN CORPUSCULAR VOLUME 94.9 fL (81-99); MONOCYTES # (AUTO) 1.3 (0.2-0.8); MONOCYTES % 13.3 % (4.4-11.3); NEUTROPHILS # (AUTO) 6.3 (2.1-6.9); NEUTROPHILS % 62.9 % (38.7-80.0); PLATELET COUNT 312 x10e3/uL (140-360); RED BLOOD COUNT 2.77 x10e6/uL (3.6-5.1); RED CELL DISTRIBUTION WIDTH 13.4 % (11.7-14.4)
[2018-05-20 06:32] LABS: ANION GAP 15.1 mmol/L (8-16); CALCIUM 9.4 mg/dL (8.4-10.2); CREATININE, SERUM 3.2 mg/dL (0.57-1.11); POTASSIUM 3.1 mmol/L (3.5-5.1)
[2018-05-20] MEDS: CLOPIDOGREL BISULFATE 75 MG TAB PO SCH (08:27)
[2018-05-20] MEDS: SUCRALFATE 1 GM/10 ML SUSP NG SCH ×4 (08:27→21:55)
[2018-05-20] MEDS: NIFEDIPINE CR 30 MG TAB PO SCH (08:27)
[2018-05-20] MEDS: PANTOPRAZOLE SOD 40 MG TABEC PO SCH (08:27)
[2018-05-20] MEDS: CARVEDILOL 12.5 MG TAB PO SCH ×2 (08:27→16:49)
[2018-05-20] MEDS: HYDROCODONE/APAP 5MG-325MG TAB PO PRN (08:27)
[2018-05-20] MEDS: ASPIRIN 81 MG ENTERIC COATED PO SCH (08:27)
[2018-05-20] MEDS: BALSAM PERU/CASTOR OIL 60 GM OINT...G. TP SCH (09:16)
[2018-05-20] MEDS ORDERED: POTASSIUM CHLORIDE 20 MEQ TAB CR PO NR (10:30)
--- NOTE | 2018-05-20 10:42 | NUR ---
ROUNDS WITH DR. GRANADOS. IN-DEPTH DISCUSSION REGARDING KIDNEY FUNCTION STATUS. PLAN IS FOR PATIENT TO RECEIVE HYDRATION, LABS IN AM, AND DEPENDING ON LABS, PT MAY REQUIRE KIDNEY BIOPSY TO DETERMINE CAUSE OF DECLINING KIDNEY FUNCTION. PATIENT AND SPOUSE VERBALIZED UNDERSTANDING. QUESTIONS ASKED AND ANSWERED.
[2018-05-20] MEDS: SODIUM CHLORIDE 0.9% 1000ML 1,000 ML IV SCH (11:01)
--- NOTE | 2018-05-20 13:36 | Progress Note ---
DATE: May 20, 2018 MEDICINE PROGRESS NOTE SUBJECTIVE: The patient is doing well today with no complaints. She has very decreased urine output today and what has been recorded. She initially had the urine output on the 6th, but then over the last several days, her urine outpatient had declined to 190 mL. My thought process is that the patient developed ATN while on hemodialysis and may have gotten hypotensive occasionally. While at here, her blood pressure has been relatively okay. She is also not drinking a lot of fluids and we tried to discuss this with the family thoroughly at bedside. OBJECTIVE VITAL SIGNS: Temperature is 98.9, pulse 79, respiratory rate is 18, blood pressure 153/67, pulse ox 100% on room air. GENERAL: Not in acute distress. Alert and oriented x3. Cooperative on examination. HEENT: Head is normocephalic and atraumatic. Eyes: Pupils are equal, round, and reactive to light bilaterally. Extraocular movements are intact bilaterally. Throat with no evidence of any erythema or exudates in the posterior pharynx. Has poor dentition. NECK: Supple. Good range of motion. PULMONARY: Clear to auscultation bilaterally. No wheezing. No rales. No rhonchi. No crackles appreciated. CARDIOVASCULAR: Positive S1 and S2. No murmurs, rubs, or gallops appreciated. ABDOMEN: Soft, nondistended, and nontender to palpation. Bowel sounds present. MUSCULOSKELETAL: Strength is 5/5 throughout. No evidence of any musculoskeletal deficit on examination. No weakness appreciated. NEUROLOGICAL: Cranial nerves II through XII are grossly intact. No evidence of any neurological deficits on exam. SKIN: Intact. Warm to touch. Good cap refill. PSYCHIATRIC: Normal affect and mood. EXTREMITIES: No edema. Good range of motion throughout. LABS: Show white count 10, hemoglobin 8.8, hematocrit is 26, platelets of 312. Chemistries: Sodium is 133, potassium 3.1, chloride 101, bicarb 23, anion gap of 15, BUN is 32, creatinine is 3.2. So her trends with ultrafiltration, creatinine was 2, then 2.6, then 3.2. Glucose is 113. MICROBIOLOGY: Blood culture is negative. Urine culture is negative. IMPRESSION 1. Metabolic encephalopathy, resolved. 2. Anemia, resolved. 3. Acute kidney injury on chronic kidney disease stage 3. 4. Lower extremity edema and upper extremity edema, resolved. 5. History of coronary artery disease. 6. Hypothyroidism. 7. Urinary retention and will continue with Roche on discharge. PLAN: At this time, the patient has made minimal urine output. I feel that she may have developed ATN prior to dialysis and during dialysis, likely leading to her decreased urine output. She is also not drinking a lot of fluids, which I am going to go ahead and start her on NS at 75 mL per hour continuously for 24 hours. I discussed with the patient as well as her at bedside that she will likely need a renal biopsy if I see no recovery by tomorrow. They verbalized understanding and agreed with plan of care. At this time, I am getting repeat labs in the morning. If her renal function improves, then she can be discharged tomorrow with followup with her PCP with repeat labs. Otherwise, at this time she will need to stay due to rise in creatinine. I believe her renal function at baseline was 1.5, but on the last admission, the patient was given contrast due to the left heart cath. That being said, she may have developed ATN and may be have developed a new baseline kidney function. The patient had prior cardiac disease leading to likely placing her into a new baseline. Job#: [id number] SUNIL
--- NOTE | 2018-05-20 15:55 | NUR ---
PT BACK TO BED WITHOUT INCIDENT; TOLERATED WELL.
--- NOTE | 2018-05-20 16:40 | NUR ---
ROUNDS WITH DR. CHLOE INIGUEZ
--- NOTE | 2018-05-20 17:04 | Progress Note ---
DATE: May 20, 2018 CARDIOLOGY PROGRESS NOTE SUBJECTIVE: Patient denies chest pain or shortness of breath. OBJECTIVE VITAL SIGNS: Temperature 97.6 degrees, pulse 70, respiratory rate 16, blood pressure 129/76, oxygen saturation 100% on room air. GENERAL: Awake, alert, no acute distress, obese. LUNGS: Diminished breath sounds bilateral bases. No wheezes or crackles. CARDIOVASCULAR: Normal rate. Regular rhythm. No murmur. Normal S1, S2. ABDOMEN: Soft, nontender. EXTREMITIES: Trace edema. CARDIAC MEDICATIONS 1. Plavix 75 mg p.o. daily. 2. Aspirin 81 mg p.o. daily. 3. Nifedipine 60 mg p.o. daily. 4. Coreg 12.5 mg p.o. b.i.d. 5. Levothyroxine 100 mcg p.o. daily. 6. Atorvastatin 20 mg p.o. q.h.s. LABS: WBC 10.05, hemoglobin 8.8, hematocrit 26.3, platelets 312. Sodium 136, potassium 3.1, chloride 101, CO2 of 23, BUN 32, creatinine 3.2. TELEMETRY: V-paced. IMPRESSION 1. Symptomatic bradycardia, status post permanent pacemaker placement. 2. Chronic systolic heart failure with ejection fraction of 40-45%. 3. Coronary artery disease, status post percutaneous coronary intervention with left anterior descending and diagonal-1 intervention, most recently in August 2017. 4. Hypertension. 5. Hyperlipidemia. 6. Acute renal failure, on hemodialysis. RECOMMENDATIONS: Given patient's recently placed bifurcating LAD and diagonal stents less than 1 year prior, we have re-initiated dual-antiplatelet therapy. Monitor for GI bleeding. Follow H and H. Volume management per nephrology given acute renal failure, requiring hemodialysis. Continue current cardiac medications. Thank you for this consult. We will continue to follow. Job#: [id number] PAZ
--- NOTE | 2018-05-20 18:54 | NUR ---
HANDOFF REPORT GIVEN TO ONCOMING LEAD INSTALLER NURSE.
--- NOTE | 2018-05-20 19:23 | NUR ---
Received patient aaox3, resting in bed. stable condition. puente intact. bed locked and in lowest position. call light within easy reach.
[2018-05-20] MEDS: ATORVASTATIN 20 MG TAB PO SCH (21:55)
[2018-05-21] VITALS: BP 143/60
[2018-05-21] MEDS: SODIUM CHLORIDE 0.9% 1000ML 1,000 ML IV SCH ×2 (01:20→13:25)
[2018-05-21 04:00] VITALS: BP 143/65
[2018-05-21] MEDS: LEVOTHYROXINE SODIUM 100 MCG TAB PO SCH (05:29)
[2018-05-21 06:16] LABS: ANION GAP 15.3 mmol/L (8-16); CREATININE, SERUM 2.97 mg/dL (0.57-1.11); POTASSIUM 3.3 mmol/L (3.5-5.1)
[2018-05-21 07:42] VITALS: BP 163/79
[2018-05-21] MEDS: SUCRALFATE 1 GM/10 ML SUSP NG SCH ×2 (10:30→11:30)
[2018-05-21] MEDS: CLOPIDOGREL BISULFATE 75 MG TAB PO SCH (10:30)
[2018-05-21] MEDS: ASPIRIN 81 MG ENTERIC COATED PO SCH (10:30)
[2018-05-21] MEDS: NIFEDIPINE CR 30 MG TAB PO SCH (10:30)
[2018-05-21] MEDS: CARVEDILOL 12.5 MG TAB PO SCH (10:30)
[2018-05-21] MEDS: PANTOPRAZOLE SOD 40 MG TABEC PO SCH (10:30)
--- NOTE | 2018-05-21 10:44 | NUR ---
MD GRANADOS INTO SEE PT, DISCUSSED POC, PT AM MEDICATIONS GIVEN AT 1030 SINCE SHE IS NO LONGER NPO, PT NOW AMBULATING IN HALLWAY WITH PHYSICAL THERAPIST AT SIDE AND USE OF WALKER
[2018-05-21 10:49] VITALS: BP 158/76
--- NOTE | 2018-05-21 11:22 | NUR ---
Pt is discharging today. CM called [facility] and spoke to Gretta with intake. She stated that they are unable to accept pt at this time due to staffing. CM called [facility] (second choice) and spoke with Linnette. She verified that they take pt's insurance. Informed her of referral. Referral was faxed to [phone]. P [phone] Home health information given to pt's . Informed him to call company if he does not hear from them within the next day. IMM letter discussed with pt and her . They verbalized understanding. Pt asked her to sign. Signed copy placed in chart. Copy to pt.
[2018-05-21 11:32] VITALS: BP 155/71
--- NOTE | 2018-05-21 11:49 | NUR ---
WOUND CARE CONSULTATION: FOLLOW UP Patient admitted for Acute Renal Failure, CHF, Dehydration, DM type2,Confusion, Swelling to BLE. WBC10.05 HGB8.8 HCT26.3 NEUT%62.9 GLU96 WC FOLLOW UP: -Waldemar Score 18 -Alternating Pressure Mattress in Place PATIENT VISIT: - Patient sitting on chair at bedside, calm and in good spirits. - at bedside. - Recurrent wound to her bottom. States it happens frequently. - Left gluteal pink, intact, no redness. - Mid gluteal fold ulcer, macerated periwound 0.2cm, with 100% granulation present, Wound is smaller than previous visit. Slow Healing Ulcer. IMPRESSION: 1. Sacral - Slow Healing, Recurrent, Stage II- P.U. P.O.A. 2. Left Gluteal - Stage I - P.U. - P.O.A. ( RESOLVED) RECOMMENDATION: 1. Sacral - Stage II- P.U. POA - - Cleanse wound with normal saline and 4x4 gauze - Apply Venelex Ointment and Cover with Allevyn Sacrum Foam Dressing daily and PRN Soiling 2. Turn and reposition every 2 hours. 3. Offload Heels with Pillows while in bed 4. Continue Moderate PUP Protocol. 5. Continue Alternating Pressure Air Mattress. Addendum: 05/21/18 at 1155 by Scottie Bernal RN Amended: Links added.
--- NOTE | 2018-05-21 13:57 | Discharge Summary ---
FINAL DISCHARGE DIAGNOSES 1. Metabolic encephalopathy, resolved. 2. Anemia, resolved. 3. Acute kidney injury on chronic kidney disease, stage 3, improving. 4. Lower extremity edema with upper extremity edema, resolved. 5. History of coronary artery disease. 6. Hypothyroidism. 7. Urinary retention. Will continue with Roche on discharge. CONSULTANTS 1. Urology. 2. Cardiology. VITAL SIGNS: Temperature 98.5, pulse 80, respiratory rate 16, blood pressure 142/65. Pulse ox 99% on room air. LAB FINDINGS: White count 10, hemoglobin 8.8, hematocrit 26, platelets 312. Coagulation: PT 12.9, INR 0.89, PTT 35. Chemistries: Sodium 138, potassium 3.3, chloride 105, bicarb 21, anion gap 15, BUN 33, creatinine 2.97. Glucose of 96. Calcium is 9. Urinalysis was found to be negative. Hepatitis panel was negative. MICROBIOLOGY: Blood cultures were negative. Urine cultures were negative. IMAGING STUDIES: Chest x-ray on admission, 05/12/2018, shows evidence of pulmonary edema. Brain CT showed no acute intracranial hemorrhage or brain CT findings. All findings were found to be negative. Renal ultrasound showed right kidney 11 cm and left kidney 9.6 cm. No evidence of hydronephrosis or stone. Chest x-ray repeat shows some mild pleural effusions. HOSPITAL COURSE: This is a 72-year-old female with known history of CAD and CKD stage 3. Comes in with concerns from the family that she was confused, perhaps some encephalopathy. While here in the hospital, the patient seemed to be very alert and oriented x4 during my eval. Blood and urine cultures were found to be negative. There was no source of infection leading to her encephalopathy. She was found to be anemic, which improved throughout the hospital course. She did develop acute kidney injury on CKD. Apparently, the patient had a left heart cath approximately 7 to 10 days ago on a prior admission here at [facility]. On her presentation, creatinine was 3.97 and continued to up-trend. Patient continued to be much alert and oriented x4. Family insisted on hemodialysis. I discussed with them the risks and benefits involved with hemodialysis. It seems like the patient's underlying etiology would likely be ATN from contrast-induced nephropathy, but she was continuing to make urine. Once I described the risks and benefits, the family still intended to have hemodialysis performed. A dialysis catheter was placed. Hemodialysis was performed on several treatments. She also had pure ultrafiltration with fluid removal. The patient's renal function did improve. On 05/20/2018, it was felt the patient seemed to be dehydrated. She was started on IV fluids with a downtrending creatinine. On discharge, it was 2.97. The patient had no symptoms. Her electrolytes were stable. She also developed urinary retention for which a Roche was consulted. Urology was consulted and recommended continuing with the Roche with urodynamic study as an outpatient. Cardiology was consulted due to the fact that the patient had a recent left heart cath to determine if the patient needs to be on antiplatelet therapy. According to cardiology, due to the fact that the patient had a bifurcating LAD diagonal stent less than a year ago, they recommended reinitiating dual antiplatelet therapy. On discharge, the patient was back to normal baseline. I had a long discussion with the family at bedside and recommended repeating the chemistry in about 1 week's time to see if the creatinine will downtrend. On discharge, the patient was back to normal baseline with no other complaints. The dialysis catheter was removed. On the day of discharge, the vital signs were stable. Labs were reviewed and stable. The patient was seen and evaluated examined thoroughly on the day of discharge. No new complaints. Patient verbalized understanding and agrees with plan of care. Will follow up accordingly as an outpatient with the primary care physician in 1 week. Will repeat labs. Will see urology in 1 week for urodynamic studies. MEDICATIONS: See med reconciliation form. DISPOSITION: Home. CONDITION: Stable. DIET: Heart healthy. In the event of any worsening symptoms, the patient was advised to come back to the ED for further evaluation. Discharge summary took greater than 35 minutes. Job#: [id number]
--- NOTE | 2018-05-21 14:00 | NUR ---
DIRECTOR PEOPLESOFT REMOVED TRIALYSIS CATH FROM R NECK, PRESSURE HELD, CENTRAL LINE DRESSING PLACED, PT TOLERATED WELL
--- NOTE | 2018-05-21 14:24 | Progress Note ---
DATE: May 21, 2018 CARDIOLOGY PROGRESS NOTE SUBJECTIVE: Patient denies chest pain or shortness of breath. OBJECTIVE VITAL SIGNS: Temperature 97.5 degrees, pulse 79, respiratory rate 20, blood pressure 155/71, oxygen saturation 100% on room air. GENERAL: Awake, alert, elderly woman, no acute distress. LUNGS: Clear to auscultation bilaterally other than decreased breath sounds at the bases. No wheezes or crackles. CARDIOVASCULAR: Normal rate. Regular rhythm. No murmur. Normal S1, S2. ABDOMEN: Soft, nontender. EXTREMITIES: Trace edema. CARDIAC MEDICATIONS 1. Plavix 75 mg p.o. daily. 2. Aspirin 81 mg p.o. daily. 3. Nifedipine 60 mg p.o. daily. 4. Carvedilol 12.5 mg p.o. b.i.d. 5. Atorvastatin 20 mg p.o. at bedtime. 6. Levothyroxine 100 mcg p.o. daily. LABS: Sodium 138, potassium 3.3, chloride 105, CO2 21, BUN 33, creatinine 2.97. TELEMETRY: V-paced. IMPRESSIONS 1. Symptomatic bradycardia, status post permanent pacemaker placement. 2. Chronic systolic heart failure with ejection fraction of 40% to 45%. 3. Coronary artery disease, status post percutaneous coronary intervention with left anterior descending and diagonal-1 intervention, most recently in August 2017. 4. Hypertension. 5. Hyperlipidemia. 6. Acute renal failure, transiently on hemodialysis. RECOMMENDATIONS: Given patient's recently placed bifurcating LAD and diagonal stents less than 1 year prior, antiplatelet therapy has been reinitiated. Monitor closely for bleeding. Volume management per nephrology given acute renal failure with transient need for hemodialysis. Blood pressure has been borderline for age. Continue current cardiac medications. Further titration as outpatient. Thank you for this consult. We will continue to follow. Job#: [id number] ALEXANDRA
--- NOTE | 2018-05-21 15:14 | NUR ---
DISCHARGE INSTRUCTIONS REVIEWED WITH PT AND FAMILY, EDUCATED AND DEMONSTRATED HOW TO CHANGE BETWEEN LEG AND OVERNIGHT BAG, BOTH VERBALIZED UNDERSTANDING, WHEELED OFF UNIT VIA WC FOR DISCHARGE, NO CHANGE IN CONDITION
--- NOTE | 2018-05-21 15:55 | NUR ---
Received call from Emani with [facility]. She will put pt on schedule to be seen tomorrow.
--- NOTE | 2018-05-23 08:15 | Consultation ---
DATE OF CONSULTATION: May 13, 2018 UROLOGY CONSULTATION Consultation called by Dr. Davis for urinary retention. HISTORY OF PRESENT ILLNESS: Ms. Mendez is a 72-year-old female admitted to the hospital and found to have inability to urinate. Failure of this, urology consultation was requested for this. PAST MEDICAL HISTORY: Notable for CAD, congestive heart failure, hypertension, hypothyroidism, diabetes mellitus, obesity, hyperlipidemia, status post cholecystectomy, status post hysterectomy, status post skin cancer. MEDICATIONS: Please see MAR. ALLERGIES: NKDA. SOCIAL HISTORY: Denied smoking or drinking. FAMILY HISTORY: Denied urologic stones or malignancies. REVIEW OF SYSTEMS: Noncontributory other than problems mentioned above in the history of present illness. PHYSICAL EXAMINATION GENERAL: Elderly female in no acute distress. VITALS: Current temperature 98.1, pulse 66, respirations 18, blood pressure 174/73. HEENT: Sclerae are anicteric. NECK: Supple. BACK: Without costovertebral angle tenderness bilaterally. ABDOMEN: Soft, nontender and nondistended. No mass. No palpable hernias. : Normal female external genitalia. EXTREMITIES: Without edema in extremities. PSYCH: Appropriate mood. SKIN: Normal color. PERTINENT LABORATORY DATA: Sodium 140, potassium 5.5, chloride 111, bicarb 18, BUN 34, creatinine 4.12, glucose 75. Hemoglobin 7.5, hematocrit 22.7 and platelet count 307,000. 9660. PT of 12.9, PTT of 35. Urinalysis with 0-5 reds and 0-[address] scan on April 29, 2018, with bilateral small kidney stones. IMPRESSION 1. Kidney stones. 2. Urine retention. 3. Chronic kidney disease, stage 4. 4. Anemia. 5. Hypertension. 6. Hyperkalemia. PLAN: Defer lytes and CKD, 4 to nephrology. For retention, will continue Roche catheter. Patient will benefit from outpatient urodynamics. For the patient's kidney stone, will employ a trial of passage. Thank you for allowing me to participate in the care of your patient. We will be happy to follow along with you. Job#: [id number] JAM
== END 2018-05-21 15:15 | disposition home health service (06) | DRG 291 ==
LOC: ER 07:00 → ERHOLD 09:02 → IMCU 12:59 → OBSVTOIN 05-13 12:33 → MED/SURG 05-13 20:56
PROVIDERS: ADMIT Internal Medicine; ATTEND Internal Medicine
PROC: 02HV33Z Insertion of Infusion Device into Superior Vena Cava, Percutaneous Approach (ICD-10-PCS; principal; 2018-05-16)
PROC: 5A1D70Z Performance of Urinary Filtration, Intermittent, Less than 6 Hours Per Day (ICD-10-PCS; 2018-05-16)
PROC: 5A1D70Z Performance of Urinary Filtration, Intermittent, Less than 6 Hours Per Day (ICD-10-PCS; 2018-05-17)
PROC: 5A1D70Z Performance of Urinary Filtration, Intermittent, Less than 6 Hours Per Day (ICD-10-PCS; 2018-05-18)
DX: I13.0 Hypertensive heart and chronic kidney disease with heart failure and stage 1 through stage 4 chronic kidney disease, or unspecified chronic kidney disease (principal); N17.0 Acute kidney failure with tubular necrosis; G93.41 Metabolic encephalopathy; I50.23 Acute on chronic systolic (congestive) heart failure; N39.0 Urinary tract infection, site not specified; E86.0 Dehydration; I25.10 Atherosclerotic heart disease of native coronary artery without angina pectoris; D64.9 Anemia, unspecified; R60.0 Localized edema; E03.9 Hypothyroidism, unspecified; R33.9 Retention of urine, unspecified; E87.5 Hyperkalemia; I49.5 Sick sinus syndrome; Z95.0 Presence of cardiac pacemaker; E66.9 Obesity, unspecified; Z68.29 Body mass index [BMI] 29.0-29.9, adult; N18.3 Chronic kidney disease, stage 3 (moderate); Z95.5 Presence of coronary angioplasty implant and graft; T42.6X5A Adverse effect of other antiepileptic and sedative-hypnotic drugs, initial encounter; N14.1 Nephropathy induced by other drugs, medicaments and biological substances; T50.8X5A Adverse effect of diagnostic agents, initial encounter
CPT/HCPCS: 36415; 36556; 70450; 71045; 74470; 76770; 76937; 80048; 80053; 81001; 82140; 82550; 82553; 82948; 83605; 83735; 84484; 85025; 85610; 85730; 86704; 86706; 86707; 86850; 86900; 87040; 87086; 87350; 90962; 93005; 93970; 97139; 99284; C1769; G0378; J0692; J1644; J1940; J2405; J7030; J7050

== ENCOUNTER → 2022-02-17 | Day surgery (SDC) | payer MEDICARE ==
[2022-02-15 12:20] LABS: HEMOGLOBIN 9.7 g/dL (12.0-16.0)
[2022-02-15 12:41] LABS: ANION GAP 16.4 mmol/L (8-16); CALCIUM 9.4 mg/dL (8.4-10.2); CREATININE, SERUM 2.05 mg/dL (0.57-1.11); POTASSIUM 4.4 mmol/L (3.5-5.1)
[~2022-02-17] MED LIST changes: +ATORVASTATIN CA20 MG PO; +BALANCED SALT SOLN (OPTH) 15 ML BTL IO ONE; +BUPIVACAINE HCL 0.5% INJ 30 ML VIAL INJ ONE; +CARVEDILOL12.5 MG PO; +CLOPIDOGREL75 MG PO; +CYCLOBENZAPRINE10 MG PO; +EPINEPHRINE HCL 1:1000 1ML 1 MG/ML AMP ONE; +FISH OIL 1,001000 M1 PO; +GATIFLOXACIN(OPTH) 5 ML LIQD ONE; +HYDRALAZINE HCL 20 MG/ML VIAL ONE; +LASIX20 MG PO; +LIDOCAINE 2%/ EPINEPHRINE 20ML MDV ONE; +LIDOCAINE HCL 2% LOCAL INJ 5 ML SDV VIAL INJ ONE; +LIDOCAINE HCL-PF 4% 40 MG/1 ML 5ML AMP ONE; +LISINOPRIL10 MG PO; +METFORMIN HCL850 MG PO; +MIDAZOLAM HCL 2 MG/2 ML VIAL ONE; +NEURONTIN300 MG PO; +NIFEDIPINE ER30 M1 PO; +PANTOPRAZOLE SO40 MG PO; +PHENYLEPHRINE HCL 2 ML DROPS ONE; +POVIDONE IODINE 0.05% 0.05 % ML PO ONE; +PROPOFOL IV EMULSION 10 MG/ML 20 ML VIAL ONE; +SYNTHROID100 MCG PO; +TOBRAMYCIN/DEXAMETHASONE(OPTH) 3.5 GM TUBE ONE; +VITAMIN B122500 MCG PO; +VITAMIN D3250 MCG PO
[2022-02-17 14:00] VITALS: BP 143/72
== END | disposition home or self-care (01) ==
LOC: OR 09:39
PROVIDERS: ATTEND Ophthalmology
DX: H25.12 Age-related nuclear cataract, left eye (principal); E11.9 Type 2 diabetes mellitus without complications; I25.2 Old myocardial infarction; I10 Essential (primary) hypertension; I25.10 Atherosclerotic heart disease of native coronary artery without angina pectoris; E03.9 Hypothyroidism, unspecified; K21.9 Gastro-esophageal reflux disease without esophagitis; Z01.810 Encounter for preprocedural cardiovascular examination; Z01.812 Encounter for preprocedural laboratory examination; Z79.02 Long term (current) use of antithrombotics/antiplatelets; Z79.82 Long term (current) use of aspirin; Z79.84 Long term (current) use of oral hypoglycemic drugs; Z79.899 Other long term (current) drug therapy; Z95.0 Presence of cardiac pacemaker
CPT/HCPCS: 36415 ×2; 66984; 80048; 82948; 85014; 85018; 93005; J0171; J0360; J2001; J2250; J2704